=== PATIENT | female | born 1940 | race Caucasian/White ===

== ENCOUNTER → 2016-03-20 | Outpatient (CLI) | payer OTHER ==
[~2016-03-20] MED LIST: ASPI81TA28 PO; CHOL100010 PO; LATA0.009 OPB; LISI1TAB3 PO; PRLSR20 PO; ROSU10TA24 PO; TURM500T PO
--- NOTE | 2016-03-20 10:56 | DIAGNOSTIC IMAGING REPORT ---
LEFT HIP INJECTION UNDER FLUOROSCOPIC GUIDANCE CLINICAL HISTORY: Arthritis. Steroid injection. PROCEDURE: The risks, benefits, and alternatives to the procedure were discussed with the patient. Written informed consent was obtained. The patient was placed supine on the fluoroscopy table, and a left hip injection was performed under fluoroscopic guidance. The area was prepped and draped in the usual sterile fashion. The skin and soft tissues were anesthetized with local 1% lidocaine. The left hip joint was accessed utilizing a 22-gauge needle, and intra-articular positioning was confirmed by injecting a small volume of Optiray 300. The prescribed dosage of 2 cc of betamethasone and 8 cc of 0.5% bupivacaine was then injected into the joint space. The procedure was well tolerated and without immediate complication. The patient left the department in satisfactory condition. FLUOROSCOPY TIME: 11 seconds. IMPRESSION: Successful steroid injection of the left hip under fluoroscopic guidance. Electronically signed by: Dave Maradiaga M.D. 03/20/2016 10:54 AM Dictated Date/Time: 03/20/2016 10:52 AM
== END | disposition home or self-care (01) ==
LOC: C.RADBC 09:52
PROVIDERS: ATTEND Orthopaedic Surgery Sports Medicine
DX: M16.12 Unilateral primary osteoarthritis, left hip (principal)

== ENCOUNTER → 2016-09-21 | Outpatient (CLI) | payer OTHER ==
--- NOTE | 2016-09-21 14:39 | Discharge Instructions ---
Discharge Instructions Procedure Procedure Date: Sep 21, 2016. Reason for visit: Left Hip Pain/Djd. Discharge Discharge Date: Sep 21, 2016. Discharge Diagnosis: Left hip pain. Status post left hip steroid injection. Instructions Activity Recommendations: No limitations Return to School/Work: no limitations Recommended Home Diet: No Limitations Allergies Coded Allergies: Promethazine (Verified Adverse Reaction, Intermediate, GI SYMPTOMS, ) Restlessness,Agitation,Dyskinetic movements,confusion and Nausea [place] Recommendations: Call your doctor if: * Temperature above 101 degrees * Pain not relieved by pain medicine ordered * There is increased drainage or redness from any incision * You have any unanswered questions or concerns. Your Doctors Instructions noted above were prepared by provider Sloan Oswald. Patient Signature Section: Patient Instructions Signature Page Zo Elizabeth Patient (or Guardian) Signature/Date: I have read and understand the instructions given to me by my caregivers. Caregiver/RN/Doctor Signature/Date: The above-named patient and/or guardian has received patient instructions on this date. + Original Patient Signature Page (only) stays with chart. Please make copy for patient.
--- NOTE | 2016-09-21 14:53 | DIAGNOSTIC IMAGING REPORT ---
FLUOROSCOPIC GUIDED LEFT HIP STEROID INJECTION FLUOROSCOPY TIME: 16 seconds HISTORY: Left hip pain.. PROCEDURE: After obtaining written informed consent, the patient was placed supine on the fluoroscopy table. A suitable site for needle insertion was marked using fluoroscopic guidance. The left hip was prepped and draped in the usual sterile fashion. 1% lidocaine was used for skin, subcutaneous and deep soft tissue anesthesia. Under intermittent fluoroscopic guidance, a 22 gauge x 3.5 inch spinal needle was inserted into the left hip joint. 2 cc of Optiray 300 was injected to confirm the intra-articular location. This is followed by a mixture of 8cc of 0.5% bupivacaine and 2 cc of betamethasone at the request of the referring physician. The needle was then removed. There were no apparent complications. IMPRESSION: Fluoroscopic-guided left hip steroid injection without immediate complication. Electronically signed by: Cory Oswald 09/21/2016 2:52 PM Dictated Date/Time: 09/21/2016 2:51 PM
== END | disposition home or self-care (01) ==
LOC: C.RADBC 13:40
PROVIDERS: ATTEND Orthopaedic Surgery Sports Medicine
DX: M25.552 Pain in left hip (principal)

== ENCOUNTER 2017-03-23 21:41 | Inpatient (IN) | payer OTHER ==
[~2017-03-23] VITALS: Ht 154.9 cm; Wt 58.5 kg
[~2017-03-23 21:41] MED LIST changes: -ROSU10TA24 PO; +ROSU10TA35 PO
[2017-03-23] MEDS ORDERED: SODIUM CHLORIDE 0.9% 1000ML 1,000 ML IV STA (22:21)
[2017-03-23] MEDS ORDERED: SODIUM CHLORIDE 0.9% 1000ML 500 ML IV STA (22:21)
[2017-03-23] MEDS ORDERED: ONDANSETRON INJ 2 MG/ML 2 ML VIAL IV STA (22:21)
[2017-03-23] MEDS: FENTANYL CITRATE INJ 50 MCG/1 ML 2 ML VIAL IV PRN (22:43)
[2017-03-23 22:51] LABS: BASO % 0.1 %; BASO ABS # 0.01 K/uL (0-0.2); EOS % 0.1 %; EOS ABS # 0.02 K/uL (0-0.5); HEMATOCRIT 43.3 % (37-47); HEMOGLOBIN 14.8 g/dL (12.0-16.0); IG# 0.04 K/uL (0.00-0.02); LYMPH % 3.8 %; LYMPH ABS # 0.66 K/uL (1.2-3.4); MEAN CELL VOLUME 87.5 fL (80-100); MEAN CORPUSCULAR HEMOGLOBIN 29.9 pg (25-34); MEAN CORPUSCULAR HGB CONC 34.2 g/dl (32-36); MEAN PLATELET VOLUME 10.5 fL (7.4-10.4); MONO ABS # 0.53 K/uL (0.11-0.59); NEUT % 92.8 %; NEUT ABS # 16.26 K/uL (1.4-6.5); PLATELET COUNT 193 K/uL (130-400); RED CELL DISTRIBUTION WIDTH CV 13.9 % (11.5-14.5); RED CELL DISTRIBUTION WIDTH SD 43.7 fL (36.4-46.3); WHITE BLOOD COUNT 17.52 K/uL (4.8-10.8)
[2017-03-23 23:09] LABS: ALBUMIN 3.4 gm/dl (3.4-5.0); CALCIUM 9.9 mg/dl (8.5-10.1); CREATININE 0.89 mg/dl (0.60-1.20); POTASSIUM 3.6 mmol/L (3.5-5.1)
[2017-03-23 23:12] LABS: TOTAL PROTEIN 6.9 gm/dl (6.4-8.2)
[2017-03-24] VITALS (7 sets, daily range): BP systolic 127–171; BP diastolic 71–108; PULSE 76–78; TEMP 36.2–37.7; O2SAT 91–96; Ht 154.9 cm; Wt 58.5 kg
[2017-03-24] MEDS ORDERED: ONDANSETRON INJ 2 MG/ML 2 ML VIAL IV STA (00:14)
[2017-03-24] MEDS: FENTANYL CITRATE INJ 50 MCG/1 ML 2 ML VIAL IV PRN (00:20)
[2017-03-24] MEDS ORDERED: PIPERACILLIN/TAZOBACTAM 4.5 GM/100ML D5W IV STA (00:26)
[2017-03-24] MEDS ORDERED: XLTOPS OPB (00:53)
--- NOTE | 2017-03-24 01:02 | EMERGENCY ROOM VISIT NOTE ---
History Report prepared by Elaina: Moose Otoole Under the Supervision of: Dr. Ramiro Leung M.D. First contact with patient: 22:20 Chief Complaint: VOMITING Stated Complaint: COLITIS,PAIN IN INTESTINES,VOMITING,CANNOT GO History of Present Illness The patient is a 76 year old female who presents to the Emergency Room with complaints of constant severe abdominal pain starting 4 days ago. The patient's family states that the patient has a history of colitis, and she was given an enema two hours ago, and she has been having abdominal pain since then and vomiting. The patient notes that the pain is very similar to her last colitis flares. She has not had any appetite recently. The family states that the patient has been eating things that she is not supposed to. The patient additionally notes that she is having some shoulder pain. Pt denies LOC, headache, fevers, chills, diaphoresis, visual changes, neck pain, chest pain, breathing difficulties, back pain, melena, hematochezia, rectal bleeding, urinary symptoms, numbness, weakness, leg swelling, lymphadenopathy, rash, or other complaints. Source of History: patient, family Onset: 4 days ago Position: abdomen Symptom Intensity: severe Timing: constant Associated Symptoms: + vomiting Note: Associated symptoms: Shoulder pain. Review of Systems See HPI for pertinent positives and negatives. A total of ten systems were reviewed and were otherwise negative. Past Medical & Surgical Medical Problems: (1) Colitis (2) Diverticulosis (3) Hypertension Surgical Problems: (1) S/P hernia repair Family History Hypertension Social History Smoking Status: Never Smoker Alcohol Use: none Drug Use: none Marital Status: Housing Status: lives with significant other Occupation Status: retired Current/Historical Medications Scheduled Aspirin (Aspirin Ec), 81 MG PO DAILY Latanoprost (Latanoprost), 1 DROP OPB HS Lisinopril (Zestril), 30 MG PO DAILY Omeprazole (Prilosec), 20 MG PO DAILY Turmeric (Curcuma Longa) (Turmeric), 500 MG PO QAM Allergies Coded Allergies: Statins (Verified Adverse Reaction, Severe, joint pain, 03/24/17) Promethazine (Verified Adverse Reaction, Intermediate, GI SYMPTOMS, ) Restlessness,Agitation,Dyskinetic movements,confusion and Nausea Physical Exam Vital Signs Date Time Temp Pulse Resp B/P (MAP) Pulse Ox O2 Delivery O2 Flow Rate FiO2 03/24/17 00:20 93 20 172/112 97 Nasal Cannula 2.0 03/23/17 23:25 88 16 161/92 93 Room Air 03/23/17 22:49 79 03/23/17 22:05 36.8 88 20 169/90 93 Room Air Physical Exam GENERAL: Awake, alert, uncomfortable-appearing, in severe distress HENT: Normocephalic, atraumatic. Oropharynx unremarkable. EYES: Normal conjunctiva. Sclera non-icteric. NECK: Supple. No nuchal rigidity. FROM. No JVD. RESPIRATORY: Clear to auscultation. CARDIAC: Regular rate, normal rhythm. Extremities warm and well perfused. Pulses equal. ABDOMEN: Diffuse abdominal tenderness worse in the left lower quadrant. Soft, non-distended. No rebound or guarding. No masses. RECTAL: Deferred. MUSCULOSKELETAL: Chest examination reveals no tenderness. The back is symmetrical on inspection without obvious abnormality. There is no CVA tenderness to palpation. No joint edema. LOWER EXTREMITIES: Calves are equal size bilaterally and non-tender. No edema. No discoloration. NEURO: Normal sensorium. No sensory or motor deficits noted. SKIN: No rash or jaundice noted. Medical Decision & Procedures ER Provider Diagnostic Interpretation: CT scan of pelvis was concerning for colitis/diverticulitis per stat rad. Laboratory Results 03/23/17 22:40 Red Blood Count 4.95, Mean Corpuscular Volume 87.5, Mean Corpuscular Hemoglobin 29.9, Mean Corpuscular Hemoglobin Concent 34.2, Mean Platelet Volume 10.5, Neutrophils (%) (Auto) 92.8, Lymphocytes (%) (Auto) 3.8, Monocytes (%) (Auto) 3.0, Eosinophils (%) (Auto) 0.1, Basophils (%) (Auto) 0.1, Neutrophils # (Auto) 16.26, Lymphocytes # (Auto) 0.66, Monocytes # (Auto) 0.53, Eosinophils # (Auto) 0.02, Basophils # (Auto) 0.01 03/23/17 22:40 Test 03/23/17 22:40 03/23/17 22:45 03/23/17 23:05 White Blood Count 17.52 K/uL (4.8-10.8) Red Blood Count 4.95 M/uL (4.2-5.4) Hemoglobin 14.8 g/dL (12.0-16.0) Hematocrit 43.3 % (37-47) Mean Corpuscular Volume 87.5 fL (80-100) Mean Corpuscular Hemoglobin 29.9 pg (25-34) Mean Corpuscular Hemoglobin Concent 34.2 g/dl (32-36) Platelet Count 193 K/uL (130-400) Mean Platelet Volume 10.5 fL (7.4-10.4) Neutrophils (%) (Auto) 92.8 % Lymphocytes (%) (Auto) 3.8 % Monocytes (%) (Auto) 3.0 % Eosinophils (%) (Auto) 0.1 % Basophils (%) (Auto) 0.1 % Neutrophils # (Auto) 16.26 K/uL (1.4-6.5) Lymphocytes # (Auto) 0.66 K/uL (1.2-3.4) Monocytes # (Auto) 0.53 K/uL (0.11-0.59) Eosinophils # (Auto) 0.02 K/uL (0-0.5) Basophils # (Auto) 0.01 K/uL (0-0.2) RDW Standard Deviation 43.7 fL (36.4-46.3) RDW Coefficient of Variation 13.9 % (11.5-14.5) Immature Granulocyte % (Auto) 0.2 % Immature Granulocyte # (Auto) 0.04 K/uL (0.00-0.02) Anion Gap 10.0 mmol/L (3-11) Est Creatinine Clear Calc Drug Dose 40.5 ml/min Estimated GFR () 73.0 Estimated GFR (Non- 63.0 BUN/Creatinine Ratio 21.6 (10-20) Calcium Level 9.9 mg/dl (8.5-10.1) Total Bilirubin 0.9 mg/dl (0.2-1) Direct Bilirubin 0.2 mg/dl (0-0.2) Aspartate Amino Transf (AST/SGOT) 20 U/L (15-37) Alanine Aminotransferase (ALT/SGPT) 21 U/L (12-78) Alkaline Phosphatase 94 U/L (45-117) Total Protein 6.9 gm/dl (6.4-8.2) Albumin 3.4 gm/dl (3.4-5.0) Lipase 93 U/L (73-393) Bedside Lactic Acid Venous 2.12 mmol/L (0.90-1.70) Urine Color YELLOW Urine Appearance CLEAR (CLEAR) Urine pH 6.0 (4.5-7.5) Urine Specific [place] 1.025 (1.000-1.030) Urine Protein NEG (NEG) Urine Glucose (UA) NEG (NEG) Urine Ketones 3+ (NEG) Urine Occult Blood NEG (NEG) Urine Nitrite NEG (NEG) Urine Bilirubin NEG (NEG) Urine Urobilinogen NEG (NEG) Urine Leukocyte Esterase NEG (NEG) Laboratory results reviewed by me Medications Administered Medications (Trade) Dose Ordered Sig/See Route Start Time Stop Time Status Last Admin Dose Admin Sodium Chloride 1,000 ml @ 125 mls/hr Q8H STAT IV 03/23/17 22:21 03/24/17 06:20 03/23/17 22:21 125 MLS/HR Sodium Chloride 500 ml @ 999 mls/hr Q31M STAT IV 03/23/17 22:21 03/23/17 22:51 DC 03/23/17 22:41 999 MLS/HR Ondansetron HCl (Zofran Inj) 4 mg NOW STAT IV 03/23/17 22:21 03/23/17 22:24 DC 03/23/17 22:42 4 MG Fentanyl Citrate (Fentanyl Inj) 25 mcg Q15M PRN IV 03/23/17 22:30 04/06/17 22:29 03/24/17 00:20 25 MCG Ondansetron HCl (Zofran Inj) 4 mg NOW STAT IV 03/24/17 00:14 03/24/17 00:15 DC 03/24/17 00:18 4 MG Piperacillin Sod/ Tazobactam Sod (Zosyn Iv) 4.5 gm NOW STAT IV 03/24/17 00:26 03/24/17 00:27 DC 03/24/17 00:38 4.5 GM ECG Indication: abdominal pain, vomiting Rate (beats per minute): 80 Rhythm: normal sinus Findings: no acute ischemic change, no ectopy, other (poor R wave progression) ED Course 2221: The patient was evaluated in room B9. A complete history and physical exam was performed. I ordered Zofran 4mg IV, Sodium Chloride 500 ml @ 999 mls/ hr IV, and Sodium Chloride 1000 ml @ 125 mls/hr IV 2230: Fentanyl 25mcg IV 2354: I reevaluated the patient, and she was okay. Medical Decision Prior records/ancillary studies reviewed. Triage Nursing notes reviewed and agree them. Additional history obtained from family. The patient's history was concerning for abdominal pain. Differential diagnosis: Etiologies such as diverticulitis, mesenteric ischemia,appendicitis, PUD, biliary pathology, UTI, pancreatitis, obstruction, aortic pathology, infections , inflammatory bowel disease, renal colic, as well as others were entertained. Physical examination findings: As above. ER treatment provided: IV fentanyl 2 IV saline IV Zofran 2 On reassessment the patient felt better. IV Zosyn Diagnostics interpreted by me: ECG: Normal rhythm The labs revealed significant leukocytosis on CBC. Chemistry panel unremarkable. Elevation of serum lactate at 2.1. Urinalysis unremarkable. Imaging studies: CT scan as above The patient has diverticulitis/colitis. She will need admission to the hospital. Consultation: A consultation was placed with the nursing hospitalist. The case was discussed and diagnostics were reviewed. The patient was evaluated in the ER for further treatment. Medication Reconcilliation Current Medication List: was personally reviewed by me Blood Pressure Screening Patient's blood pressure: Elevated blood pressure Blood pressure disposition: Elevated BP felt to be situational Consults Time Called: 34 Consulting Physician: Dr. Rankin Returned Call: [phone] Discussed the case, history, and findings. Discussed treatment. He will evaluate the patient in the Emergency Room for further management in the hospital. Impression Primary Impression: Colitis Additional Impression: Diverticulitis Scribe Attestation The scribe's documentation has been prepared under my direction and personally reviewed by me in its entirety. I confirm that the note above accurately reflects all work, treatment, procedures, and medical decision making performed by me. Departure Information Dispostion Being Evaluated By Hospitalist Referrals Randolph Hahn M.D. (PCP) Patient Instructions My [facility] Problem Qualifiers
[2017-03-24] MEDS ORDERED: POTASSIUM CHLORIDE 20 MEQ TABCR PO STA (01:22)
[2017-03-24] MEDS ORDERED: ONDANSETRON INJ 2 MG/ML 2 ML VIAL IV PRN (01:30)
[2017-03-24] MEDS ORDERED: ACETAMINOPHEN 325 MG TAB PO PRN (01:30)
[2017-03-24] MEDS ORDERED: POTASSIUM CHLORIDE 10 MEQ TABCR ONE (01:39)
[2017-03-24] MEDS: SODIUM CHLORIDE 0.9% 1000ML 1,000 ML IV SCH ×2 (02:55→12:28)
[2017-03-24] MEDS ORDERED: NURSING VERBAL MED ORDER ONE (03:00)
[2017-03-24] MEDS ORDERED: KETOROLAC TROMETHAMINE 15 MG/ML VIAL IV. STA (03:02)
[2017-03-24] MEDS ORDERED: KETOROLAC TROMETHAMINE 15 MG/ML VIAL IV PRN (05:45)
--- NOTE | 2017-03-24 05:47 | History and Physical ---
History & Physical Date & Time of Service: Mar 24, 2017 at 05:42 Chief Complaint: Colitis Primary Care Physician: Randolph Hahn M.D. History of Present Illness Source: patient, family This is a 76 year old F on home medications of aspirin, lisinopril, prilosec, latanoprost only with abdominal pain primarily of the left side which have been going on for several days. Patient reports also constipation for weeks with poor oral intake as per patient and her family.Current symptoms also associated with nausea and vomiting. Patient has history of colitis in the past. Past Medical/Surgical History Medical Problems: (1) Hypertension Status: Chronic Surgical Problems: (1) S/P hernia repair Status: Resolved Family History Hypertension Social History Smoking Status: Never Smoker Drug Use: none Marital Status: Occupational Status: retired Immunizations History of Influenza Vaccine: No History of Tetanus Vaccine?: Unknown History of Pneumococcal: No History of Hepatitis B Vaccine: No Allergies Coded Allergies: Statins (Verified Adverse Reaction, Severe, joint pain, 03/24/17) Promethazine (Verified Adverse Reaction, Intermediate, GI SYMPTOMS, ) Restlessness,Agitation,Dyskinetic movements,confusion and Nausea Home Medications Scheduled Aspirin (Aspirin Ec), 81 MG PO DAILY Latanoprost (Latanoprost), 1 DROP OPB HS Lisinopril (Zestril), 30 MG PO DAILY Omeprazole (Prilosec), 20 MG PO DAILY Turmeric (Curcuma Longa) (Turmeric), 500 MG PO QAM Review of Systems Constitutional: No fever Eyes: No eye pain ENT: No nasal symptoms, No sore throat Respiratory: No cough, No sputum, No wheezing, No shortness of breath Cardiovascular: No chest pain, No edema, No palpitations Abdomen: + pain, + nausea, + vomiting, + constipation Genitourinary - Female: No dysuria Neurologic: No numbness/tingling Psychiatric: No substance abuse Endocrine: No excessive urination Hematologic / Lymphatic: No abnormal bleeding/bruising Integumentary: No rash Physical Exam Vital Signs Date Time Temp Pulse Resp B/P (MAP) Pulse Ox O2 Delivery O2 Flow Rate FiO2 03/24/17 02:40 37.7 78 18 163/98 96 Nasal Cannula 2.0 03/24/17 02:36 37.7 16 171/108 03/24/17 01:06 86 16 171/108 96 Nasal Cannula 2.0 03/24/17 00:20 93 20 172/112 97 Nasal Cannula 2.0 03/23/17 23:25 88 16 161/92 93 Room Air 03/23/17 22:49 79 03/23/17 22:05 36.8 88 20 169/90 93 Room Air General Appearance: + mild distress (from abdominal pain) Head: normocephalic, atraumatic Eyes: normal inspection, EOMI, sclerae normal ENT: normal ENT inspection, hearing grossly normal, pharynx normal Neck: supple, no JVD, trachea midline Respiratory/Chest: chest non-tender, lungs clear, normal breath sounds, no respiratory distress, no accessory muscle use Cardiovascular: regular rate, rhythm, no edema, no JVD Abdomen/GI: normal bowel sounds, soft, + pertinent finding (left sided abominal tenderness on palpation) Extremities/Musculoskelatal: no calf tenderness, no pedal edema, non-tender Neurologic/Psych: alert, oriented x 3 Diagnostics Laboratory Results Results Past 24 Hours Test 03/23/17 22:40 03/23/17 22:45 03/23/17 23:05 Range/Units White Blood Count 17.52 4.8-10.8 K/uL Red Blood Count 4.95 4.2-5.4 M/uL Hemoglobin 14.8 12.0-16.0 g/dL Hematocrit 43.3 37-47 % Mean Corpuscular Volume 87.5 80-100 fL Mean Corpuscular Hemoglobin 29.9 25-34 pg Mean Corpuscular Hemoglobin Concent 34.2 32-36 g/dl Platelet Count 193 130-400 K/uL Mean Platelet Volume 10.5 7.4-10.4 fL Neutrophils (%) (Auto) 92.8 % Lymphocytes (%) (Auto) 3.8 % Monocytes (%) (Auto) 3.0 % Eosinophils (%) (Auto) 0.1 % Basophils (%) (Auto) 0.1 % Neutrophils # (Auto) 16.26 1.4-6.5 K/uL Lymphocytes # (Auto) 0.66 1.2-3.4 K/uL Monocytes # (Auto) 0.53 0.11-0.59 K/uL Eosinophils # (Auto) 0.02 0-0.5 K/uL Basophils # (Auto) 0.01 0-0.2 K/uL RDW Standard Deviation 43.7 36.4-46.3 fL RDW Coefficient of Variation 13.9 11.5-14.5 % Immature Granulocyte % (Auto) 0.2 % Immature Granulocyte # (Auto) 0.04 0.00-0.02 K/uL Sodium Level 138 136-145 mmol/L Potassium Level 3.6 3.5-5.1 mmol/L Chloride Level 103 98-107 mmol/L Carbon Dioxide Level 25 21-32 mmol/L Anion Gap 10.0 3-11 mmol/L Blood Urea Nitrogen 19 7-18 mg/dl Creatinine 0.89 0.60-1.20 mg/dl Est Creatinine Clear Calc Drug Dose 40.5 ml/min Estimated GFR () 73.0 Estimated GFR (Non- 63.0 BUN/Creatinine Ratio 21.6 10-20 Random Glucose 145 70-99 mg/dl Calcium Level 9.9 8.5-10.1 mg/dl Total Bilirubin 0.9 0.2-1 mg/dl Direct Bilirubin 0.2 0-0.2 mg/dl Aspartate Amino Transf (AST/SGOT) 20 15-37 U/L Alanine Aminotransferase (ALT/SGPT) 21 12-78 U/L Alkaline Phosphatase 94 45-117 U/L Total Protein 6.9 6.4-8.2 gm/dl Albumin 3.4 3.4-5.0 gm/dl Lipase 93 73-393 U/L Bedside Lactic Acid Venous 2.12 0.90-1.70 mmol/L Urine Color YELLOW Urine Appearance CLEAR CLEAR Urine pH 6.0 4.5-7.5 Urine Specific [place] 1.025 1.000-1.030 Urine Protein NEG NEG Urine Glucose (UA) NEG NEG Urine Ketones 3+ NEG Urine Occult Blood NEG NEG Urine Nitrite NEG NEG Urine Bilirubin NEG NEG Urine Urobilinogen NEG NEG Urine Leukocyte Esterase NEG NEG Impression Assessment and Plan 76 year old Female with left side abdominal pain associated with nausea and vomiting. CT abdomen concerning for diverticulosis vs diverticulitis vs colitis. Patient also has dense material of gallbladder but pain is mostly left sided. diverticulosis vs diverticulitis vs colitis as seen on CT imaging given leukocytosis of 17,000 there is concern that patient may have inflammatory process rather than diverticulosis patient received Zosyn in the ED for possible Diverticulitis vs Colitis caused by infectious etiology, will switch to IV ciprofloxacin and IV Flagyl for more GI and anaerobic coverage Continue IV fluids, place on liquid diet for now as tolerated send stool culture, fecal occult blood stool patient having constipation and senna and colace ordered however patient has been making bowel movements acetaminophen and toradol prn for abdominal pain gastroenterology consult requested densities of gallbladder reported on CT abdomen ordered ultrasound to rule out gallstones HTN continue home dose lisinopril hydralazine prn Continue other home medications of PPI, aspirin and Latanoprost DVT ppx: SCDs Family: daughter [phone] Advanced Directives Existing Living Will: No Existing Power of Latex Caster: Yes VTE Prophylaxis VTE Risk Assessment Done? Y/N: Yes Risk Level: Moderate
[2017-03-24] MEDS: CIPROFLOXACIN / D5W 400 MG in PREMIXED IN D5W 200 ML IV SCH ×2 (05:52→17:51)
[2017-03-24] MEDS: METRONIDAZOLE / NSS 500 MG in PREMIXED NSS 100 ML IV SCH ×3 (05:52→21:24)
[2017-03-24] MEDS ORDERED: INFLUENZA VACCINE HIGH DOSE 65+ 0.5 ML SYR IM. ONE (06:00)
[2017-03-24] MEDS ORDERED: INFLUENZA ADMINISTRATION CHARGE ONE (06:00)
[2017-03-24] MEDS ORDERED: HydrALAZINE HCL 20 MG/ML VIAL IV. PRN (06:00)
[2017-03-24] MEDS ORDERED: PNEUMOCOCCAL ADMINISTRATION CHARGE ONE (06:00)
[2017-03-24] MEDS ORDERED: PNEUMOCOCCAL POLYSACCHARIDES 25 MCG/0.5 ML VIAL/SYR IM. ONE (06:00)
--- NOTE | 2017-03-24 07:54 | DIAGNOSTIC IMAGING REPORT ---
CT SCAN OF THE ABDOMEN AND PELVIS WITHOUT IV CONTRAST CLINICAL HISTORY: Generalized abdominal pain. COMPARISON STUDY: Abdominal CT dated 02/29/2016. TECHNIQUE: CT scan of the abdomen and pelvis is performed from the lung bases to the proximal femora. Images are reviewed in the axial, sagittal, and coronal planes. IV contrast was not administered for this examination as per the referring clinician. Note that the examination was performed in suboptimal fashion without oral and IV contrast. A dose lowering technique was utilized adhering to the principles of ALARA. CT DOSE: 257.91 mGy.cm FINDINGS: Lung bases: The heart is normal in size and without pericardial effusion. There is patchy airspace consolidation at the left lung base, similar in appearance to the 2016 examination. Atelectasis is seen at the right lung base. Emphysematous change is suspected. No pleural effusion is identified. There is a small hiatal hernia. Liver: The unenhanced liver is normal in size, contour, and attenuation. There is no intrahepatic biliary ductal dilatation. Gallbladder: Hyperdense material within the gallbladder likely represents stones/sludge. Spleen: Normal in size and attenuation. Pancreas: The unenhanced pancreas is moderately atrophic and grossly unremarkable. Adrenal glands: Unremarkable. Kidneys: The unenhanced kidneys demonstrate mild cortical atrophy and are without hydronephrosis. There are no renal calculi identified. There is no evidence of contour deforming renal mass lesion. Foci of cortical scarring are present in the left kidney. Abdominal vasculature: The abdominal aorta is normal in course and caliber noting moderate to advanced atherosclerotic calcification. Bowel: There is moderate to advanced diverticulosis of left colon without CT evidence of acute diverticulitis. Colonic fecal retention is observed. Mild pericolonic inflammatory stranding is identified involving the left colon, greatest involving the splenic flexure and the descending colon. The appearance suggests a nonspecific colitis. The appendix is well-visualized and normal. Peritoneum: There is no intraperitoneal free air or abdominal ascites. Lymphadenopathy: None. Pelvic viscera: The bladder is normal as visualized. There are calcified uterine fibroids. A 3.6 cm simple appearing cystic structure is present in the left adnexa on image #311. This is likely related to the left ovary. A right inguinal hernia is identified. Skeletal structures: The skeletal structures are osteopenic. There is moderate lumbar sacral spondylosis as well as scoliosis. Grade 1 anterolisthesis is seen at L4-L5. No lytic or blastic lesions are identified. Advanced arthritic change is seen in the left hip. IMPRESSION: 1. Suboptimal examination without oral and IV contrast. 2. Findings suggest a nonspecific colitis of the left colon, likely on an infectious or inflammatory basis. 3. Moderate to advanced diverticulosis of the left colon without convincing CT evidence of acute diverticulitis. 4. Airspace opacities are present at the left lung base. These have not significantly changed from 02/29/2016 and likely represent chronic change/fibrosis. Correlate clinically for evidence of superimposed pneumonia. 5. There is a 3.6 cm simple appearing cystic lesion in the left adnexa, likely related to the left ovary. This has modestly increased in size from 2016. Follow-up with a nonemergent pelvic ultrasound is recommended for further assessment. 6. Suspect cholelithiasis/biliary sludge. There is no CT evidence of acute cholecystitis. 7. Additional findings as above. Electronically signed by: Dave Maradiaga M.D. 03/24/2017 7:53 AM Dictated Date/Time: 03/24/2017 7:45 AM
--- NOTE | 2017-03-24 09:12 | DIAGNOSTIC IMAGING REPORT ---
ABDOMINAL ULTRASOUND, RIGHT UPPER QUADRANT HISTORY: Right upper quadrant abdominal pain. rule out gallstones. COMPARISON: Abdomen and pelvis CT 03/23/2017. FINDINGS: Pancreas: The pancreas demonstrates a normal echotexture. Liver: Mildly enlarged measuring 19 cm in length. A 1.4 cm hyperechoic focus within the liver adjacent to the anamaria hepatis. This favors focal fat. Gallbladder: No gallbladder wall thickening. No gallstones. No gallbladder sludge identified. CBD: 5 mm. Right kidney: No hydronephrosis. IMPRESSION: Normal gallbladder. No gallstones or sludge identified. Electronically signed by: Paxton Lynn M.D. 03/24/2017 9:11 AM Dictated Date/Time: 03/24/2017 9:09 AM
[2017-03-24] MEDS: LISINOPRIL 20 MG TAB PO SCH (09:24)
[2017-03-24] MEDS: SENNA 8.6 MG TAB PO SCH (09:24)
[2017-03-24] MEDS: PANTOprazole SOD 40 MG TAB PO SCH (09:25)
[2017-03-24] MEDS: DOCUSATE SODIUM 100 MG CAP PO SCH ×2 (09:26→20:00)
[2017-03-24] MEDS: ASPIRIN 81 MG ECTAB PO SCH (09:26)
--- NOTE | 2017-03-24 09:38 | Gastrointestinal Consultation ---
Gastrointestinal Consultation Date of Consultation: Mar 24, 2017 Attending Physician: Everette Rankin Consulting Physician: Mike Bocanegra Reason for Consultation: Colitis vs diverticulitis. History of Present Illness Patient is a 76 year old female w PMHx of HTN, GERD who presented to ED w c/o L sided abd pain since Wednesday. Was eating Spaghetti when pain happened. Had associated nausea, vomiting. Denies travels, sick contact, undercooked meats. Underlying constipation and can go several days w/o good BM. Last BM overnight. She denies any blood in stools. Labs obtained yesterday showed leukocytosis WBC 17K, H/H normal. UA w ketones, CMP relatively unremarkable. CT abd/pelvis w/o contrast showed L sided non specific colitis, diverticulosis w/o diverticulitis , and ? gallbladder stone/sludge. Though u/s this AM showed normal gallbladder w /o stones/sludge. LFTs, Lipase normal. Pt reports has an established GI provider in [place]. Last colonoscopy done Spring 2016 which showed diverticulosis but otherwise normal exam. Denies family hx of IBD, colorectal ca. Past Medical/Surgical History Medical Problems: (1) Abdominal pain Status: Acute (2) Abdominal pain Status: Acute (3) Constipation Status: Acute (4) Diarrhea Status: Acute (5) Diverticulitis Status: Acute (6) Diverticulitis Status: Acute (7) Diverticulitis Status: Acute (8) Proctocolitis Status: Acute Past Medical History: As above Past Surgical History: S/P hernia repair Family History Hypertension Social History Smoking Status: Never Smoker Alcohol Use: none Drug Use: none Marital Status: Housing Status: lives with significant other Occupation Status: retired Allergies Coded Allergies: Statins (Verified Adverse Reaction, Severe, joint pain, 03/24/17) Promethazine (Verified Adverse Reaction, Intermediate, GI SYMPTOMS, ) Restlessness,Agitation,Dyskinetic movements,confusion and Nausea Current Medications Home Meds and Scripts Medications Dose Route/Sig Max Daily Dose Days Date Category Latanoprost 37 Drops/2.5 Ml Soln 1 Drop OPB HS 03/24/17 Reported Turmeric (Turmeric (Curcuma Longa)) 500 Mg Tab 500 Mg PO QAM 02/29/16 Reported Aspirin Ec (Aspirin) 81 Mg Tab 81 Mg PO DAILY 02/29/16 Reported Zestril (Lisinopril) 30 Mg Tab 30 Mg PO DAILY 05/02/15 Reported Prilosec (Omeprazole) 20 Mg Capcr 20 Mg PO DAILY 05/02/15 Reported Review of Systems Constitutional: No fever, No chills Respiratory: No cough, No shortness of breath Abdomen: + pain, + nausea, + constipation, No vomiting, No diarrhea, No GI bleeding Skin: No rash, No itch Physical Exam Date Time Temp Pulse Resp B/P (MAP) Pulse Ox O2 Delivery O2 Flow Rate FiO2 03/24/17 06:59 36.2 76 17 135/82 (99) 92 Room Air 03/24/17 02:40 37.7 78 18 163/98 96 Nasal Cannula 2.0 03/24/17 02:36 37.7 16 171/108 03/24/17 01:06 86 16 171/108 96 Nasal Cannula 2.0 03/24/17 00:20 93 20 172/112 97 Nasal Cannula 2.0 03/23/17 23:25 88 16 161/92 93 Room Air 03/23/17 22:49 79 03/23/17 22:05 36.8 88 20 169/90 93 Room Air General Appearance: WD/WN, no apparent distress Eyes: normal inspection, PERRL, EOMI Neck: supple, no JVD, trachea midline Respiratory/Chest: normal breath sounds, no respiratory distress, no accessory muscle use Cardiovascular: regular rate, rhythm, no gallop, no murmur Abdomen: normal bowel sounds, soft, + tenderness (Along L side abd and mid periumbilical region ) Extremities: normal inspection, no pedal edema, no calf tenderness Neurologic/Psych: alert, normal mood/affect, oriented x 3 Skin: normal color, no jaundice, no rash Laboratory Results Last 24 Hours Test 03/23/17 22:40 03/23/17 22:45 03/23/17 23:05 White Blood Count 17.52 K/uL Red Blood Count 4.95 M/uL Hemoglobin 14.8 g/dL Hematocrit 43.3 % Mean Corpuscular Volume 87.5 fL Mean Corpuscular Hemoglobin 29.9 pg Mean Corpuscular Hemoglobin Concent 34.2 g/dl Platelet Count 193 K/uL Mean Platelet Volume 10.5 fL Neutrophils (%) (Auto) 92.8 % Lymphocytes (%) (Auto) 3.8 % Monocytes (%) (Auto) 3.0 % Eosinophils (%) (Auto) 0.1 % Basophils (%) (Auto) 0.1 % Neutrophils # (Auto) 16.26 K/uL Lymphocytes # (Auto) 0.66 K/uL Monocytes # (Auto) 0.53 K/uL Eosinophils # (Auto) 0.02 K/uL Basophils # (Auto) 0.01 K/uL RDW Standard Deviation 43.7 fL RDW Coefficient of Variation 13.9 % Immature Granulocyte % (Auto) 0.2 % Immature Granulocyte # (Auto) 0.04 K/uL Sodium Level 138 mmol/L Potassium Level 3.6 mmol/L Chloride Level 103 mmol/L Carbon Dioxide Level 25 mmol/L Anion Gap 10.0 mmol/L Blood Urea Nitrogen 19 mg/dl Creatinine 0.89 mg/dl Est Creatinine Clear Calc Drug Dose 40.5 ml/min Estimated GFR () 73.0 Estimated GFR (Non- 63.0 BUN/Creatinine Ratio 21.6 Random Glucose 145 mg/dl Calcium Level 9.9 mg/dl Total Bilirubin 0.9 mg/dl Direct Bilirubin 0.2 mg/dl Aspartate Amino Transf (AST/SGOT) 20 U/L Alanine Aminotransferase (ALT/SGPT) 21 U/L Alkaline Phosphatase 94 U/L Total Protein 6.9 gm/dl Albumin 3.4 gm/dl Lipase 93 U/L Bedside Lactic Acid Venous 2.12 mmol/L Urine Color YELLOW Urine Appearance CLEAR Urine pH 6.0 Urine Specific Williams 1.025 Urine Protein NEG Urine Glucose (UA) NEG Urine Ketones 3+ Urine Occult Blood NEG Urine Nitrite NEG Urine Bilirubin NEG Urine Urobilinogen NEG Urine Leukocyte Esterase NEG Impression Patient is a 76 year old female w L sided abd pain since last Wednesday associated w N/V. Baseline constipation, denies blood in stools. CT abd/pelvis w /o contrast showed L sided non specific colitis, diverticulosis w/o diverticulitis. Plan - Obtain stool cx, Cdiff - Repeat CBC to monitor WBC ct - Agree w Cipro/Flagyl at this time and to continue for 10 days total. - CL diet. - ? ischemic colitis given colitis pattern though no bloody stools. She was recommended to f/u w her primary GI provider at [place] upon DC to determine if repeat colonoscopy is necessary ATTESTATION: I have performed a history and physical examination of this patient and reviewed the electronic record. Specifically, on physical examination there is left sided direct abdominal tenderness. I have discussed the case with JUAN Rizo. The above note reflects my findings, conclusions, and recommendations. Mike Bocanegra MD
[2017-03-24 09:59] LABS: HEMATOCRIT 40.6 % (37-47); HEMOGLOBIN 13.7 g/dL (12.0-16.0); MEAN CELL VOLUME 86.9 fL (80-100); MEAN CORPUSCULAR HEMOGLOBIN 29.3 pg (25-34); MEAN CORPUSCULAR HGB CONC 33.7 g/dl (32-36); MEAN PLATELET VOLUME 10.5 fL (7.4-10.4); PLATELET COUNT 192 K/uL (130-400); RED CELL DISTRIBUTION WIDTH CV 13.9 % (11.5-14.5); WHITE BLOOD COUNT 10.08 K/uL (4.8-10.8)
--- NOTE | 2017-03-24 17:24 | Progress Note ---
Progress Note Date of Service Mar 24, 2017. Progress Note ATTENDING NOTE: pt admitted earlier , see H&P for detail 76 yo F admitted with left sided abdominal pain , diarrhea CT abdomen /pelvis -diverticulosis with evidence of diverticulitis on empiric Abx with Cipro /Flagyl clinically improved , white count normalized appreciate input form GI ordered for clear liquid diet , will be advanced as tolerated Stool sample positive for C diff ordered for PO Vancomycin contact precaution
[2017-03-24] MEDS: VANCOMYCIN HCL 125 MG/2.5ML SOLN PO SCH (17:51)
[2017-03-24] MEDS: RASPBERRY SYRUP 5 ML UDP PO SCH (17:51)
[2017-03-24] MEDS: LATANOPROST 0.005% OP SOLN 2.5 ML BTL OPB SCH (22:01)
--- NOTE | 2017-03-24 22:18 | Progress Note ---
Progress Note Date of Service Mar 24, 2017. Progress Note ATTENDING NOTE: CT ABDOMEN PELVIS SHOWS INCIDENTAL FINDING OF LEFT OVARIAN CYSTIC LESION : There is a 3.6 cm simple appearing cystic lesion in the left adnexa, likely related to the left ovary. This has modestly increased in size from 2016. Follow-up with a nonemergent pelvic ultrasound is recommended for further assessment. Ordered for Pelvic USG tomorrow CA 125 level to be drawn with AM lab
[2017-03-25] MEDS: RASPBERRY SYRUP 5 ML UDP PO SCH ×5 (00:10→23:39)
[2017-03-25] MEDS: VANCOMYCIN HCL 125 MG/2.5ML SOLN PO SCH ×5 (00:11→23:39)
[2017-03-25] MEDS: CIPROFLOXACIN / D5W 400 MG in PREMIXED IN D5W 200 ML IV SCH (05:07)
[2017-03-25] MEDS: METRONIDAZOLE / NSS 500 MG in PREMIXED NSS 100 ML IV SCH (05:09)
[2017-03-25 06:41] LABS: BASO % 0.5 %; BASO ABS # 0.03 K/uL (0-0.2); EOS % 1.5 %; HEMOGLOBIN 13.4 g/dL (12.0-16.0); IG# 0.02 K/uL (0.00-0.02); LYMPH % 20.9 %; LYMPH ABS # 1.39 K/uL (1.2-3.4); MEAN CELL VOLUME 87.5 fL (80-100); MEAN CORPUSCULAR HEMOGLOBIN 29.3 pg (25-34); MEAN CORPUSCULAR HGB CONC 33.5 g/dl (32-36); MEAN PLATELET VOLUME 10.4 fL (7.4-10.4); MONO % 10.8 %; MONO ABS # 0.72 K/uL (0.11-0.59); NEUT ABS # 4.38 K/uL (1.4-6.5); PLATELET COUNT 197 K/uL (130-400); RED CELL DISTRIBUTION WIDTH CV 14.1 % (11.5-14.5); RED CELL DISTRIBUTION WIDTH SD 45.3 fL (36.4-46.3); WHITE BLOOD COUNT 6.64 K/uL (4.8-10.8)
[2017-03-25 07:19] LABS: ALBUMIN 2.9 gm/dl (3.4-5.0); CALCIUM 9.2 mg/dl (8.5-10.1); CREATININE 0.75 mg/dl (0.60-1.20); POTASSIUM 3.4 mmol/L (3.5-5.1)
[2017-03-25 07:39] VITALS: BP 118/75; PULSE 61; TEMP 36.7; O2SAT 93
[2017-03-25 08:00] VITALS: O2SAT 93
[2017-03-25] MEDS: DOCUSATE SODIUM 100 MG CAP PO SCH (08:00)
[2017-03-25] MEDS: ASPIRIN 81 MG ECTAB PO SCH (08:00)
[2017-03-25] MEDS: SENNA 8.6 MG TAB PO SCH (08:00)
[2017-03-25] MEDS: PANTOprazole SOD 40 MG TAB PO SCH (08:02)
[2017-03-25] MEDS: LISINOPRIL 20 MG TAB PO SCH (08:03)
--- NOTE | 2017-03-25 11:03 | DIAGNOSTIC IMAGING REPORT ---
PELVIC ULTRASOUND, TRANSABDOMINAL HISTORY: left ovarian cystic lesion in post menopausal pt COMPARISON: Abdomen and pelvis CT 03/23/2017. FINDINGS: The patient deferred transvaginal scanning. Uterus: Partially obscured by overlying bowel gas. Only the lower uterine segment is visualized and appears to be within normal limits. The endometrial stripe is not well-visualized Right ovary: Obscured by overlying bowel gas. Left ovary: Obscured by overlying bowel gas. Miscellaneous:No pelvic free fluid. IMPRESSION: Transabdominal scanning of the pelvis which was significantly limited due to overlying bowel gas. The ovaries were obscured. The uterus is only partially visualized. Electronically signed by: Paxton Lynn M.D. 03/25/2017 11:02 AM Dictated Date/Time: 03/25/2017 10:36 AM
[2017-03-25] MEDS ORDERED: POTASSIUM CHLORIDE 10 MEQ TABCR PO ONE (11:30)
--- NOTE | 2017-03-25 11:30 | Gastroenterology Progress Note ---
Progress Note Date of Service: Mar 25, 2017 Subjective Pt evaluation today including: conversation w/ patient, physical exam, chart review, lab review, review of studies, review of inpatient medication list Ms. Elizabeth is a 76 yr old female admitted with diarrhea and abdominal pain. CT with left sided colitis. Thus far, stool studies are (-). No increased pain with after drinking a liquid diet. Review of Systems Constitutional: No fever ENT: No hearing loss Respiratory: No cough Cardiac: No chest pain Abdomen: + pain (improved; still with some left lower abdomen pain), No nausea Female : No dysuria Neuro: No memory loss Psych: No depression symptoms Heme: No abnormal bleeding/bruising Endo: No fatigue Skin: No rash Medications Current Inpatient Medications Medications (Trade) Dose Ordered Sig/See Route Start Time Stop Time Status Last Admin Dose Admin Aspirin (Ecotrin Tab) 81 mg DAILY PO 03/24/17 08:00 04/23/17 08:59 03/25/17 08:00 81 MG Latanoprost (Xalatan Oph Soln) 37 drops HS OPB 03/24/17 21:00 04/23/17 20:59 03/24/17 22:01 37 DROPS Lisinopril (Zestril Tab) 30 mg DAILY PO 03/24/17 08:00 04/23/17 08:59 03/25/17 08:03 30 MG Pantoprazole Sodium (Protonix Tab) 40 mg QAM PO 03/24/17 08:00 04/23/17 07:59 03/25/17 08:02 40 MG Senna (Senokot Tab) 8.6 mg QAM PO 03/24/17 08:00 04/23/17 08:59 03/24/17 09:24 8.6 MG Docusate Sodium (coLACE CAP) 100 mg BID PO 03/24/17 08:00 04/23/17 08:59 03/24/17 09:26 100 MG Acetaminophen (Tylenol Tab) 650 mg Q4H PRN PO 03/24/17 01:30 04/23/17 01:29 Ondansetron HCl (Zofran Inj) 4 mg Q6H PRN IV 03/24/17 01:30 04/23/17 01:29 Ketorolac Tromethamine (Toradol Inj) 15 mg Q6H PRN IV 03/24/17 05:45 03/29/17 05:44 03/24/17 11:36 15 MG Hydralazine HCl (HydrALAZINE INJ) 10 mg Q6H PRN IV. 03/24/17 06:00 04/23/17 05:59 Vancomycin HCl (Vancomycin Oral Soln) 125 mg Q6H PO 03/24/17 18:00 04/03/17 17:59 03/25/17 05:08 125 MG Raspberry (Raspberry Syrup 5ml Cup) 5 ml Q6H PO 03/24/17 18:00 04/07/17 17:59 03/25/17 05:07 5 ML Potassium Chloride (Klor-Con M10) 20 meq NOW ONCE PO 03/25/17 11:30 03/25/17 11:31 Objective Vital Signs Date Time Temp Pulse Resp B/P (MAP) Pulse Ox O2 Delivery O2 Flow Rate FiO2 03/25/17 07:39 36.7 61 16 118/75 (89) 93 Room Air 03/25/17 00:30 Room Air 03/24/17 23:29 36.7 78 18 135/75 (95) 91 Room Air 03/24/17 20:00 Room Air 03/24/17 16:00 92 Room Air 03/24/17 15:09 37.0 77 20 127/71 (89) 92 Room Air Physical Exam General Appearance: no apparent distress ENT: pharynx normal Neck: supple, thyroid normal, no JVD Respiratory/Chest: lungs clear Cardiovascular: regular rate, rhythm, no JVD, no murmur Abdomen: soft, + tenderness (moderate LLQ tenderness) Neurologic/Psych: alert, normal mood/affect, oriented x 3 Skin: no jaundice Laboratory Results Last 24 Hours Test 03/24/17 11:30 03/25/17 06:29 Stool Occult Blood POSITIVE White Blood Count 6.64 K/uL Red Blood Count 4.57 M/uL Hemoglobin 13.4 g/dL Hematocrit 40.0 % Mean Corpuscular Volume 87.5 fL Mean Corpuscular Hemoglobin 29.3 pg Mean Corpuscular Hemoglobin Concent 33.5 g/dl Platelet Count 197 K/uL Mean Platelet Volume 10.4 fL Neutrophils (%) (Auto) 66.0 % Lymphocytes (%) (Auto) 20.9 % Monocytes (%) (Auto) 10.8 % Eosinophils (%) (Auto) 1.5 % Basophils (%) (Auto) 0.5 % Neutrophils # (Auto) 4.38 K/uL Lymphocytes # (Auto) 1.39 K/uL Monocytes # (Auto) 0.72 K/uL Eosinophils # (Auto) 0.10 K/uL Basophils # (Auto) 0.03 K/uL RDW Standard Deviation 45.3 fL RDW Coefficient of Variation 14.1 % Immature Granulocyte % (Auto) 0.3 % Immature Granulocyte # (Auto) 0.02 K/uL Sodium Level 140 mmol/L Potassium Level 3.4 mmol/L Chloride Level 109 mmol/L Carbon Dioxide Level 25 mmol/L Anion Gap 6.0 mmol/L Blood Urea Nitrogen 13 mg/dl Creatinine 0.75 mg/dl Est Creatinine Clear Calc Drug Dose 52.4 ml/min Estimated GFR () 89.7 Estimated GFR (Non- 77.4 BUN/Creatinine Ratio 17.2 Random Glucose 88 mg/dl Lactic Acid Level 0.9 mmol/L Calcium Level 9.2 mg/dl Magnesium Level 1.9 mg/dl Total Bilirubin 0.7 mg/dl Aspartate Amino Transf (AST/SGOT) 18 U/L Alanine Aminotransferase (ALT/SGPT) 21 U/L Alkaline Phosphatase 70 U/L Total Protein 6.0 gm/dl Albumin 2.9 gm/dl Globulin 3.1 gm/dl Albumin/Globulin Ratio 0.9 Thyroid Stimulating Hormone (TSH) 1.640 uIu/ml Assessment and Plan Ms. Elizabeth is a 76 yr old female with abdominal pain, CT with left sided colitis. She likely has ischemic vs. infectious colitis. Plan: 1. Antibiotics (Cipro/Flagyl) x 10 days total. 2. Increase fluid intake po. 3. Pt to f/u with gastro in [place]. 4. Diet has been increased to soft texture, low fiber. 5. GI will sign off. ATTESTATION: I have performed a history and physical examination of this patient and reviewed the electronic record. Specifically, on history she is feeling much better, and on physical examination she has mild left sided abdominal tenderness. I have discussed the case with JUAN Garrett. The above note reflects my findings, conclusions, and recommendations. Mike Bocanegra MD
--- NOTE | 2017-03-25 11:57 | Medical Consult ---
Consultation Date of Consultation: Mar 25, 2017. Attending Physician: Charity Duran M.D. Reason for Consultation: ovarian cyst History of Present Illness 76 [id number] [id number] post menopausal since age 50 or so with no history of gynecological problems. No abnormal Pap 's in the past. No family history of endometrial or ovarian cancer. She did have prior CT scan which showed left ovarian cyst in 2016. She presents with colitis and GI complaints with constipation and possible alternating diarrhea after taking laxatives. She is feeling better now and will start on a diet for lunch.. Recent CT scan done yesterday shows simple cyst of left ovary which was present in a prior study. Pelvic ultrasound in-cnclusive due to overlying bowel. Ca-125 is pending. Past Medical/Surgical History Medical Problems: (1) Abdominal pain Status: Acute (2) Abdominal pain Status: Acute (3) Constipation Status: Acute (4) Diarrhea Status: Acute (5) Diverticulitis Status: Acute (6) Diverticulitis Status: Acute (7) Diverticulitis Status: Acute (8) Proctocolitis Status: Acute Family History Hypertension Social History Smoking Status: Never Smoker Drug Use: none Marital Status: Housing Status: lives with significant other Occupation Status: retired Allergies Coded Allergies: Statins (Verified Adverse Reaction, Severe, joint pain, 03/24/17) Promethazine (Verified Adverse Reaction, Intermediate, GI SYMPTOMS, ) Restlessness,Agitation,Dyskinetic movements,confusion and Nausea Current Inpatient Medications Current Inpatient Medications Medications (Trade) Dose Ordered Sig/See Route Start Time Stop Time Status Last Admin Dose Admin Aspirin (Ecotrin Tab) 81 mg DAILY PO 03/24/17 08:00 04/23/17 08:59 03/25/17 08:00 81 MG Latanoprost (Xalatan Oph Soln) 37 drops HS OPB 03/24/17 21:00 04/23/17 20:59 03/24/17 22:01 37 DROPS Lisinopril (Zestril Tab) 30 mg DAILY PO 03/24/17 08:00 04/23/17 08:59 03/25/17 08:03 30 MG Pantoprazole Sodium (Protonix Tab) 40 mg QAM PO 03/24/17 08:00 04/23/17 07:59 03/25/17 08:02 40 MG Acetaminophen (Tylenol Tab) 650 mg Q4H PRN PO 03/24/17 01:30 04/23/17 01:29 Ondansetron HCl (Zofran Inj) 4 mg Q6H PRN IV 03/24/17 01:30 04/23/17 01:29 Ketorolac Tromethamine (Toradol Inj) 15 mg Q6H PRN IV 03/24/17 05:45 03/29/17 05:44 03/24/17 11:36 15 MG Hydralazine HCl (HydrALAZINE INJ) 10 mg Q6H PRN IV. 03/24/17 06:00 04/23/17 05:59 Vancomycin HCl (Vancomycin Oral Soln) 125 mg Q6H PO 03/24/17 18:00 04/03/17 17:59 03/25/17 05:08 125 MG Raspberry (Raspberry Syrup 5ml Cup) 5 ml Q6H PO 03/24/17 18:00 04/07/17 17:59 03/25/17 05:07 5 ML Review of Systems Abdomen: + constipation Physical Exam Date Time Temp Pulse Resp B/P (MAP) Pulse Ox O2 Delivery O2 Flow Rate FiO2 03/25/17 07:39 36.7 61 16 118/75 (89) 93 Room Air 03/25/17 00:30 Room Air 03/24/17 23:29 36.7 78 18 135/75 (95) 91 Room Air 03/24/17 20:00 Room Air 03/24/17 16:00 92 Room Air 03/24/17 15:09 37.0 77 20 127/71 (89) 92 Room Air General Appearance: no apparent distress, + thin Abdomen/GI: non tender, soft, no organomegaly Neurologic/Psych: alert, normal mood/affect, oriented x 3 Skin: normal color, warm/dry, no rash Laboratory Results Last 24 Hours Test 03/25/17 06:29 White Blood Count 6.64 K/uL Red Blood Count 4.57 M/uL Hemoglobin 13.4 g/dL Hematocrit 40.0 % Mean Corpuscular Volume 87.5 fL Mean Corpuscular Hemoglobin 29.3 pg Mean Corpuscular Hemoglobin Concent 33.5 g/dl Platelet Count 197 K/uL Mean Platelet Volume 10.4 fL Neutrophils (%) (Auto) 66.0 % Lymphocytes (%) (Auto) 20.9 % Monocytes (%) (Auto) 10.8 % Eosinophils (%) (Auto) 1.5 % Basophils (%) (Auto) 0.5 % Neutrophils # (Auto) 4.38 K/uL Lymphocytes # (Auto) 1.39 K/uL Monocytes # (Auto) 0.72 K/uL Eosinophils # (Auto) 0.10 K/uL Basophils # (Auto) 0.03 K/uL RDW Standard Deviation 45.3 fL RDW Coefficient of Variation 14.1 % Immature Granulocyte % (Auto) 0.3 % Immature Granulocyte # (Auto) 0.02 K/uL Sodium Level 140 mmol/L Potassium Level 3.4 mmol/L Chloride Level 109 mmol/L Carbon Dioxide Level 25 mmol/L Anion Gap 6.0 mmol/L Blood Urea Nitrogen 13 mg/dl Creatinine 0.75 mg/dl Est Creatinine Clear Calc Drug Dose 52.4 ml/min Estimated GFR () 89.7 Estimated GFR (Non- 77.4 BUN/Creatinine Ratio 17.2 Random Glucose 88 mg/dl Lactic Acid Level 0.9 mmol/L Calcium Level 9.2 mg/dl Magnesium Level 1.9 mg/dl Total Bilirubin 0.7 mg/dl Aspartate Amino Transf (AST/SGOT) 18 U/L Alanine Aminotransferase (ALT/SGPT) 21 U/L Alkaline Phosphatase 70 U/L Total Protein 6.0 gm/dl Albumin 2.9 gm/dl Globulin 3.1 gm/dl Albumin/Globulin Ratio 0.9 Thyroid Stimulating Hormone (TSH) 1.640 uIu/ml Assessment & Plan benign exam simple ovarian cyst pending CA-125 no intervention at this time will follow as needed
[2017-03-25 15:09] VITALS: BP 112/70; PULSE 63; TEMP 36.8; O2SAT 94
[2017-03-25 16:00] VITALS: O2SAT 94
--- NOTE | 2017-03-25 17:21 | Progress Note ---
Internal Med Progress Note Date of Service: Mar 25, 2017. Provider Documentation: SUBJECTIVE: no complain of abdominal pain or discomfort had small amount of loose bowel movement earlier today no nausea /vomiting no complain of abdominal pain no fever or chills OBJECTIVE: Vital Signs-as noted below Exam: General-elderly female ,no sign of distress Eyes-sclera non icteric, PERRLA/EOMI ENT-moist oral mucosa Neck-no thyromegaly , trachea midline Lungs-clear to auscultate, no wheeze or rales Heart-regular S1/S2 , no JVD , no lower ext edema Abdomen-soft, non tender, no organomegaly , bowel sound active Extremities-no rash or deformity Neuro-AAO x3, no focal neurological deficit Lab data as noted below. ASSESSMENT & PLAN: C diff colitis : presented with abdominal pain , nausea , vomiting , diarrhea CT abdomen /pelvis -non specific colitis appreciate input form GI team Stool C diff + ve toxin assay no recent antibiotic tx , denies of sick contact pt started on PO Vancomycin clinically improved normal white count , vital will need 10 days of tx left side ovarian Cyst : incidental finding in CT abdomen /pelvis pelvic USG -unable to visualize ovaries due to overlying gas on abdomen scan pt refused transvaginal USG sheriff sergeant consulted -appreciate input benign finding , no further testing indicated pt can follow up with [facility] as out pt as needed FULL CODE DVT PROPHYLAXIS sub q heparin DISPOSITION expected to be discharged home in tomorrow Vital Signs: Date Time Temp Pulse Resp B/P (MAP) Pulse Ox O2 Delivery O2 Flow Rate FiO2 03/26/17 08:29 36.8 62 16 93 Room Air 03/26/17 07:47 36.8 62 16 129/81 (97) 93 Room Air 03/25/17 23:40 36.4 69 18 146/86 (106) 95 Room Air Lab Results: Results Past 24 Hours Test 03/26/17 06:40 Range/Units Sodium Level 140 136-145 mmol/L Potassium Level 3.5 3.5-5.1 mmol/L Chloride Level 109 98-107 mmol/L Carbon Dioxide Level 27 21-32 mmol/L Anion Gap 4.0 3-11 mmol/L Blood Urea Nitrogen 10 7-18 mg/dl Creatinine 0.76 0.60-1.20 mg/dl Est Creatinine Clear Calc Drug Dose 51.8 ml/min Estimated GFR () 88.3 Estimated GFR (Non- 76.2 BUN/Creatinine Ratio 13.5 10-20 Random Glucose 106 70-99 mg/dl Calcium Level 9.6 8.5-10.1 mg/dl
[2017-03-25] MEDS ORDERED: ALUM HYDROX/MAG TRISILICATE CHEW PO PRN (18:45)
[2017-03-25] MEDS ORDERED: LORAZEPAM 0.5 MG TAB PO PRN (18:45)
[2017-03-25] MEDS: LATANOPROST 0.005% OP SOLN 2.5 ML BTL OPB SCH (20:21)
[2017-03-25 23:40] VITALS: BP 146/86; PULSE 69; TEMP 36.4; O2SAT 95
[2017-03-26] MEDS: VANCOMYCIN HCL 125 MG/2.5ML SOLN PO SCH (05:57)
[2017-03-26] MEDS: RASPBERRY SYRUP 5 ML UDP PO SCH (05:57)
[2017-03-26 07:32] LABS: CALCIUM 9.6 mg/dl (8.5-10.1); CREATININE 0.76 mg/dl (0.60-1.20); POTASSIUM 3.5 mmol/L (3.5-5.1)
[2017-03-26 07:47] VITALS: BP 129/81; PULSE 62; TEMP 36.8; O2SAT 93
[2017-03-26] MEDS: PANTOprazole SOD 40 MG TAB PO SCH (08:14)
[2017-03-26] MEDS: LISINOPRIL 20 MG TAB PO SCH (08:14)
[2017-03-26] MEDS: ASPIRIN 81 MG ECTAB PO SCH (08:14)
[2017-03-26 08:29] VITALS: BP 129/81; PULSE 62; TEMP 36.8; O2SAT 93
[2017-03-26] MEDS ORDERED: VANC1SUS PO (08:41)
--- NOTE | 2017-03-26 08:50 | Discharge Instructions ---
Discharge Instructions Date of Service Mar 26, 2017. Admission Reason for Admission: Colitis Discharge Discharge Diagnosis / Problem: C DIFF COLITIS Discharge Goals Goal(s): Increase independence, Improve disease control, Diagnostic testing, Therapeutic intervention Activity Recommendations Activity Limitations: resume your previous activity . Instructions / Follow-Up Instructions / Follow-Up FOLLOW UP WITH FAMILY PHYSICIAN IN A WEEK , PLEASE CALL OFFICE FOR APPOINTMENT you have infection /gastroenteritis with C Difficile-this is a very contagious bacterial illness that can be spread through direct contact and eating while not washing hands causing swallowing of the bacterial cyst PLEASE WASH HANDS THOROUGHLY WITH SOAP AND WATER EVERY TIME YOU USE THE REST ROOM AND PRIOR TO EATING NEED TO USE SOAP AND WATER ONLY -ALCOHOL HAND PRIMER INSERTING MACHINE ADJUSTER ARE NOT EFFECTIVE CAN CLEAN SURFACES /COUNTER TOP /SINKS WITH CLORAX WIPE YOU CAN BE CONTAGIOUS UP TO 4-5 DAYS AFTER FINISHING THE ANTIBIOTIC CONTINUE HAND WASHING /CONTACT ISOLATION TILL THEN PLEASE HAVE PERSONAL ITEMS -DRINKING GLASS ,PLATES , TOWELS SEPARATE ALL HOUSE HOLD MEMBERS SHOULD FOLLOW SAME HAND WASH WITH SOAPS AND WATER SPECIALLY PRIOR TO MEALS PLEASE NOTIFY YOUR FAMILY PHYSICIAN IF YOU START TO HAVE DIARRHEA /FEVER / CHILLS /ABDOMINAL PAIN -SIGN OF RECURRENT INFECTION PLEASE TAKE OVER THE COUNTER PROBIOTICS /LACTOBACILLUS SUPPLEMENT ALMOST FOR 2 WEEKS Current Hospital Diet Patient's current hospital diet: Regular Diet Discharge Diet Recommended Diet: Low Fiber Diet (FOR 5-7 DAYS ) Pending Studies Studies pending at discharge: no Medical Emergencies . Who to Call and When: Medical Emergencies: If at any time you feel your situation is an emergency, please call 911 immediately. . Non-Emergent Contact Non-Emergency issues call your: Primary Care Provider . . "Provider Documentation" section prepared by Charity Duran. . VTE Core Measure Inpt VTE Proph given/why not?: Brendan De La Cruz, SCD's
[2017-03-26] MEDS ORDERED: LCTX PO (08:51)
[2017-03-26] MEDS ORDERED: METR-163 PO (09:39)
--- NOTE | 2017-03-26 10:11 | Discharge Summary ---
Discharge Summary Date of Service Mar 26, 2017. Discharge Summary Admission Date: Mar 24, 2017 at 01:18 Discharge Date: Mar 26, 2017 Discharge Disposition: Home Principal Diagnosis: C DIFF COLITIS Procedures: CT ABDOMEN /PELVIS PELVIS USG Consultations: [facility]CHNICIAN Medication Reconciliation New Medications: Lactobacillus Acidophilus (Lactinex) Tab 1 TAB PO TID for 14 Days, TAB OVER THE COUNTER Metronidazole (Flagyl) 500 Mg Tab 500 MG PO TID for 10 Days, #30 TAB Continued Medications: Aspirin (Aspirin Ec) 81 Mg Tab 81 MG PO DAILY Latanoprost (Latanoprost) 37 Drops/2.5 Ml Soln 1 DROP OPB HS Lisinopril (Zestril) 30 Mg Tab 30 MG PO DAILY, TAB Omeprazole (Prilosec) 20 Mg Capcr 20 MG PO DAILY, CAP Turmeric (Curcuma Longa) (Turmeric) 500 Mg Tab 500 MG PO QAM Admission Information HPI (per Admitting provider): This is a 76 year old F on home medications of aspirin, lisinopril, prilosec, latanoprost only with abdominal pain primarily of the left side which have been going on for several days. Patient reports also constipation for weeks with poor oral intake as per patient and her family.Current symptoms also associated with nausea and vomiting. Patient has history of colitis in the past. Physical Exam (per Admitting): General Appearance: + mild distress (from abdominal pain) Head: normocephalic, atraumatic Eyes: normal inspection, EOMI, sclerae normal ENT: normal ENT inspection, hearing grossly normal, pharynx normal Neck: supple, no JVD, trachea midline Respiratory/Chest: chest non-tender, lungs clear, normal breath sounds, no respiratory distress, no accessory muscle use Cardiovascular: regular rate, rhythm, no edema, no JVD Abdomen/GI: normal bowel sounds, soft, + pertinent finding (left sided abominal tenderness on palpation) Extremities/Musculoskelatal: no calf tenderness, no pedal edema, non-tender Neurologic/Psych: alert, oriented x 3 Hospital Course Exam: General-elderly female ,no sign of distress Eyes-sclera non icteric, PERRLA/EOMI ENT-moist oral mucosa Neck-no thyromegaly , trachea midline Lungs-clear to auscultate, no wheeze or rales Heart-regular S1/S2 , no JVD , no lower ext edema Abdomen-soft, non tender, no organomegaly , bowel sound active Extremities-no rash or deformity Neuro-AAO x3, no focal neurological deficit Lab data as noted below. Date Time Temp Pulse Resp B/P (MAP) Pulse Ox O2 Delivery O2 Flow Rate FiO2 03/26/17 08:29 36.8 62 16 93 Room Air 03/26/17 07:47 36.8 62 16 129/81 (97) 93 Room Air 03/25/17 23:40 36.4 69 18 146/86 (106) 95 Room Air ASSESSMENT & PLAN: C diff colitis : presented with abdominal pain , nausea , vomiting , diarrhea CT abdomen /pelvis -non specific colitis appreciate input form GI team Stool C diff + ve toxin assay no recent antibiotic tx , denies of sick contact pt started on PO Vancomycin clinically improved normal white count , vital will need 10 days of tx left side ovarian Cyst : incidental finding in CT abdomen /pelvis pelvic USG -unable to visualize ovaries due to overlying gas on abdomen scan pt refused transvaginal USG surveillance systems engineer consulted -appreciate input benign finding , no further testing indicated pt can follow up with Transportation Operations Manager as out pt as needed FULL CODE DVT PROPHYLAXIS sub q heparin DISPOSITION stable to be discharged home in today Total time spent on discharge = 40 mins This includes examination of the patient, discharge planning, medication reconciliation, and communication with other providers. Discharge Instructions Discharge Instructions Date of Service Mar 26, 2017. Admission Reason for Admission: Colitis Discharge Discharge Diagnosis / Problem: C DIFF COLITIS Discharge Goals Goal(s): Increase independence, Improve disease control, Diagnostic testing, Therapeutic intervention Activity Recommendations Activity Limitations: resume your previous activity . Instructions / Follow-Up Instructions / Follow-Up FOLLOW UP WITH FAMILY PHYSICIAN IN A WEEK , PLEASE CALL OFFICE FOR APPOINTMENT you have infection /gastroenteritis with C Difficile-this is a very contagious bacterial illness that can be spread through direct contact and eating while not washing hands causing swallowing of the bacterial cyst PLEASE WASH HANDS THOROUGHLY WITH SOAP AND WATER EVERY TIME YOU USE THE REST ROOM AND PRIOR TO EATING NEED TO USE SOAP AND WATER ONLY -ALCOHOL HAND CORPORATE SALES MANAGER ARE NOT EFFECTIVE CAN CLEAN SURFACES /COUNTER TOP /SINKS WITH CLORAX WIPE YOU CAN BE CONTAGIOUS UP TO 4-5 DAYS AFTER FINISHING THE ANTIBIOTIC CONTINUE HAND WASHING /CONTACT ISOLATION TILL THEN PLEASE HAVE PERSONAL ITEMS -DRINKING GLASS ,PLATES , TOWELS SEPARATE ALL HOUSE HOLD MEMBERS SHOULD FOLLOW SAME HAND WASH WITH SOAPS AND WATER SPECIALLY PRIOR TO MEALS PLEASE NOTIFY YOUR FAMILY PHYSICIAN IF YOU START TO HAVE DIARRHEA /FEVER / CHILLS /ABDOMINAL PAIN -SIGN OF RECURRENT INFECTION PLEASE TAKE OVER THE COUNTER PROBIOTICS /LACTOBACILLUS SUPPLEMENT ALMOST FOR 2 WEEKS Current Hospital Diet Patient's current hospital diet: Regular Diet Discharge Diet Recommended Diet: Low Fiber Diet (FOR 5-7 DAYS ) Pending Studies Studies pending at discharge: no Medical Emergencies . Who to Call and When: Medical Emergencies: If at any time you feel your situation is an emergency, please call 911 immediately. . Non-Emergent Contact Non-Emergency issues call your: Primary Care Provider . . "Provider Documentation" section prepared by Charity Duran. . VTE Core Measure Inpt VTE Proph given/why not?: Brendan De La Cruz, SCD's
== END 2017-03-26 10:11 | disposition home or self-care (01) | DRG 373 ==
LOC: C.EDB 21:43 → C.4E 03-24 01:18 → ENRESERV 03-24 01:30
PROVIDERS: ADMIT Hospitalist; ATTEND Hospitalist
DX: A04.72 Enterocolitis due to Clostridium difficile, not specified as recurrent (principal); I10 Essential (primary) hypertension; N83.202 Unspecified ovarian cyst, left side; K57.90 Diverticulosis of intestine, part unspecified, without perforation or abscess without bleeding; Z79.82 Long term (current) use of aspirin

== ENCOUNTER → 2017-04-14 | Outpatient (CLI) | payer OTHER ==
[~2017-04-14] MED LIST changes: -CHOL100010 PO; -LATA0.009 OPB; -ROSU10TA35 PO; +XLTOPS OPB
--- NOTE | 2017-04-14 10:23 | DIAGNOSTIC IMAGING REPORT ---
FLUOROSCOPICALLY GUIDED LEFT HIP STEROID AND ANESTHETIC INJECTION CLINICAL HISTORY: Left hip pain. Degenerative arthritis. COMPARISON STUDY: 09/21/2016 FLUOROSCOPY TIME: 21 seconds. NUMBER OF FLUOROSCOPIC IMAGES: 1 FINDINGS: A timeout was performed. The risks the procedure were explained the patient informed consent was obtained. The patient was prepped and draped in sterile fashion. The skin was anesthetized 1% lidocaine. 21 seconds of fluoroscopic time was utilized. Under fluoroscopic guidance, a spinal needle was introduced into the joint space. Intra-articular location was documented via the injection of Optiray 300. 2 cc of betamethasone and 8 cc of 0.5% Bupivacaine were then injected intra-articularly. There were no immediate complications. IMPRESSION: Successful left hip steroid and anesthetic injection. Electronically signed by: Alec Obregon M.D. 04/14/2017 10:22 AM Dictated Date/Time: 04/14/2017 10:20 AM
== END | disposition home or self-care (01) ==
LOC: C.RADBC 09:30
PROVIDERS: ATTEND Orthopaedic Surgery Sports Medicine
DX: M16.12 Unilateral primary osteoarthritis, left hip (principal)

== ENCOUNTER → 2017-07-16 | Outpatient (CLI) | payer OTHER ==
--- NOTE | 2017-07-16 12:04 | DIAGNOSTIC IMAGING REPORT ---
FLUOROSCOPICALLY GUIDED INTRA-ARTICULAR LEFT HIP STEROID INJECTION CLINICAL HISTORY: L HIP ARTHRITIS FLUOROSCOPY TIME: 10 seconds. PROCEDURE: The procedure, risks and benefits were discussed with the patient and informed written consent was obtained. The procedure was performed by Dr. Garcia following a timeout. Fluoroscopy demonstrated severe osteoarthritis of the left hip. Skin overlying the left hip was prepped and draped in sterile fashion and local anesthesia was achieved with 1% lidocaine. Under intermittent fluoroscopic guidance, a 3 1/2 inch 22-gauge needle was directed into left hip joint. Positioning within the joint space was confirmed with injection of 1 cc of Optiray 300. At this time, a mixture of 2 cc of Celestone and 8 cc of 0.5% Marcaine was injected into the left hip joint space. No immediate complications were evident. IMPRESSION: Fluoroscopically guided left hip intra-articular injection of 2 cc of Celestone and 8 cc of 0.5% Marcaine. Electronically signed by: Enrique Garcia M.D. 07/16/2017 12:03 PM Dictated Date/Time: 07/16/2017 12:01 PM
== END | disposition home or self-care (01) ==
LOC: C.RADBC 10:41
PROVIDERS: ATTEND Orthopaedic Surgery Sports Medicine
DX: M16.12 Unilateral primary osteoarthritis, left hip (principal)

== ENCOUNTER 2017-10-18 13:22 | Emergency (ER) | payer OTHER ==
[~2017-10-18] VITALS: Ht 157.5 cm; Wt 60.0 kg
[~2017-10-18 13:22] MED LIST changes: +LISI-863 PO; -LISI1TAB3 PO
[2017-10-18 13:27] VITALS: TEMP 36.4; Ht 157.5 cm; Wt 60.0 kg
[2017-10-18] MEDS ORDERED: SODIUM CHLORIDE 0.9% 500ML 500 ML IV STA (13:43)
--- NOTE | 2017-10-18 14:05 | EMERGENCY ROOM VISIT NOTE ---
History Report prepared by Elaina: Gallo Caldera Under the Supervision of: Dr. Franck Mortensen M.D. First contact with patient: 13:33 Chief Complaint: CONSTIPATION Stated Complaint: PAIN, CANT GO TO BATHROOM History of Present Illness The patient is a 76 year old female who presents to the Emergency Room with complaints of abdominal pain and constipation that began yesterday. She states that her last bowel movement was yesterday, but states that it did not help to alleviate any of her pain. The patient also reports that she feels nauseous and did vomit today while trying to have a bowel movement. The daughter also stated that they changed her diet with her PCP. The patient also notes that she has a history of an small bowel obstruction and colitis, with the last small bowel obstruction occurring about 6 months ago. The patient denies burning with urination, fevers, chills, congestion, and diarrhea. The patient also denies taking any pain killers regularly. Source of History: patient, family Onset: yesterday Position: abdomen Quality: other (pain, constipation ) Associated Symptoms: + nausea, + vomiting, No fevers, No chills, No diarrhea , No urinary symptoms Review of Systems See HPI for pertinent positives and negatives. A total of ten systems were reviewed and were otherwise negative. Past Medical & Surgical Medical Problems: (1) Colitis (2) Diverticulosis (3) Hypertension Surgical Problems: (1) S/P hernia repair Family History Hypertension Social History Smoking Status: Never Smoker Alcohol Use: none Drug Use: none Marital Status: Housing Status: lives with significant other Occupation Status: retired Current/Historical Medications Scheduled Aspirin (Aspirin Ec), 81 MG PO QAM Docusate Sodium (Colace), 1 CAP PO BID Ibuprofen (Advil), 200 MG PO UD Latanoprost (Latanoprost), 1 DROP OPB HS Lisinopril (Zestril), 30 MG PO QAM Omeprazole (Prilosec), 20 MG PO QAM Turmeric (Curcuma Longa) (Turmeric), 500 MG PO QAM Scheduled PRN Alprazolam (Alprazolam), 0.25 MG PO DAILY PRN for Pain Allergies Coded Allergies: Statins (Verified Adverse Reaction, Severe, joint pain, 10/18/17) Promethazine (Verified Adverse Reaction, Intermediate, GI SYMPTOMS, 10/18/17 ) Restlessness,Agitation,Dyskinetic movements,confusion and Nausea Physical Exam Vital Signs Date Time Temp Pulse Resp B/P (MAP) Pulse Ox O2 Delivery O2 Flow Rate FiO2 10/18/17 18:04 79 20 152/68 94 10/18/17 15:08 81 20 149/100 93 Room Air 10/18/17 13:57 89 10/18/17 13:27 36.4 87 18 142/94 96 Room Air Physical Exam GENERAL: Awake, alert, uncomfortable-appearing, in no distress HENT: Normocephalic, atraumatic. Oropharynx unremarkable. Mucous membranes are dry. EYES: Normal conjunctiva. Sclera non-icteric. NECK: Supple. No nuchal rigidity. FROM. No JVD. RESPIRATORY: Clear to auscultation. CARDIAC: Regular rate, normal rhythm. Extremities warm and well perfused. Pulses equal. ABDOMEN: Soft, non-distended. Mild left lower quadrant tenderness to palpation. No rebound or guarding. No masses. RECTAL: Deferred. MUSCULOSKELETAL: Chest examination reveals no tenderness. The back is symmetrical on inspection without obvious abnormality. There is no CVA tenderness to palpation. No joint edema. LOWER EXTREMITIES: Calves are equal size bilaterally and non-tender. No edema. No discoloration. NEURO: Normal sensorium. No sensory or motor deficits noted. SKIN: No rash or jaundice noted. Medical Decision & Procedures ER Provider Diagnostic Interpretation: Radiology results as stated below per my review and radiologist interpretation: ABD/PELVIS IV CONTRAST ONLY CLINICAL HISTORY: 76 years-old Female presenting with abd pain, constipation, h/o obstruction. TECHNIQUE: Multidetector CT of the abdomen and pelvis was performed after the administration of intravenous contrast. IV contrast: 93 mL of Optiray 320. A dose lowering technique was used consistent with the principles of ALARA (as low as reasonably achievable). COMPARISON: 03/23/2017. CT DOSE (mGy.cm): The estimated cumulative dose is 382.74 mGycm. FINDINGS: Curtain Inspector topogram: Severe degenerative changes of the spine and left hip. Lung bases: Chronic volume and loss consolidation with bronchiectasis in the posterior basal left lower lobe. Additional less extensive chronic changes noted in the right lower lobe. No superimposed infiltrate. Normal heart size. Coronary artery calcification. No pericardial or pleural effusion. Liver: Normal morphology. No liver lesion. Patent hepatic vasculature. Biliary: No intrahepatic or extrahepatic biliary ductal dilatation. Subcentimeter polyp may be present at the gallbladder fundus (series 3 image 128). Pancreas: Normal. Mild prominence of the pancreatic duct grossly unchanged. Spleen: Normal. Adrenal glands: Normal. Kidneys and ureters: Cortical thinning along the anterior aspect of the lower pole of the left kidney may indicate reflux nephropathy or prior infarct, infection, or trauma. Right kidney normal. No hydronephrosis. No nephrolithiasis. Normal ureters. Bladder: The configuration of the bladder suggests ligamentous laxity. Bladder otherwise normal. Pelvic organs: Apparent thickening of the endometrium (series 3 image 302). Few calcified foci in the uterus may represent underlying degenerated fibroids. Stable simple 3 cm left adnexal cyst. Right ovary not clearly visualized. Bowel: Diverticulosis of the sigmoid colon with a moderate stool burden in the sigmoid colon and rectum. Mild wall thickening diffusely in the sigmoid colon and rectum with more focal pronounced wall thickening in the mid to distal portion of the sigmoid colon (series 3 image 251). In the short segment measuring approximately 3-5 cm wall thickening measures up to 11 mm. This is an area affected by diverticulosis. No significant pericolonic fat stranding is apparent. The more proximal colon contains fluid without evidence of wall thickening or surrounding inflammatory change. The appendix is normal. No bowel obstruction. Small hiatal hernia. Peritoneal cavity: Trace free fluid in the pelvis. No intraperitoneal gas. Lymph nodes: No enlarged lymph nodes in the abdomen or pelvis. Vasculature: Atherosclerosis of the normal caliber abdominal aorta. IVC patent. Abdominal wall: Fat-containing right inguinal hernia. Musculoskeletal: Advanced degenerative changes of the spine and left hip. IMPRESSION: 1. Focal significant wall thickening in the mid to distal sigmoid colon. Even the presence of associated diverticulosis, this may represent circular muscle hyperplasia/chronic diverticular disease. No convincing evidence of acute diverticulitis. However, underlying neoplasm cannot be excluded. Correlate with most recent sigmoidoscopy/colonoscopy results and consider gastroenterology consultation. 2. Possible thickening of the endometrium, which would be unexpected for a patient of this age. Consider gynecologic consultation on a nonurgent basis. 3. Stable simple appearing left ovarian cyst. This can be followed on subsequent examinations. 4. Possible subcentimeter gallbladder polyp. 5. Chronic bibasilar changes in the lungs could suggest chronic aspiration or other chronic and/or fibrotic lung disease. No superimposed infiltrate to suggest aspiration pneumonia. Electronically signed by: Luciano Lee M.D. 10/18/2017 4:09 PM Dictated Date/Time: 10/18/2017 3:56 PM Laboratory Results 10/18/17 14:10 Red Blood Count 5.19, Mean Corpuscular Volume 87.1, Mean Corpuscular Hemoglobin 29.5, Mean Corpuscular Hemoglobin Concent 33.8, Mean Platelet Volume 10.7, Neutrophils (%) (Auto) 81.3, Lymphocytes (%) (Auto) 10.3, Monocytes (%) (Auto) 7.7, Eosinophils (%) (Auto) 0.3, Basophils (%) (Auto) 0.1, Neutrophils # (Auto) 12.13, Lymphocytes # (Auto) 1.53, Monocytes # (Auto) 1.15, Eosinophils # (Auto) 0.05, Basophils # (Auto) 0.02 10/18/17 14:10 Test 10/18/17 14:05 10/18/17 14:10 10/18/17 15:08 Lactic Acid Level 1.1 mmol/L (0.4-2.0) White Blood Count 14.92 K/uL (4.8-10.8) Red Blood Count 5.19 M/uL (4.2-5.4) Hemoglobin 15.3 g/dL (12.0-16.0) Hematocrit 45.2 % (37-47) Mean Corpuscular Volume 87.1 fL (80-100) Mean Corpuscular Hemoglobin 29.5 pg (25-34) Mean Corpuscular Hemoglobin Concent 33.8 g/dl (32-36) Platelet Count 245 K/uL (130-400) Mean Platelet Volume 10.7 fL (7.4-10.4) Neutrophils (%) (Auto) 81.3 % Lymphocytes (%) (Auto) 10.3 % Monocytes (%) (Auto) 7.7 % Eosinophils (%) (Auto) 0.3 % Basophils (%) (Auto) 0.1 % Neutrophils # (Auto) 12.13 K/uL (1.4-6.5) Lymphocytes # (Auto) 1.53 K/uL (1.2-3.4) Monocytes # (Auto) 1.15 K/uL (0.11-0.59) Eosinophils # (Auto) 0.05 K/uL (0-0.5) Basophils # (Auto) 0.02 K/uL (0-0.2) RDW Standard Deviation 44.8 fL (36.4-46.3) RDW Coefficient of Variation 14.2 % (11.5-14.5) Immature Granulocyte % (Auto) 0.3 % Immature Granulocyte # (Auto) 0.04 K/uL (0.00-0.02) Anion Gap 9.0 mmol/L (3-11) Est Creatinine Clear Calc Drug Dose 53.3 ml/min Estimated GFR () 95.9 Estimated GFR (Non- 82.7 BUN/Creatinine Ratio 31.3 (10-20) Calcium Level 10.1 mg/dl (8.5-10.1) Phosphorus Level 3.1 mg/dl (2.5-4.9) Magnesium Level mg/dl (1.8-2.4) Total Bilirubin 0.6 mg/dl (0.2-1) Direct Bilirubin mg/dl (0-0.2) Aspartate Amino Transf (AST/SGOT) U/L (15-37) Alanine Aminotransferase (ALT/SGPT) 26 U/L (12-78) Alkaline Phosphatase 73 U/L (45-117) Total Protein 7.0 gm/dl (6.4-8.2) Albumin 3.8 gm/dl (3.4-5.0) Lipase 96 U/L (73-393) Urine Color YELLOW Urine Appearance CLOUDY (CLEAR) Urine pH 7.5 (4.5-7.5) Urine Specific [place] 1.010 (1.000-1.030) Urine Protein NEG (NEG) Urine Glucose (UA) NEG (NEG) Urine Ketones NEG (NEG) Urine Occult Blood NEG (NEG) Urine Nitrite NEG (NEG) Urine Bilirubin NEG (NEG) Urine Urobilinogen NEG (NEG) Urine Leukocyte Esterase NEG (NEG) Urine WBC (Auto) 1-5 /hpf (0-5) Urine RBC (Auto) 0-4 /hpf (0-4) Urine Hyaline Casts (Auto) 0 /lpf (0-5) Urine Epithelial Cells (Auto) 10-20 /lpf (0-5) Urine Bacteria (Auto) NEG (NEG) Laboratory results reviewed by me Medications Administered Medications (Trade) Dose Ordered Sig/See Route Start Time Stop Time Status Last Admin Dose Admin Sodium Chloride 500 ml @ 999 mls/hr Q31M STAT IV 10/18/17 13:43 10/18/17 14:13 DC 10/18/17 14:24 999 MLS/HR Ondansetron HCl (Zofran Inj) 4 mg NOW STAT IV 10/18/17 14:19 10/18/17 14:20 DC 10/18/17 14:23 4 MG Acetaminophen 100 ml @ 400 mls/hr NOW STAT IV 10/18/17 14:19 10/18/17 14:33 DC 10/18/17 14:24 400 MLS/HR Magnesium Citrate (Citrate Of Magnesia Soln) 296 ml NOW STAT PO 10/18/17 17:03 10/18/17 17:04 DC 10/18/17 17:48 296 ML ED Course 1353: The patient was evaluated in room C1B. A complete history and physical exam was performed. 1700: I reevaluated the patient and she is feeling better. Medical Decision I reviewed the patient's past medical history, medications, and the nursing notes as described above. Differential diagnosis: Etiologies such as appendicitis, diverticulitis, PUD, biliary pathology, UTI, pancreatitis, obstruction, mesenteric ischemia, aortic pathology, infections, inflammatory bowel disease, renal colic, as well as others were entertained. The patient is a 76-year-old woman who presents emergency department with dominant pain and constipation per hpi. On arrival the patient is fatigued and uncomfortable but no acute distress, afebrile stable vital signs. On exam the patient has mild left lower quadrant tenderness without peritoneal signs. WBC 14, nonspecific. Lactate within normal limits. Chemistry otherwise distant with mild dehydration with BUN/creatinine> 20. CT demonstrates moderate stool burden throughout the sigmoid and rectum. Otherwise incidental findings, which given the patient's unremarkable colonoscopy per the patient, less likely to be rectal mass. Patient was ordered for enema however prior to administration she had a large bowel movement which gave her significant relief. Thus, we will give the patient magnesium citrate and Fleet enema to take home should she require any additional assistance with her constipation. Plan for PCP follow- up. Findings and plan for follow-up reviewed with patient. Patient agreeable and d/c'd per discharge instructions. Impression Primary Impression: Constipation Scribe Attestation The scribe's documentation has been prepared under my direction and personally reviewed by me in its entirety. I confirm that the note above accurately reflects all work, treatment, procedures, and medical decision making performed by me. Departure Information Dispostion Home / Self-Care Prescriptions Docusate Sodium (COLACE) 100 Mg Cap 1 CAP PO BID for Constipation for 15 Days, #30 CAP Prov: Franck Mortensen M.D. 10/18/17 Referrals Sully Geiger (PCP) Patient Instructions ED Constipation, My [facility] Additional Instructions Please follow up with your primary care physician in the next 1-3 days for re- evaluation and to review the incidental findings on your CT scan. You were found to have constipation. Otherwise, your exam, lab results, and CT scan did not show signs of an emergent condition at this time. Colace as needed for constipation. Magnesium citrate and Fleet enema for additional constipation relief. Drink plenty of fluids to ensure hydration. Return to the emergency department for worsening symptoms as described in the accompanying instructions. CT abdomen/pelvis
[2017-10-18] MEDS ORDERED: ACETAMINOPHEN IV 100 ML IV STA (14:19)
[2017-10-18] MEDS ORDERED: ONDANSETRON INJ 2 MG/ML 2 ML VIAL IV STA (14:19)
[2017-10-18 14:24] LABS: BASO % 0.1 %; BASO ABS # 0.02 K/uL (0-0.2); EOS % 0.3 %; EOS ABS # 0.05 K/uL (0-0.5); HEMATOCRIT 45.2 % (37-47); HEMOGLOBIN 15.3 g/dL (12.0-16.0); IG# 0.04 K/uL (0.00-0.02); LYMPH % 10.3 %; LYMPH ABS # 1.53 K/uL (1.2-3.4); MEAN CELL VOLUME 87.1 fL (80-100); MEAN CORPUSCULAR HEMOGLOBIN 29.5 pg (25-34); MEAN CORPUSCULAR HGB CONC 33.8 g/dl (32-36); MEAN PLATELET VOLUME 10.7 fL (7.4-10.4); MONO % 7.7 %; MONO ABS # 1.15 K/uL (0.11-0.59); NEUT % 81.3 %; NEUT ABS # 12.13 K/uL (1.4-6.5); PLATELET COUNT 245 K/uL (130-400); RED CELL DISTRIBUTION WIDTH CV 14.2 % (11.5-14.5); RED CELL DISTRIBUTION WIDTH SD 44.8 fL (36.4-46.3); WHITE BLOOD COUNT 14.92 K/uL (4.8-10.8)
[2017-10-18 14:52] LABS: ALBUMIN 3.8 gm/dl (3.4-5.0); ALKALINE PHOSPHATASE 73 U/L (45-117); ALT/SGPT 26 U/L (12-78); BLOOD UREA NITROGEN 22 mg/dl (7-18); CALCIUM 10.1 mg/dl (8.5-10.1); CARBON DIOXIDE 26 mmol/L (21-32); CREATININE 0.71 mg/dl (0.60-1.20); GLUCOSE 89 mg/dl (70-99); LIPASE 96 U/L (73-393); PHOSPHORUS 3.1 mg/dl (2.5-4.9); SODIUM 139 mmol/L (136-145)
[2017-10-18] MEDS ORDERED: OPTIRAY 320 IV PRN (15:30)
--- NOTE | 2017-10-18 16:10 | DIAGNOSTIC IMAGING REPORT ---
ABD/PELVIS IV CONTRAST ONLY CLINICAL HISTORY: 76 years-old Female presenting with abd pain, constipation, h/o obstruction. TECHNIQUE: Multidetector CT of the abdomen and pelvis was performed after the administration of intravenous contrast. IV contrast: 93 mL of Optiray 320. A dose lowering technique was used consistent with the principles of ALARA (as low as reasonably achievable). COMPARISON: 03/23/2017. CT DOSE (mGy.cm): The estimated cumulative dose is 382.74 mGycm. FINDINGS: Weblogic Administrator topogram: Severe degenerative changes of the spine and left hip. Lung bases: Chronic volume and loss consolidation with bronchiectasis in the posterior basal left lower lobe. Additional less extensive chronic changes noted in the right lower lobe. No superimposed infiltrate. Normal heart size. Coronary artery calcification. No pericardial or pleural effusion. Liver: Normal morphology. No liver lesion. Patent hepatic vasculature. Biliary: No intrahepatic or extrahepatic biliary ductal dilatation. Subcentimeter polyp may be present at the gallbladder fundus (series 3 image 128). Pancreas: Normal. Mild prominence of the pancreatic duct grossly unchanged. Spleen: Normal. Adrenal glands: Normal. Kidneys and ureters: Cortical thinning along the anterior aspect of the lower pole of the left kidney may indicate reflux nephropathy or prior infarct, infection, or trauma. Right kidney normal. No hydronephrosis. No nephrolithiasis. Normal ureters. Bladder: The configuration of the bladder suggests ligamentous laxity. Bladder otherwise normal. Pelvic organs: Apparent thickening of the endometrium (series 3 image 302). Few calcified foci in the uterus may represent underlying degenerated fibroids. Stable simple 3 cm left adnexal cyst. Right ovary not clearly visualized. Bowel: Diverticulosis of the sigmoid colon with a moderate stool burden in the sigmoid colon and rectum. Mild wall thickening diffusely in the sigmoid colon and rectum with more focal pronounced wall thickening in the mid to distal portion of the sigmoid colon (series 3 image 251). In the short segment measuring approximately 3-5 cm wall thickening measures up to 11 mm. This is an area affected by diverticulosis. No significant pericolonic fat stranding is apparent. The more proximal colon contains fluid without evidence of wall thickening or surrounding inflammatory change. The appendix is normal. No bowel obstruction. Small hiatal hernia. Peritoneal cavity: Trace free fluid in the pelvis. No intraperitoneal gas. Lymph nodes: No enlarged lymph nodes in the abdomen or pelvis. Vasculature: Atherosclerosis of the normal caliber abdominal aorta. IVC patent. Abdominal wall: Fat-containing right inguinal hernia. Musculoskeletal: Advanced degenerative changes of the spine and left hip. IMPRESSION: 1. Focal significant wall thickening in the mid to distal sigmoid colon. Even the presence of associated diverticulosis, this may represent circular muscle hyperplasia/chronic diverticular disease. No convincing evidence of acute diverticulitis. However, underlying neoplasm cannot be excluded. Correlate with most recent sigmoidoscopy/colonoscopy results and consider gastroenterology consultation. 2. Possible thickening of the endometrium, which would be unexpected for a patient of this age. Consider gynecologic consultation on a nonurgent basis. 3. Stable simple appearing left ovarian cyst. This can be followed on subsequent examinations. 4. Possible subcentimeter gallbladder polyp. 5. Chronic bibasilar changes in the lungs could suggest chronic aspiration or other chronic and/or fibrotic lung disease. No superimposed infiltrate to suggest aspiration pneumonia. Electronically signed by: Luciano Lee M.D. 10/18/2017 4:09 PM Dictated Date/Time: 10/18/2017 3:56 PM
[2017-10-18] MEDS ORDERED: METOCLOPRAMIDE HCL INJ 5 MG/ML 2 ML VIAL IV STA (16:43)
[2017-10-18] MEDS ORDERED: SOD PHOSPHATE/SOD BIPHOSPHATE ENEMA 132 ML BTL PR STA (16:43)
[2017-10-18] MEDS ORDERED: ALPR0.254 PO (16:46)
[2017-10-18] MEDS ORDERED: IBUP-1050 PO (16:48)
[2017-10-18] MEDS ORDERED: MAGNESIUM CITRATE 296 ML/BTL PO STA (17:03)
[2017-10-18] MEDS ORDERED: DOCU-94 PO (17:13)
[2017-10-18 18:04] VITALS: BP 152/68; PULSE 79; O2SAT 94
== END 2017-10-18 18:05 | disposition home or self-care (01) ==
LOC: C.EDB 13:23 → C.EDC 18:05
DX: K59.00 Constipation, unspecified (principal); E86.0 Dehydration; R78.89 Finding of other specified substances, not normally found in blood; R11.2 Nausea with vomiting, unspecified; I10 Essential (primary) hypertension; Z87.19 Personal history of other diseases of the digestive system; Z79.82 Long term (current) use of aspirin; Z79.899 Other long term (current) drug therapy; Z88.8 Allergy status to other drugs, medicaments and biological substances

== ENCOUNTER 2018-05-27 04:52 | Inpatient (IN) ==
--- NOTE | 2018-04-27 09:09 | PAT Medication Instructions ---
Medication Instructions Date of Service April 27, 2018 Home Medications latanoprost 1 drp OPB HS omeprazole 20 mg PO QAM amlodipine 2.5 mg PO QAM aspirin [Aspir-81] 81 mg PO QAM lisinopril 30 mg PO HS Take morning of surgery With a small sip of water, OTHERWISE NOTHING TO EAT OR DRINK AFTER MIDNIGHT: omeprazole 20 mg PO QAM amlodipine 2.5 mg PO QAM aspirin [Aspir-81] 81 mg PO QAM Take evening before surgery latanoprost 1 drp OPB HS lisinopril 30 mg PO HS Other Notes If you have any questions please call us at [phone] or [phone] or [phone] or [phone]
--- NOTE | 2018-04-27 11:38 | Anesthesiology Consultation ---
Date of Service April 27, 2018 Assessment & Plan (1) Encounter for pre-operative examination: Chart Review Chart Review: Acceptable Risk for Surgery and Patient seen in Pre Admission Testing Teaching & Discussion Pre-Anesthesia Teaching/Discussion Notes: Instructed NPO after midnight before surgery,except medications with 15 cc of water. Medication instructions provided according to the PAT guidelines. History Surgery Operation Date: 05/27/18 07:00 Proposed Procedures p Left Anterior Total Hip Arthroplasty - Bassem Joyner, Height/Weight Height: 5 ft 2 in Weight: 62.3 kg Allergies Allergy/AdvReac Type Severity Reaction Status Date / Time Uwbmibt-Ubn-Ssz Reductase AdvReac Severe joint pain Verified 04/20/18 08:35 Inhibitor promethazine AdvReac Intermediate GI SYMPTOMS Verified 04/20/18 08:35 Medications Home Medications Medication Instructions Recorded Confirmed Last Taken latanoprost 1 drp OPB 12/09/17 04/20/18 Unknown omeprazole 20 mg PO QA 12/09/17 04/20/18 Unknown amlodipine 2.5 mg PO QA 04/20/18 04/20/18 Unknown aspirin [Aspir-81] 81 mg PO QA 04/20/18 04/20/18 Unknown lisinopril 30 mg PO 04/20/18 04/20/18 Unknown Past Medical History Medical History Stroke 5+ YEARS AGO= NO RESIDUAL EFFECTS Hypertension Colitis Diverticulosis GERD (gastroesophageal reflux disease) Urinary incontinence NIGHTTIME ISSUE Past Family History Family History Mother , Mother age 44 of liver cancer. Liver cancer Father , Father age 66 of respiratory failure/COPD COPD (chronic obstructive pulmonary disease) Other No pertinent family history Past Surgical History Surgical History S/P hernia repair History of bilateral cataract extraction History of colonoscopy History of total left knee replacement Past Anesthesia History No Family Hx of Anesthesia Complications and Other With prior knee surgery, patient had PONV, diarrhea (x few days) and "acted crazy" after surgery- no issues with other surgeries. History of PONV Yes Motion Sickness Screening History of Motion Sickness: Yes (OCCASIONAL) Social History Smoking Status: Never smoker Do You Dip or Chew Tobacco: No Hx Alcohol Use: No Hx Substance Use: No substance use type: does not use Exercise / Class Metabolic Activity II 4-5 Yardwork/Stairs/Walk up hill Review of Systems Patient denies chest pain, shortness of breath, dyspnea on exertion, cough, wheezing, palpitations. Physical Exam Vital Signs VITALS BP 121/80 P 76 TEMP 97.5 SP02 94%RA RESP 18 PHYSICAL Full neck and c-spine range of motion. Full TMJ range of motion. TMD 2.5 finger breaths Mallampati Score 3 Dentition: intact Lungs: clear throughout to auscultation Cardiac: regular rate and rhythm, no murmurs noted Spine: normal Carotid arteries: negative bruit Extremities: no edema Testing Electrocardiogram Date: 04/27/18 Findings: + NSR @ (72) NS TWA. Chest X-Ray Date: 04/27/18 Findings: + NAD Echocardiogram Date: 03/28/13 EF 60-65%. No RWMA. Mild MR. Moderate TR. Moderate cLVH. Laboratory Results 04/27/18 12:13 04/27/18 12:13 Blood Type O Positive 04/27/18 12:13 Antibody Screen NEGATIVE 04/27/18 12:13 PT 10.0 Seconds (9.0-12.0) 04/27/18 12:13 INR 1.0 (0.9-1.1) 04/27/18 12:13 APTT 24.5 Seconds (21.0-31.0) 04/27/18 12:13
--- NOTE | 2018-04-27 12:59 | XRay Report ---
XR chest Pre-admission PA/Lat CLINICAL HISTORY: pat preoperative COMPARISON STUDY: 01/08/2018 FINDINGS: The bones soft tissues and hemidiaphragms are normal. The cardiomediastinal silhouette is n ormal. The lungs are clear. The pulmonary vasculature is normal. IMPRESSION: Negative chest. The above report was generated using voice recognition software. It may contain grammatical, syntax or spelling errors. Electronically signed by: Eric Tarango M.D. 04/27/2018 12:58 PM
[2018-04-27 13:17] LABS: Basophils # (auto) 0.03 K/uL (0-0.2); Basophils % (auto) 0.3 %; Eosinophils # (auto) 0.05 K/uL (0-0.5); Eosinophils % (auto) 0.6 %; Hematocrit (blood only) 42.7 % (37-47); Hemoglobin 14.4 g/dL (12.0-16.0); Immature Granulocytes # (auto) 0.02 K/uL (0.00-0.02); Immature Granulocytes % (auto) 0.2 %; Lymphocytes # (auto) 1.29 K/uL (1.2-3.4); Lymphocytes % (auto) 14.5 %; Mean Corpuscular Hgb Conc 33.7 g/dL (32-36); Mean Corpuscular Volume 87.7 fL (80-100); Mean Platelet Volume 10.8 fL (7.4-10.4); Monocytes # (auto) 0.22 K/uL (0.11-0.59); Monocytes % (auto) 2.5 %; Neutrophils # (auto) 7.28 K/uL (1.4-6.5); Neutrophils % (auto) 81.9 %; Platelet Count 245 K/uL (130-400); RDW Coefficient of Variation 14.2 % (11.5-14.5); RDW Standard Deviation 45.4 fL (36.4-46.3); Red Blood Count 4.87 M/uL (4.2-5.4); White Blood Count 8.89 K/uL (4.8-10.8)
[2018-04-27 13:37] LABS: Partial Thromboplastin Ratio 0.9; Partial Thromboplastin Time 24.5 Seconds (21.0-31.0)
[2018-04-27 13:38] LABS: BUN Creatinine Ratio 19.4 (10-20); Calcium 9.6 mg/dl (8.5-10.1); Creatinine Clr Calc Pharmacy 43.5 ml/min; Est GFR (African American) 67.8; Est GFR (Non-African American) 58.5; Potassium 3.9 mmol/L (3.5-5.1)
--- NOTE | 2018-05-26 20:18 | History & Physical Report ---
Date of Service May 26, 2018 Assessment & Plan (1) Osteoarthritis of left hip: We will proceed with a left anterior total hip arthroplasty. Postoperatively she will be started on aspirin for DVT prophylaxis and kept overnight in the hospital for postop medical management. She plans to use energy physical therapy upon discharge. Present on Admission?: Yes History of Present Illness Chief Complaint: Primary osteoarthritis of the left hip Zo is a pleasant 77-year-old female who is been dealing with chronic increasing left hip and groin pain. She has been treated conservatively for a while. She has had 5 intra-articular hip injections. Unfortunately the injections are no longer helping. Her hip pain is getting worse. X-rays and clinical examination have been diagnostic for primary osteoarthritis of the left hip. After failing extensive conservative treatment, she has elected proceed with a left total hip arthroplasty. Allergies Allergy/AdvReac Type Severity Reaction Status Date / Time promethazine AdvReac Intermediate GI SYMPTOMS Verified 04/20/18 08:35 Cmhtoes-Uvy-Lmk Reductase AdvReac Mild joint pain Verified 05/23/18 10:43 Inhibitor Home Medications Home Medications Medication Instructions Recorded Confirmed Type latanoprost 1 drp OPB HS 12/09/17 04/20/18 History omeprazole 20 mg PO QAM 12/09/17 04/20/18 History amlodipine 2.5 mg PO QAM 04/20/18 04/20/18 History aspirin [Aspir-81] 81 mg PO QAM 04/20/18 04/20/18 History lisinopril 30 mg PO HS 04/20/18 04/20/18 History Past Med/Surg History Medical History Stroke 5+ YEARS AGO= NO RESIDUAL EFFECTS Hypertension Colitis Diverticulosis GERD (gastroesophageal reflux disease) Urinary incontinence NIGHTTIME ISSUE Surgical History S/P hernia repair History of bilateral cataract extraction History of colonoscopy History of total left knee replacement Family History Mother , Mother age 44 of liver cancer. Liver cancer Father , Father age 66 of respiratory failure/COPD COPD (chronic obstructive pulmonary disease) Other No pertinent family history Social History Preferred Language: Kiswahili Communication Ability: Effective Community Development Manager Required: No Beliefs That Will Affect Care: None Current Living Situation: Spouse current occupational status: unemployed Other Information That Helps Us Care for You: Yes (WORRIED ABOUT INCONTINECE ISSUES AT HS) Feels Safe at Home: Yes Smoking Status: Never smoker Hx Alcohol Use: No Hx Substance Use: No Review of Systems All systems reviewed & are unremarkable except as noted in HPI & below Physical Exam Constitutional: WD/WN, vitals as above Eyes: PERRL, conjunctivae normal, anicteric sclerae ENMT: external ear and nose normal, oropharynx normal Neck: trachea midline, no thyromegaly Respiratory: normal respiratory effort Cardiovascular: RRR, no murmur, no edema Gastrointestinal (Abdomen): normal bowel sounds, soft, nontender, no hepatosplenomegaly Musculoskeletal: Physical examination of the left hip reveals decreased range of motion with flexion, internal and external rotation. There is significant groin pain with forced internal rotation of the hip his leg lengths are essentially equal. Psychiatric: A+Ox3, euthymic affect Results & Data Diagnostic Findings Radiographs of the left hip and pelvis demonstrate advanced osteoarthritis with joint space narrowing osteophyte formation and hsgh-hp-vhrd articulation.
[2018-05-27] MEDS ORDERED: TRANEXAMIC ACID 1,000 MG **IV Pre-op IV SCH (06:00)
[2018-05-27] MEDS ORDERED: LR 60ML/HR IV SCH (06:00)
[2018-05-27] MEDS ORDERED: LR 500ML BOLUS, THEN 15ML/HR IV SCH (06:00)
[2018-05-27] MEDS ORDERED: ROPIVACAINE 0.5% HCL/PF 150 MG, BUPIVACAINE 0.5% MPF 30 ML, EPINEPHrine 30MG/30ML (OR U... INFIL SCH (06:00)
[2018-05-27] MEDS ORDERED: CEFAZOLIN 2000MG 2,000 MG/15 ML SYR IV SCH (06:00)
[2018-05-27] MEDS ORDERED: ACETAMINOPHEN 500 MG TAB PO SCH (06:00)
[2018-05-27] MEDS ORDERED: FAMOTIDINE 20 MG TAB PO SCH (06:00)
[2018-05-27] MEDS ORDERED: GABAPENTIN 300 MG PO SCH (06:00)
[2018-05-27] MEDS ORDERED: MIDAZOLAM HCL 1 MG/ML 2ML VIAL ONE (06:19)
[2018-05-27] MEDS ORDERED: BUPIVACAINE 0.5 % 5 MG/1 ML PF 10ML VIAL ONE (06:20)
[2018-05-27] MEDS ORDERED: KETAMINE HCL INJ 50 MG/ML 10 ML VIAL ONE (06:20)
[2018-05-27] MEDS ORDERED: DEXAMETHASONE SOD INJ 4 MG/ML VIAL ONE (06:27)
[2018-05-27] MEDS ORDERED: LIDOCAINE HCL 2% 2 ML VIAL/AMP(20MG/ML) INFIL ONE (06:27)
[2018-05-27] MEDS ORDERED: ONDANSETRON INJ 2 MG/ML 2 ML VIAL ONE (06:27)
[2018-05-27] MEDS ORDERED: PROPOFOL IV EMULSION 10 MG/ML 20 ML VIAL IV ONE (06:27)
[2018-05-27] MEDS ORDERED: GLYCOPYRROLATE 0.2 MG/ML VIAL ONE (06:27)
[2018-05-27] MEDS ORDERED: TRANEXAMIC ACID 1,000 MG **IV Intra-op IV SCH (06:30)
--- NOTE | 2018-05-27 06:50 | History & Physical Bridge Note ---
Date of Service May 27, 2018 History & Physical Bridge Note I have examined the patient, reviewed the History & Physical and in the interval since the performance of the History & Physical I have noted the following changes of clinical significance: no changes noted
[2018-05-27] MEDS ORDERED: fentaNYL citrate 100 MCG/2 ML VIAL IV PRN (06:51)
[2018-05-27] MEDS ORDERED: ONDANSETRON INJ 2 MG/ML 2 ML VIAL IV PRN ×2 (06:51→10:11)
[2018-05-27] MEDS ORDERED: PHENYLEPHRINE 100MCG/ML 5ML SYR IV PRN (06:51)
[2018-05-27] MEDS ORDERED: ePHEDrine sulfate 50 MG/ML AMP IV PRN (06:51)
[2018-05-27] MEDS ORDERED: ATROPINE SULFATE 0.1 MG/ML 10ML SYR IV PRN (06:51)
[2018-05-27] MEDS ORDERED: POVIDONE-IODINE OP SOLN 30 ML BTL ONE (06:58)
[2018-05-27] MEDS ORDERED: ORTHO JOINT ANESTHETIC ONE (06:58)
--- NOTE | 2018-05-27 08:33 | Operative Report ---
Post Operative Report Pre & Post Diagnosis Operation Date: 05/27/18 07:00 Pre-Op Diagnosis: Left Hip Degenerative Joint Disease Post-Op Diagnosis: Left Hip Degenerative Joint Disease Procedure Operation Date: 05/27/18 07:00 Actual Procedures p Left Anterior Total Hip Arthroplasty(Left) - Bassem Joyner DO Surgeon Bassem Joyner DO Manager Psychology Bassem Sanchez PAC Estimated Blood Loss 100 Findings Consistent with Post-Op Diagnosis Specimens Left femoral head Complications none Disposition Disposition: Recovery Room Indications Zo is a pleasant 77-year-old female who presented my office with chronic increasing left hip and groin pain. X-rays and clinical examination were d iagnostic for primary osteoarthritis of the left hip. After failing conservative treatment, she elected to proceed with a left total hip arthroplasty. Description of Procedure Implants used Biomet Taperloc total hip arthroplasty system with a size 5 high offset Taperloc stem, a 48 mm G7 cup with a 25mm screw, an E1 polyethylene liner, a 32 mm cera elliot head with a -6 neck. Patient arrived at the hospital for the above procedure. They were seen in the preoperative holding area and the operative extremity was identified and signed. They were given a spinal anesthetic. They were given a preoperative antibiotic and TXA. They were taken back To the operating room and laid on the table in the supine position. The leg was brought out through a Puristst leg positioner. The hip was then prepped and draped in sterile fashion. A timeout was done and the patient in upper extremities properly identified. An anterior approach was used. Dissection was taken down through the fascia and the tensor muscle belly was retracted laterally and the rectus was retracted medially. The circumflex vessels were identified and ligated. The capsule was then incised and tagged for later repair. The femoral neck was then cut and the femoral head was removed. The acetabulum was exposed. Time was spent doing a complete circumferential labral release. Sequential reaming of the acetabulum up to a size 47 reamer was done. Final reamings were done under fluoroscopy to ensure appropriate version. A Biomet 48 mm G7 cup was then impacted into place. A single 25 mm screw was placed. The E1 polyethylene liner was then snapped into place. Surrounding soft tissues were then injected with 100 cc of an orthopedic pain control cocktail. The proximal femur was then exposed. Sequential broaching up to a size 5 broach was done. Off that broach a size 32 head with a -6 neck was trialed. The hip was reduced and fluoroscopic images showed anatomic alignment of the implants in acceptable length. The broach was removed. The final size 5 high offset Taperloc stem was then impacted into place. A ceramic 32 mm head with a -6 neck was then impacted into place in the hip was reduced. Final fluoroscopic images showed anatomic reduction of the hip. The capsule was then closed with #1 Vicryl suture. A dilute betadyne lavage was then done for 3 minutes. The joint was then irrigated with normal saline solution. The fascia was closed with #1 PDS suture. Skin was closed with 2-0 Vicryl, jimena, and a Eliz VAC dressing. The patient was then transferred to a hospital bed and taken to the post anesthesia care unit in stable condition. They tolerated the procedure well. I attest to the content of the Intraoperative Record and any orders documented therein. Any exceptions are noted below.
--- NOTE | 2018-05-27 09:14 | XRay Report ---
XR hip 1V LT w pelvis CLINICAL HISTORY: Postoperative evaluation. COMPARISON: Left hip radiographs March 28, 2018. FINDINGS: Alignment of the total left hip arthroplasty is anatomic. There is no fracture or unexpect ed radiopaque foreign body. There are drains and skin jimena. IMPRESSION: Expected findings following total left hip arthroplasty. Electronically signed by: Enrique Garcia M.D. 05/27/2018 9:13 AM
--- NOTE | 2018-05-27 09:46 | Anesthesiology Progress Note ---
Date of Service May 27, 2018 Anesthesia Post Procedure Vital Signs Vital Signs: Temp Pulse Pulse Resp BP Pulse Ox 05/27/18 09:35 36.8 C 61 18 109/73 93 05/27/18 09:25 61 19 107/72 93 05/27/18 09:15 65 17 103/74 95 05/27/18 09:05 65 19 117/75 99 05/27/18 08:55 71 10 L 94/68 L 98 05/27/18 08:49 36.3 C L 75 18 92/63 L 97 05/27/18 05:40 36.6 C 75 18 154/100 H 94 Pain Intensity Left Hip: Pain Intensity: 0 Notes Mental Status: alert / awake / arousable Patient Amnestic to Procedure: Yes Nausea / Vomiting: adequately controlled Pain: adequately controlled Airway Patency, RR, SpO2: stable & adequate BP & HR: stable & adequate Neuraxial Anesthesia: was administered and sensory block is resolving Anesthetic Complications: no major complications apparent
[2018-05-27] MEDS ORDERED: HYDROmorphone INJ 0.5 MG/0.5 ML SYR IV PRN (10:11)
[2018-05-27] MEDS ORDERED: NALOXONE HCL 0.4 MG/1 ML VIAL/CARP IV PRN (10:11)
[2018-05-27] MEDS ORDERED: MAGNESIUM HYDROXIDE SUSP 30 ML UDC PO PRN (10:11)
[2018-05-27] MEDS ORDERED: METOCLOPRAMIDE HCL INJ 5 MG/ML 2 ML VIAL IV PRN (10:11)
[2018-05-27] MEDS ORDERED: BISACODYL 10 MG SUPP PR PRN (10:11)
--- NOTE | 2018-05-27 12:36 | Fluoroscopy Report ---
FL hip LT 1V CLINICAL HISTORY: LEFT ANTERIOR HIP COMPARISON STUDY: None. FLUOROSCOPY TIME: 37 seconds. FINDINGS: 2 fluoroscopic spot images of the left hip demonstrate a left total hip arthroplasty. The h ardware appears intact. No fracture or dislocation. IMPRESSION: Fluoroscopy provided for left total hip arthroplasty. Electronically signed by: Paxton Lynn M.D. 05/27/2018 12:35 PM
[2018-05-27] MEDS: AMLODIPINE BESYLATE 5 MG TAB PO SCH (12:51)
[2018-05-27] MEDS: PANTOprazole 40 MG TAB PO SCH (12:52)
[2018-05-27] MEDS: DOCUSATE SODIUM 100 MG CAP PO SCH ×2 (13:19→20:36)
[2018-05-27] MEDS: KETOROLAC TROMETHAMINE 15 MG/ML VIAL IV SCH ×3 (13:20→23:29)
[2018-05-27] MEDS: MULTIVITAMIN TAB PO SCH (13:20)
[2018-05-27] MEDS: ACETAMINOPHEN 500 MG TAB PO SCH ×2 (13:21→22:12)
[2018-05-27] MEDS: CEFAZOLIN 1000MG 1,000 MG/7.5 ML SYR IV SCH ×2 (13:21→22:17)
[2018-05-27] MEDS: SODIUM CHLORIDE 0.9% 1000ML 1,000 ML IV SCH ×2 (13:27→22:17)
[2018-05-27] MEDS: LISINOPRIL 10 MG TAB PO SCH (20:36)
[2018-05-27] MEDS: LATANOPROST 0.005% OP SOLN 2.5 ML BTL OPB SCH (20:36)
[2018-05-27] MEDS: SENNA 8.6 MG TAB PO SCH (20:36)
[2018-05-27] MEDS: ASPIRIN 81 MG ECTAB PO SCH (20:36)
[2018-05-28] MEDS: KETOROLAC TROMETHAMINE 15 MG/ML VIAL IV SCH ×4 (06:03→23:30)
[2018-05-28] MEDS: ACETAMINOPHEN 500 MG TAB PO SCH ×3 (06:03→22:47)
--- NOTE | 2018-05-28 06:23 | Orthopedic Progress Note ---
Date of Service May 28, 2018 Assessment & Plan (1) Osteoarthritis of left hip: Overall she is doing fairly well. She will be seen by physical therapy today to do more ambulation. She is on aspirin for DVT prophylaxis. Her pain is controlled on oxycodone. We plan to discharge her to home tomorrow. Present on Admission?: Yes Subjective Zo was seen and examined at bedside this morning. Overall she is doing fairly well. She is not having much pain in the hip. She is been up and ambulating to the bathroom. She has no complaints. Physical Exam Vital Signs (Past 24 Hours): Last Vital Signs Temp 36.6 C 05/28/18 04:10 Pulse 84 05/28/18 04:10 Resp 16 05/28/18 04:10 BP 117/71 05/28/18 04:10 Pulse Ox 92 05/28/18 04:10 Musculoskeletal: On physical examination of the left hip, the Eliz VAC dressing is to suction. Her leg lengths are equal. She is active dorsiflexion and plantarflexion of the left ankle. Sensation is intact throughout. Results & Data Diagnostic Findings Postoperative x-rays of the left hip show the prosthesis to be in anatomic alignment without any evidence of fracture, dislocation, or loosening.
[2018-05-28 06:30] LABS: Hematocrit (blood only) 34.2 % (37-47); Hemoglobin 11.1 g/dL (12.0-16.0); Immature Granulocytes # (auto) 0.02 K/uL (0.00-0.02); Immature Granulocytes % (auto) 0.2 %; Lymphocytes # (auto) 1.25 K/uL (1.2-3.4); Lymphocytes % (auto) 9.9 %; Mean Corpuscular Hgb Conc 32.5 g/dL (32-36); Mean Corpuscular Volume 87.5 fL (80-100); Mean Platelet Volume 10.6 fL (7.4-10.4); Monocytes # (auto) 1.21 K/uL (0.11-0.59); Monocytes % (auto) 9.6 %; Neutrophils # (auto) 10.13 K/uL (1.4-6.5); Neutrophils % (auto) 80.3 %; Platelet Count 228 K/uL (130-400); RDW Coefficient of Variation 14.3 % (11.5-14.5); RDW Standard Deviation 45.8 fL (36.4-46.3); Red Blood Count 3.91 M/uL (4.2-5.4); White Blood Count 12.61 K/uL (4.8-10.8)
[2018-05-28 07:05] LABS: BUN Creatinine Ratio 21.4 (10-20); Calcium 8.9 mg/dl (8.5-10.1); Creatinine Clr Calc Pharmacy 63.2 ml/min; Est GFR (African American) 100.3; Est GFR (Non-African American) 86.5; Potassium 3.8 mmol/L (3.5-5.1)
--- NOTE | 2018-05-28 08:26 | Anesthesiology Progress Note ---
Date of Service May 28, 2018 Anesthesia Post Procedure Vital Signs Vital Signs: Temp Pulse Pulse Resp BP BP Pulse Ox 05/28/18 07:00 36.6 C 66 16 116/76 96 05/28/18 04:10 36.6 C 84 16 117/71 92 05/27/18 23:10 36.5 C 64 16 120/67 91 05/27/18 19:33 36.4 C L 60 17 126/77 95 05/27/18 15:14 36.5 C 66 17 111/69 95 05/27/18 13:10 37.0 C 75 14 109/70 97 05/27/18 12:07 36.3 C L 60 16 101/64 96 05/27/18 11:10 36.2 C L 62 18 106/70 98 05/27/18 10:37 57 L 14 124/79 94 05/27/18 10:12 54 L 18 114/73 96 05/27/18 09:45 36.1 C L 63 17 116/76 94 05/27/18 09:35 36.8 C 61 18 109/73 93 05/27/18 09:25 61 19 107/72 93 05/27/18 09:15 65 17 103/74 95 05/27/18 09:05 65 19 117/75 99 05/27/18 08:55 71 10 L 94/68 L 98 05/27/18 08:49 36.3 C L 75 18 92/63 L 97 Pain Intensity Left Hip: Pain Intensity: 0 Notes Mental Status: alert / awake / arousable Patient Amnestic to Procedure: Yes Nausea / Vomiting: adequately controlled Pain: adequately controlled Airway Patency, RR, SpO2: stable & adequate BP & HR: stable & adequate Neuraxial Anesthesia: was administered and sensory block is resolving Anesthetic Complications: no major complications apparent Notes: POD #1 s/p Left LIAT. Doing well without complaints.
[2018-05-28] MEDS: ASPIRIN 81 MG ECTAB PO SCH ×2 (08:48→20:39)
[2018-05-28] MEDS: PANTOprazole 40 MG TAB PO SCH (08:48)
[2018-05-28] MEDS: AMLODIPINE BESYLATE 5 MG TAB PO SCH (08:48)
[2018-05-28] MEDS: DOCUSATE SODIUM 100 MG CAP PO SCH ×2 (08:48→20:39)
[2018-05-28] MEDS: MULTIVITAMIN TAB PO SCH (08:51)
[2018-05-28] MEDS: OXYCODONE HCL IR 5 MG TAB (IMMEDIATE RELEASE) PO PRN (15:52)
[2018-05-28] MEDS: SENNA 8.6 MG TAB PO SCH (20:39)
[2018-05-28] MEDS: LISINOPRIL 10 MG TAB PO SCH (20:40)
[2018-05-28] MEDS: LATANOPROST 0.005% OP SOLN 2.5 ML BTL OPB SCH (20:40)
[2018-05-29] MEDS: KETOROLAC TROMETHAMINE 15 MG/ML VIAL IV SCH (06:11)
[2018-05-29] MEDS: ACETAMINOPHEN 500 MG TAB PO SCH (06:12)
[2018-05-29] MEDS: PANTOprazole 40 MG TAB PO SCH (08:46)
[2018-05-29] MEDS: MULTIVITAMIN TAB PO SCH (08:46)
[2018-05-29] MEDS: AMLODIPINE BESYLATE 5 MG TAB PO SCH (08:47)
[2018-05-29] MEDS: DOCUSATE SODIUM 100 MG CAP PO SCH (08:47)
[2018-05-29] MEDS: ASPIRIN 81 MG ECTAB PO SCH (08:47)
[2018-05-29] MEDS: OXYCODONE HCL IR 5 MG TAB (IMMEDIATE RELEASE) PO PRN (08:49)
--- NOTE | 2018-05-29 08:55 | Orthopedic Progress Note ---
Date of Service May 29, 2018 Assessment & Plan (1) Osteoarthritis of left hip: Overall she is doing fairly well. She is not having much pain in the hip at this point. She participated well yesterday with physical therapy. We plan to discharge her to home later this morning. She is on aspirin for DVT prophylaxis. She will follow-up with orthopedics in 2 weeks. Present on Admission?: Yes Subjective Zo was seen and examined at bedside this morning. Overall she is doing fairly well. She is has some soreness in the hip which is to be expected but she participated well with physical therapy. She has no complaints. She is looking forward to going home. Physical Exam Vital Signs (Past 24 Hours): Last Vital Signs Temp 36.6 C 05/29/18 07:54 Pulse 65 05/29/18 07:54 Resp 16 05/29/18 07:54 BP 113/71 05/29/18 07:54 Pulse Ox 94 05/29/18 07:54 Musculoskeletal: Physical examination of the left hip, the Eliz VAC dressing is to suction. Her leg lengths are equal. She is active dorsiflexion and plantarflexion of her left ankle.
--- NOTE | 2018-05-30 12:24 | Discharge Summary ---
Date of Service June 01, 2018 Admission HPI Per Admitting Provider Zo is a pleasant 77-year-old female who is been dealing with chronic increasing left hip and groin pain. She has been treated conservatively for a while. She has had 5 intra-articular hip injections. Unfortunately the injections are no longer helping. Her hip pain is getting worse. X-rays and clinical examination have been diagnostic for primary osteoarthritis of the left hip. After failing extensive conservative treatment, she has elected proceed with a left total hip arthroplasty. Discharge Data Consultations 05/28/18 08:00 Consult Case Management - Discharge Planning Routine Procedures Performed Operation Date: 05/27/18 07:00 Actual Procedures p Left Anterior Total Hip Arthroplasty(Left) - Bassem Joyner, DO
--- NOTE | 2018-05-31 07:24 | Discharge Summary ---
Date of Service May 31, 2018 Admission HPI Per Admitting Provider Zo is a pleasant 77-year-old female who is been dealing with chronic increasing left hip and groin pain. She has been treated conservatively for a while. She has had 5 intra-articular hip injections. Unfortunately the injections are no longer helping. Her hip pain is getting worse. X-rays and clinical examination have been diagnostic for primary osteoarthritis of the left hip. After failing extensive conservative treatment, she has elected proceed with a left total hip arthroplasty. Specialty Data Orthopedic H & H 04/27/18 05/28/18 Range/Units 12:13 05:06 Hgb 14.4 11.1 L (12.0-16.0) g/dL Hct 42.7 34.2 L (37-47) % Coagulation 04/27/18 Range/Units 12:13 INR 1.0 (0.9-1.1) Discharge Data Consultations 05/28/18 08:00 Consult Case Management - Discharge Planning Routine Procedures Performed Operation Date: 05/27/18 07:00 Actual Procedures p Left Anterior Total Hip Arthroplasty(Left) - Bassem Joyner DO Hospital Course (1) Osteoarthritis of left hip: On May 27, 2018 Zo arrived at [facility] and underwent a left anterior total hip arthroplasty without complication. She had a spinal anesthetic. Postoperatively she was started on aspirin for DVT prophylaxis and discharged to general orthopedic floors. Her hospital course was uneventful. On postop day #1 her H&H was stable and her pain was well controlled. She was able to ambulate well with physical therapy. She was having a little more soreness in her hip by the afternoon. She was eating well. On postop day #2 she was continued to do fairly well. She was excited about going home. She was seen once again by physical therapy. She was then discharged home. She will get home physical therapy. She will follow-up with orthopedics in 2 weeks. Discharge Instructions Home Medications Medication Instructions Recorded Confirmed latanoprost 1 drp OPB HS 12/09/17 05/29/18 omeprazole 20 mg PO QAM 12/09/17 05/29/18 amlodipine 2.5 mg PO QAM 04/20/18 05/29/18 lisinopril 30 mg PO HS 04/20/18 05/29/18 Previous Rx's Medication Instructions Recorded aspirin [Aspir-81] 81 mg PO BID #84 tab 05/28/18 oxycodone 5 - 10 mg PO Q4H PRN #40 tab 05/28/18
== END 2018-05-29 10:45 | disposition home health service (06) | DRG 470 ==
LOC: ASU 04:52 → 3E 08:36

== ENCOUNTER 2018-05-29 19:40 | Inpatient (IN) ==
[2018-05-29] MEDS ORDERED: ONDANSETRON INJ 2 MG/ML 2 ML VIAL IV STA (19:49)
[2018-05-29] MEDS ORDERED: MoRPHine SULFATE 4 MG/ML 1 ML CARP\\VIAL IV STA (19:49)
[2018-05-29] MEDS ORDERED: ACETAMINOPHEN 1,000 MG/100 ML VIAL IV STA (19:53)
[2018-05-29] MEDS ORDERED: SODIUM CHLORIDE 0.9% 500 ML IV SCH (20:00)
[2018-05-29] MEDS ORDERED: MoRPHine SULFATE 2 MG/ML CARP ONE (20:06)
--- NOTE | 2018-05-29 20:18 | Emergency Department Note ---
Entered by Gallo Caldera acting as a scribe for Dave Echavarria MD History of Present Illness General Chief complaint: Abdominal Pain Stated complaint: ILLNESS Time Seen by Provider: 05/29/18 19:44 Source: patient and RN notes reviewed History of Present Illness Provider complaint: Abdominal pain Onset (ago): hour(s) 7 Location: abdomen Radiation: non-radiation Pain Consistency: + constant Relieved By: + none Exacerbated By: + none Associated symptoms: + loss of appetite and + nausea/vomiting; no fever/chills The patient is a 77 year old female who presents to the Emergency Room with complaints of constant abdominal pain that started this afternoon around 1200. She was just discharged this morning after having her left hip replaced and the pain started about an hour after. She has no fever, diarrhea, or problems with moving her bowels. She moved her bowels twice already today and both were normal. However, she has been abnormally gassy and has vomited once. She also has a history of ulcerative colitis. No fever noted. Home Medications Home Medications Medication Instructions Recorded Confirmed Type latanoprost 1 drp OPB HS 12/09/17 05/29/18 History omeprazole 20 mg PO QAM 12/09/17 05/29/18 History amlodipine 2.5 mg PO QAM 04/20/18 05/29/18 History lisinopril 30 mg PO HS 04/20/18 05/29/18 History aspirin [Aspir-81] 81 mg PO BID #84 tab 05/28/18 05/29/18 Rx oxycodone 5 - 10 mg PO Q4H PRN #40 tab 05/28/18 05/29/18 Rx Allergies Allergy/AdvReac Type Severity Reaction Status Date / Time promethazine AdvReac Intermediate GI SYMPTOMS Verified 05/29/18 20:20 Qkzigol-Qad-Ytm Reductase AdvReac Mild joint pain Verified 05/29/18 20:20 Inhibitor Past Med/Surg History Medical History Stroke 5+ YEARS AGO= NO RESIDUAL EFFECTS Hypertension Colitis Diverticulosis GERD (gastroesophageal reflux disease) Urinary incontinence NIGHTTIME ISSUE Surgical History S/P hernia repair History of bilateral cataract extraction History of colonoscopy History of total left knee replacement Family History Mother , Mother age 44 of liver cancer. Liver cancer Father , Father age 66 of respiratory failure/COPD COPD (chronic obstructive pulmonary disease) Other No pertinent family history Social History Preferred Language: Romanian Beliefs That Will Affect Care: None Current Living Situation: Spouse current occupational status: unemployed Feels Safe at Home: Yes Smoking Status: Never smoker Hx Alcohol Use: No Hx Substance Use: No Review of Systems See HPI for pertinent positives & negatives. and A total of 10 systems reviewed and were otherwise negative Physical Exam Vital Signs Vital Signs - 24 hr 05/29/18 19:43 05/29/18 21:22 Temperature 37.0 C Temperature Source Oral Sepsis Recent Fever Within 48 Hours No Sepsis Action Taken by Nursing No Action Required Pulse Rate 80 Pulse Rate [Right Finger] 88 Pulse Rhythm [Right Finger] Regular Pulse Strength [Right Finger] Normal Respiratory Rate 32 H 18 Respiratory Effort / Characteristics Non-Labored Respiratory Depth Shallow Normal Respiratory Pattern Tachypnea Regular Blood Pressure 146/90 H Blood Pressure [Right Arm] 120/70 Blood Pressure Mean 108 Blood Pressure Mean [Right Arm] 86 Blood Pressure Position [Right Arm] Lying Pulse Oximetry 97 95 Oxygen Delivery Method Room Air Nasal Cannula Oxygen Flow Rate 3 GENERAL: Patient is in moderate distress distress secondary to nausea and pain. HEENT: No acute trauma, normocephalic atraumatic, mucous membranes moist, no nasal congestion, no scleral icterus. NECK: No stridor, no adenopathy, no meningismus, trachea is midline. LUNGS: Clear to auscultation bilaterally, no wheeze, no rhonchi, breath sounds equal. HEART: Without murmurs gallops or rubs, regular rate and rhythm. ABDOMEN: Soft, diffuse mild tenderness, bowel sounds positive, no hernias, no peritonitis. EXTREMITIES: No cyanosis, full range of motion of all the joints without pain or difficulty, no signs for acute trauma. Mild bilateral pedal edema to lower e xtremities. Vacuum type drain over the left hip surgical site. NEUROLOGIC: Oriented x 3, no acute motor or sensory deficits, no focal weakness. SKIN: No rash, no jaundice, no diaphoresis. Course 1945: Past medical records reviewed. The patient was evaluated in room C03, and a complete history and physical examination were performed. 2130: I reevaluated the patient and update her on results and plan of treatment. They all agreed. 2139: I spoke to Dr. Eulogio Marmolejo [facility] Hospitalist about the patient's case and she is going to accept her for further evaluation. Consultations Consultation #1: I spoke to Dr. Eulogio Marmolejo [facility] Hospitalist about the patient's case and she is going to accept her for further evaluation. Time: 21:40 Administered Medications Discontinued Medications Acetaminophen (Ofirmev) 1,000 mg in 100 mls @ 400 mls/hr IV NOW STA Stop: 05/29/18 20:07 Last Infusion: 05/29/18 20:31 Dose: 0 mls/hr Documented by: [id number] Admin: 05/29/18 20:00 Dose: 400 mls/hr Documented by: [id number] Sodium Chloride (Nss) 500 mls @ 999 mls/hr IV .Q31M ISABEL Stop: 05/29/18 20:30 Last Infusion: 05/29/18 21:11 Dose: 0 mls/hr Documented by: [id number] Admin: 05/29/18 20:00 Dose: 999 mls/hr Documented by: [id number] Morphine Sulfate (Morphine Sulfate) 2 mg IV NOW STA Stop: 05/29/18 19:50 Last Admin: 05/29/18 20:00 Dose: 2 mg Documented by: [id number] Morphine Sulfate (Morphine Sulfate) Confirm Administered Dose 2 mg .ROUTE .STK- MED ONE Stop: 05/29/18 20:07 Last Admin: 05/29/18 20:29 Dose: Not Given Documented by: [id number] Ondansetron HCl (Zofran) 4 mg IV NOW STA Stop: 05/29/18 19:50 Last Admin: 05/29/18 20:00 Dose: 4 mg Documented by: [id number] Medical Decision Making Differential Diagnosis Differential Diagnoses: Bowel obstruction, bowel perforation, diverticulitis, colitis, pancreatitis, appendicitis, ileus, pneumonia, RI, UTI, and urinary retention, amongst others. Medical Records Attestation: I reviewed the patient's medical records. Home Medications Current Medication List: was personally reviewed by me Laboratory Data Attestation: I reviewed the patient's lab results. Result diagrams: 05/29/18 20:14 05/29/18 20:52 Lab Results 05/29/18 05/29/1819 Range/Units 20:14 20:14 20:20 WBC 9.20 (4.8-10.8) K/uL RBC 3.99 L (4.2-5.4) M/uL Hgb 11.6 L (12.0-16.0) g/dL Hct 34.2 L (37-47) % MCV 85.7 (80-100) fL MCH 29.1 (25-34) pg MCHC 33.9 (32-36) g/dL RDW Std Deviation 44.8 (36.4-46.3) fL RDW Coeff of Marion 14.4 (11.5-14.5) % Plt Count 229 (130-400) K/uL MPV 10.8 H (7.4-10.4) fL Immature Gran % (Auto) 0.3 % Neut % (Auto) 78.6 % Lymph % (Auto) 10.7 % Desha % (Auto) 9.9 % Eos % (Auto) 0.4 % Baso % (Auto) 0.1 % Immature Gran # (Auto) 0.03 H (0.00-0.02) K/uL Neut # (Auto) 7.23 H (1.4-6.5) K/uL Lymph # (Auto) 0.98 L (1.2-3.4) K/uL Desha # (Auto) 0.91 H (0.11-0.59) K/uL Eos # (Auto) 0.04 (0-0.5) K/uL Baso # (Auto) 0.01 (0-0.2) K/uL Sodium 138 (136-145) mmol/L Potassium (3.5-5.1) mmol/L Chloride 105 (98-107) mmol/L Carbon Dioxide 24 (21-32) mmol/L Anion Gap 9.0 (3-11) BUN 14 (7-18) mg/dl Creatinine 0.71 (0.6-1.2) mg/dl Est Cr Clr Drug Dosing 62.3 ml/min Est GFR ( Amer) 95.2 Est GFR (Non-Af Amer) 82.2 BUN/Creatinine Ratio 20.4 H (10-20) Glucose 100 H (70-99) mg/dl Calcium 9.3 (8.5-10.1) mg/dl Total Bilirubin 0.7 (0.2-1) mg/dl AST (15-37) U/L ALT 30 (12-78) U/L Alkaline Phosphatase 81 (45-117) U/L Total Protein 6.5 (6.4-8.2) gm/dl Albumin 2.7 L (3.4-5.0) gm/dl Globulin 3.8 (2.5-4.0) gm/dl Albumin/Globulin Ratio 0.7 L (0.9-2) Lipase 69 L (73-393) U/L Urine Color Yellow Urine Appearance Clear (Clear) Urine pH 8.0 H (4.5-7.5) Ur Specific Brohman 1.009 (1.000-1.030) Urine Protein Negative (Negative) Urine Glucose (UA) Negative (Negative) Urine Ketones 1+ H (Negative) Urine Blood Negative (Negative) Urine Nitrite Negative (Negative) Urine Bilirubin Negative (Negative) Urine Urobilinogen Negative (Negative) Ur Leukocyte Esterase Negative (Negative) 05/29/18 Range/Units 20:52 WBC (4.8-10.8) K/uL RBC (4.2-5.4) M/uL Hgb (12.0-16.0) g/dL Hct (37-47) % MCV (80-100) fL MCH (25-34) pg MCHC (32-36) g/dL RDW Std Deviation (36.4-46.3) fL RDW Coeff of Marion (11.5-14.5) % Plt Count (130-400) K/uL MPV (7.4-10.4) fL Immature Gran % (Auto) % Neut % (Auto) % Lymph % (Auto) % Desha % (Auto) % Eos % (Auto) % Baso % (Auto) % Immature Gran # (Auto) (0.00-0.02) K/uL Neut # (Auto) (1.4-6.5) K/uL Lymph # (Auto) (1.2-3.4) K/uL Desha # (Auto) (0.11-0.59) K/uL Eos # (Auto) (0-0.5) K/uL Baso # (Auto) (0-0.2) K/uL Sodium (136-145) mmol/L Potassium 3.7 (3.5-5.1) mmol/L Chloride (98-107) mmol/L Carbon Dioxide (21-32) mmol/L Anion Gap (3-11) BUN (7-18) mg/dl Creatinine (0.6-1.2) mg/dl Est Cr Clr Drug Dosing ml/min Est GFR ( Amer) Est GFR (Non-Af Amer) BUN/Creatinine Ratio (10-20) Glucose (70-99) mg/dl Calcium (8.5-10.1) mg/dl Total Bilirubin (0.2-1) mg/dl AST 35 (15-37) U/L ALT (12-78) U/L Alkaline Phosphatase (45-117) U/L Total Protein (6.4-8.2) gm/dl Albumin (3.4-5.0) gm/dl Globulin (2.5-4.0) gm/dl Albumin/Globulin Ratio (0.9-2) Lipase (73-393) U/L Urine Color Urine Appearance (Clear) Urine pH (4.5-7.5) Ur Specific Brohman (1.000-1.030) Urine Protein (Negative) Urine Glucose (UA) (Negative) Urine Ketones (Negative) Urine Blood (Negative) Urine Nitrite (Negative) Urine Bilirubin (Negative) Urine Urobilinogen (Negative) Ur Leukocyte Esterase (Negative) Imaging Data Radiologist's Impression: Radiology results as stated below per my review and the radiologist's interpretation: XR chest 1V portable CLINICAL HISTORY: Epigastric pain COMPARISON STUDY: 04/27/2018 FINDINGS: The cardiac and mediastinal contours remain stable. There is aortic tortuosity. There is no focal pulmonary consolidation. There is mild basilar atelectasis/fibrosis. There is minor interstitial thickening. There are no significant pleural effusions. There is no free intraperitoneal air.[ IMPRESSION: 1. No acute findings 2. Mild basilar atelectasis/fibrosis. Electronically signed by: Alec Obregon M.D. 05/29/2018 9:[address] SCAN OF THE ABDOMEN AND PELVIS WITHOUT CONTRAST CLINICAL HISTORY: Abdominal pain and vomiting COMPARISON STUDY: 10/18/2017 TECHNIQUE: CT scan of the abdomen and pelvis was performed from the lung bases to the proximal femurs. Images are reviewed in the axial, sagittal, and coronal planes. IV contrast was not administered for this examination. A dose lowering technique was utilized adhering to the principles of ALARA. CT DOSE: 306.47 mGy.cm FINDINGS: Lower chest: There is mild basilar atelectatic change/fibrosis. Liver: The unenhanced liver is normal in size, contour, and attenuation. There is no intrahepatic biliary ductal dilatation. Gallbladder: Unremarkable. Spleen: Normal in size and attenuation. Pancreas: Unremarkable. Adrenal glands: Unremarkable. Kidneys: No renal, ureteral, or bladder calculi are visualized. Bowel: There is colonic diverticulosis. There is no acute diverticulitis. There are no findings to indicate acute appendicitis. There are no transition zones indicate bowel obstruction. There is a suspected diverticulum arising from the transverse duodenum. Peritoneum: There is no intraperitoneal free air or abdominal ascites. Vasculature: The abdominal aorta is normal in course and caliber. Adenopathy: None. Pelvic viscera: There is a 28 mm left ovarian cyst, similar to the preceding study. Skeletal structures: There is soft tissue gas adjacent to the left hip, consistent with recent surgery. There are postsurgical changes of a total left hip arthroplasty. There is a thoracolumbar spine scoliosis. There is a grade 1 spondylolisthesis of L4 on L5 and L5 on S1. IMPRESSION: 1. Dependent basilar opacities, likely representing atelectatic change/fibrosis 2. No evidence of bowel obstruction. No evidence of free air 3. Normal appendix. 4. Diverticulosis. No evidence of acute diverticulitis 5. Stable left ovarian cyst. 6. Postsurgical changes of a total left hip arthroplasty with postsurgical soft tissue gas Electronically signed by: Alec Obregon M.D. 05/29/2018 9:06 PM ECG Data Attestation: I personally reviewed and interpreted this ECG as follows: Indication: abdominal pain Rate (beats per minute): 81 Rhythm: normal sinus Findings: no PVC and no ST elevation Blood Pressure Blood Pressure Findings: Normal blood pressure MDM Narrative There is no leukocytosis or worrisome anemia. No significant electrolyte abnormality or kidney failure. There is no hepatitis or pancreatitis. EKG shows a sinus rhythm, no acute ischemia. Urinalysis does not show evidence for infection or for hematuria. Chest film does not show pneumonia or free air. Abdominal and pelvis CT does not show bowel obstruction, free air, no signs of any acute surgical process by CT. The patient presents in some distress. She has diffuse abdominal pain and nausea. She just left the hospital several hours ago after having left hip surgery. The patient was given IV Tylenol, IV morphine, IV Zofran and IV saline. She feels improved. Her O2 saturation did drop though after the morphine, she did well with some supplemental O2. The patient needs hospitalization for her symptoms. She is in no condition to go home especially with the recent hip surgery. This illness may be viral or possibly she has an ileus from the surgery itself. She is more comfortable since being treated here in the ED. I did speak to the patient and her family. I spoke to case management. The on-call hospitalist was consulted. Impression & Plan Diffuse abdominal pain, Vomiting, Status post hip surgery Discharge Plan Visit Data Chief Complaint: Abdominal Pain Stated Complaint: ILLNESS ED Provider: Dave Echavarria Discharge Problem: Diffuse abdominal pain, Vomiting, Status post hip surgery Patient Disposition: Being Evaluated by Hospitalist Forms Stand Alone Forms: Call Back Authorization, [facility] Prescriptions Prescriptions: No Action latanoprost 0.005 % drops 1 drp OPB HS RF: 0 omeprazole 20 mg Tablet,Delayed Release (Dr/Ec) 20 mg PO QAM RF: 0 amlodipine 2.5 mg Tablet 2.5 mg PO QAM RF: 0 lisinopril 30 mg Tablet 30 mg PO HS RF: 0 oxycodone 5 mg Tablet 5 - 10 mg PO Q4H PRN (Reason: pain) Qty: 40 RF: 0 aspirin [Aspir-81] 81 mg Tablet,Delayed Release (Dr/Ec) 81 mg PO BID Qty: 84 RF: 0 Referrals Referrals: Sully Geiger CRNP [Primary Care Provider] - Discharge Problem: Vomiting Qualifiers: Vomiting type: unspecified Vomiting Intractability: non-intractable Nausea presence: with nausea Qualified Code(s): R11.2 - Nausea with vomiting, unspecified The nickieibe's documentation has been prepared under my direction and personally reviewed by me in its entirety. I confirm that the note above accurately reflects all work, treatment, procedures, and medical decision making performed by me.
[2018-05-29 20:21] LABS: Basophils # (auto) 0.01 K/uL (0-0.2); Basophils % (auto) 0.1 %; Eosinophils # (auto) 0.04 K/uL (0-0.5); Eosinophils % (auto) 0.4 %; Hematocrit (blood only) 34.2 % (37-47); Hemoglobin 11.6 g/dL (12.0-16.0); Immature Granulocytes # (auto) 0.03 K/uL (0.00-0.02); Immature Granulocytes % (auto) 0.3 %; Lymphocytes # (auto) 0.98 K/uL (1.2-3.4); Lymphocytes % (auto) 10.7 %; Mean Corpuscular Hgb Conc 33.9 g/dL (32-36); Mean Corpuscular Volume 85.7 fL (80-100); Mean Platelet Volume 10.8 fL (7.4-10.4); Monocytes # (auto) 0.91 K/uL (0.11-0.59); Monocytes % (auto) 9.9 %; Neutrophils # (auto) 7.23 K/uL (1.4-6.5); Neutrophils % (auto) 78.6 %; Platelet Count 229 K/uL (130-400); RDW Coefficient of Variation 14.4 % (11.5-14.5); RDW Standard Deviation 44.8 fL (36.4-46.3); Red Blood Count 3.99 M/uL (4.2-5.4)
[2018-05-29 20:46] LABS: Appearance Urine Clear (Clear); Bilirubin Urine Negative (Negative); Blood Urine Negative (Negative); Color Urine Yellow; Glucose Urine UA Negative (Negative); Ketones Urine 1+ (Negative); Leukocyte Esterase Urine Negative (Negative); Nitrite Urine Negative (Negative); Protein Urine Negative (Negative); Specific Gravity Urine 1.009 (1.000-1.030); Urobilinogen Urine Negative (Negative)
[2018-05-29 20:48] LABS: Albumin Globulin Ratio 0.7 (0.9-2); Albumin Level 2.7 gm/dl (3.4-5.0); BUN Creatinine Ratio 20.4 (10-20); Bilirubin,Total 0.7 mg/dl (0.2-1); Calcium 9.3 mg/dl (8.5-10.1); Creatinine Clr Calc Pharmacy 62.3 ml/min; Est GFR (African American) 95.2; Est GFR (Non-African American) 82.2; Globulin 3.8 gm/dl (2.5-4.0); Total Protein 6.5 gm/dl (6.4-8.2)
--- NOTE | 2018-05-29 21:07 | CT Scan Report ---
CT SCAN OF THE ABDOMEN AND PELVIS WITHOUT CONTRAST CLINICAL HISTORY: Abdominal pain and vomiting COMPARISON STUDY: 10/18/2017 TECHNIQUE: CT scan of the abdomen and pelvis was performed from the lung bases to the proximal femurs . Images are reviewed in the axial, sagittal, and coronal planes. IV contrast was not administered fo r this examination. A dose lowering technique was utilized adhering to the principles of ALARA. CT DOSE: 306.47 mGy.cm FINDINGS: Lower chest: There is mild basilar atelectatic change/fibrosis. Liver: The unenhanced liver is normal in size, contour, and attenuation. There is no intrahepatic elina iary ductal dilatation. Gallbladder: Unremarkable. Spleen: Normal in size and attenuation. Pancreas: Unremarkable. Adrenal glands: Unremarkable. Kidneys: No renal, ureteral, or bladder calculi are visualized. Bowel: There is colonic diverticulosis. There is no acute diverticulitis. There are no findings to in dicate acute appendicitis. There are no transition zones indicate bowel obstruction. There is a suspe cted diverticulum arising from the transverse duodenum. Peritoneum: There is no intraperitoneal free air or abdominal ascites. Vasculature: The abdominal aorta is normal in course and caliber. Adenopathy: None. Pelvic viscera: There is a 28 mm left ovarian cyst, similar to the preceding study. Skeletal structures: There is soft tissue gas adjacent to the left hip, consistent with recent surger y. There are postsurgical changes of a total left hip arthroplasty. There is a thoracolumbar spine sc oliosis. There is a grade 1 spondylolisthesis of L4 on L5 and L5 on S1. IMPRESSION: 1. Dependent basilar opacities, likely representing atelectatic change/fibrosis 2. No evidence of bowel obstruction. No evidence of free air 3. Normal appendix. 4. Diverticulosis. No evidence of acute diverticulitis 5. Stable left ovarian cyst. 6. Postsurgical changes of a total left hip arthroplasty with postsurgical soft tissue gas Electronically signed by: Alec Obregon M.D. 05/29/2018 9:06 PM
[2018-05-29 21:16] LABS: Potassium 3.7 mmol/L (3.5-5.1)
--- NOTE | 2018-05-29 21:18 | XRay Report ---
XR chest 1V portable CLINICAL HISTORY: Epigastric pain COMPARISON STUDY: 04/27/2018 FINDINGS: The cardiac and mediastinal contours remain stable. There is aortic tortuosity. There is no focal pulmonary consolidation. There is mild basilar atelectasis/fibrosis. There is minor interstiti al thickening. There are no significant pleural effusions. There is no free intraperitoneal air.[ IMPRESSION: 1. No acute findings 2. Mild basilar atelectasis/fibrosis. Electronically signed by: Alec Obregon M.D. 05/29/2018 9:16 PM
--- NOTE | 2018-05-30 00:14 | History & Physical Report ---
Date of Service May 29, 2018 Assessment & Plan (1) Diffuse abdominal pain: s/p left LIAT POD #2 presenting with diffuse abdominal pain, nausea and vomiting. Suspect mild post-operative ileus. Patient with history of the same after she had knee replacement. Presently she is passing flatus, no pain, no nausea * Observation to medical floor * NPO, advance diet as tolerated * IVF - LR at 100mL/hr * Zofran and Morphine PRN * Optimize electrolytes * Surgical consult if condition progresses Present on Admission?: Yes (2) Vomiting: Most liekly secondary to above * Zofran PRN Present on Admission?: Yes (3) Status post hip surgery: POD #2 from left LIAT. Overall doing well. No evidence of infections. H/H stable from discharge. * Continue ASA 81mg po BID * Pain control with Morphine PRN * Zofran PRN (4) Hypertension: Blood pressure well controlled at present. 117/76 * Continue Lisinopril 30mg po qHS * Continue Norvasc * Continue to monitor (5) GERD (gastroesophageal reflux disease): Chronic. Stable * Continue Omeprazole F/E/N- LR at 100mL/hr, monitor electrolytes and replete as needed, NPO for now, advance as tolerated Ppx - ASA BID, SCDs and TASHI stockings Code -Full per discussion with patient History of Present Illness Chief Complaint: abdominal pain Primary Care Provider: JUAN Keen Zo Elizabeth is a 77yo female with history of prior CVA, HTN, GERD. She had an anterior total hip arthroplasty performed on the left hip by Dr. Joyner on 05/27/18. Surgery was well tolerated. No complications identified. She was dishcharged home in stable condition today. Upon arrival home patient began to feel ill. She had poor appetite as well as severe nausea with two episodes of non-bloody/non-bilious vomiting. Also with cramping/sharp diffuse abdominal pain. Patient tolerated breakfast this AM but has not eaten since the morning. She is passing gas and had two normal bowel movements. She took Zofran with no relief. ER Course: Tylenol. Morphine 2gm x 2, Zofran 4mg Allergies Allergy/AdvReac Type Severity Reaction Status Date / Time promethazine AdvReac Intermediate GI SYMPTOMS Verified 05/29/18 20:20 Dcenbkp-Nyk-Nwz Reductase AdvReac Mild joint pain Verified 05/29/18 20:20 Inhibitor Home Medications Home Medications Medication Instructions Recorded Confirmed Type latanoprost 1 drp OPB HS 12/09/17 05/29/18 History omeprazole 20 mg PO QAM 12/09/17 05/29/18 History amlodipine 2.5 mg PO QAM 04/20/18 05/29/18 History lisinopril 30 mg PO HS 04/20/18 05/29/18 History aspirin [Aspir-81] 81 mg PO BID #84 tab 05/28/18 05/29/18 Rx oxycodone 5 - 10 mg PO Q4H PRN #40 tab 05/28/18 05/29/18 Rx Past Med/Surg History Medical History Stroke 5+ YEARS AGO= NO RESIDUAL EFFECTS Hypertension Colitis Diverticulosis GERD (gastroesophageal reflux disease) Urinary incontinence NIGHTTIME ISSUE Surgical History S/P hernia repair History of bilateral cataract extraction History of colonoscopy History of total left knee replacement Family History Mother , Mother age 44 of liver cancer. Liver cancer Father , Father age 66 of respiratory failure/COPD COPD (chronic obstructive pulmonary disease) Other No pertinent family history Social History Preferred Language: Bulgarian Beliefs That Will Affect Care: None Current Living Situation: Spouse current occupational status: unemployed Feels Safe at Home: Yes Smoking Status: Never smoker Hx Alcohol Use: No Hx Substance Use: No Review of Systems All systems reviewed & are unremarkable except as noted in HPI & below Physical Exam Vital Signs (Past 24 Hours): Last Vital Signs Temp 37.0 C 05/29/18 19:43 Pulse 76 05/29/18 23:59 Resp 20 05/29/18 23:59 BP 117/76 05/29/18 23:59 Pulse Ox 97 05/29/18 23:59 Physical Exam: General: patient resting comfortably, NAD, non-toxic in appearance, AA&O x 4, just given Morphine and was euphoric Skin: warm, dry, no rashes or lesions HEENT: NC/AT, PERRL, EOMI, anicteric sclera, conjunctiva without injection, external ear normal to inspection and nontender, nares patent, moist mucus membranes, dentition intact, no oropharyngeal lesions, neck supple, trachea midline, no LAD, no thyromegaly, no JVD Heart: +S1/S2, regular, no m/r/g Lungs: equal air entry bilaterally, no rales/rhonchi/wheezes Abd: +BS, diminished, soft, NT, mildly distended and tympanic to percussion, no masses/organomegaly/ascites Ext: warm, 2+ pulses in UE/LE bilaterally, no clubbing/cyanosis or edema, Wound vac in place on left hip, no bleeding/drainage or erythema. No hematoma. Neuro: nonfocal, patient AA&O x 4, speech intact, no facial droop, moving all extremities on command with equal strength 5/5 Results & Data Laboratory Results Lab Results 05/29/18 05/29/18 05/29/18 Range/Units 20:14 20:14 20:20 WBC 9.20 (4.8-10.8) K/uL RBC 3.99 L (4.2-5.4) M/uL Hgb 11.6 L (12.0-16.0) g/dL Hct 34.2 L (37-47) % MCV 85.7 (80-100) fL MCH 29.1 (25-34) pg MCHC 33.9 (32-36) g/dL RDW Std Deviation 44.8 (36.4-46.3) fL RDW Coeff of [place] 14.4 (11.5-14.5) % Plt Count 229 (130-400) K/uL MPV 10.8 H (7.4-10.4) fL Immature Gran % (Auto) 0.3 % Neut % (Auto) 78.6 % Lymph % (Auto) 10.7 % Walton % (Auto) 9.9 % Eos % (Auto) 0.4 % Baso % (Auto) 0.1 % Immature Gran # (Auto) 0.03 H (0.00-0.02) K/uL Neut # (Auto) 7.23 H (1.4-6.5) K/uL Lymph # (Auto) 0.98 L (1.2-3.4) K/uL Walton # (Auto) 0.91 H (0.11-0.59) K/uL Eos # (Auto) 0.04 (0-0.5) K/uL Baso # (Auto) 0.01 (0-0.2) K/uL Sodium 138 (136-145) mmol/L Potassium (3.5-5.1) mmol/L Chloride 105 (98-107) mmol/L Carbon Dioxide 24 (21-32) mmol/L Anion Gap 9.0 (3-11) BUN 14 (7-18) mg/dl Creatinine 0.71 (0.6-1.2) mg/dl Est Cr Clr Drug Dosing 62.3 ml/min Est GFR ( Amer) 95.2 Est GFR (Non-Af Amer) 82.2 BUN/Creatinine Ratio 20.4 H (10-20) Glucose 100 H (70-99) mg/dl Calcium 9.3 (8.5-10.1) mg/dl Total Bilirubin 0.7 (0.2-1) mg/dl AST (15-37) U/L ALT 30 (12-78) U/L Alkaline Phosphatase 81 (45-117) U/L Total Protein 6.5 (6.4-8.2) gm/dl Albumin 2.7 L (3.4-5.0) gm/dl Globulin 3.8 (2.5-4.0) gm/dl Albumin/Globulin Ratio 0.7 L (0.9-2) Lipase 69 L (73-393) U/L Urine Color Yellow Urine Appearance Clear (Clear) Urine pH 8.0 H (4.5-7.5) Ur Specific [place] 1.009 (1.000-1.030) Urine Protein Negative (Negative) Urine Glucose (UA) Negative (Negative) Urine Ketones 1+ H (Negative) Urine Blood Negative (Negative) Urine Nitrite Negative (Negative) Urine Bilirubin Negative (Negative) Urine Urobilinogen Negative (Negative) Ur Leukocyte Esterase Negative (Negative) 05/29/18 Range/Units 20:52 WBC (4.8-10.8) K/uL RBC (4.2-5.4) M/uL Hgb (12.0-16.0) g/dL Hct (37-47) % MCV (80-100) fL MCH (25-34) pg MCHC (32-36) g/dL RDW Std Deviation (36.4-46.3) fL RDW Coeff of Marion (11.5-14.5) % Plt Count (130-400) K/uL MPV (7.4-10.4) fL Immature Gran % (Auto) % Neut % (Auto) % Lymph % (Auto) % Walton % (Auto) % Eos % (Auto) % Baso % (Auto) % Immature Gran # (Auto) (0.00-0.02) K/uL Neut # (Auto) (1.4-6.5) K/uL Lymph # (Auto) (1.2-3.4) K/uL Walton # (Auto) (0.11-0.59) K/uL Eos # (Auto) (0-0.5) K/uL Baso # (Auto) (0-0.2) K/uL Sodium (136-145) mmol/L Potassium 3.7 (3.5-5.1) mmol/L Chloride (98-107) mmol/L Carbon Dioxide (21-32) mmol/L Anion Gap (3-11) BUN (7-18) mg/dl Creatinine (0.6-1.2) mg/dl Est Cr Clr Drug Dosing ml/min Est GFR ( Amer) Est GFR (Non-Af Amer) BUN/Creatinine Ratio (10-20) Glucose (70-99) mg/dl Calcium (8.5-10.1) mg/dl Total Bilirubin (0.2-1) mg/dl AST 35 (15-37) U/L ALT (12-78) U/L Alkaline Phosphatase (45-117) U/L Total Protein (6.4-8.2) gm/dl Albumin (3.4-5.0) gm/dl Globulin (2.5-4.0) gm/dl Albumin/Globulin Ratio (0.9-2) Lipase (73-393) U/L Urine Color Urine Appearance (Clear) Urine pH (4.5-7.5) Ur Specific [place] (1.000-1.030) Urine Protein (Negative) Urine Glucose (UA) (Negative) Urine Ketones (Negative) Urine Blood (Negative) Urine Nitrite (Negative) Urine Bilirubin (Negative) Urine Urobilinogen (Negative) Ur Leukocyte Esterase (Negative) Diagnostic Findings CT SCAN OF THE ABDOMEN AND PELVIS WITHOUT CONTRAST CLINICAL HISTORY: Abdominal pain and vomiting COMPARISON STUDY: 10/18/2017 TECHNIQUE: CT scan of the abdomen and pelvis was performed from the lung bases to the proximal femurs. Images are reviewed in the axial, sagittal, and coronal planes. IV contrast was not administered for this examination. A dose lowering technique was utilized adhering to the principles of ALARA. CT DOSE: 306.47 mGy.cm FINDINGS: Lower chest: There is mild basilar atelectatic change/fibrosis. Liver: The unenhanced liver is normal in size, contour, and attenuation. There is no intrahepatic biliary ductal dilatation. Gallbladder: Unremarkable. Spleen: Normal in size and attenuation. Pancreas: Unremarkable. Adrenal glands: Unremarkable. Kidneys: No renal, ureteral, or bladder calculi are visualized. Bowel: There is colonic diverticulosis. There is no acute diverticulitis. There are no findings to indicate acute appendicitis. There are no transition zones indicate bowel obstruction. There is a suspected diverticulum arising from the transverse duodenum. Peritoneum: There is no intraperitoneal free air or abdominal ascites. Vasculature: The abdominal aorta is normal in course and caliber. Adenopathy: None. Pelvic viscera: There is a 28 mm left ovarian cyst, similar to the preceding study. Skeletal structures: There is soft tissue gas adjacent to the left hip, consistent with recent surgery. There are postsurgical changes of a total left hip arthroplasty. There is a thoracolumbar spine scoliosis. There is a grade 1 spondylolisthesis of L4 on L5 and L5 on S1. IMPRESSION: 1. Dependent basilar opacities, likely representing atelectatic change/fibrosis 2. No evidence of bowel obstruction. No evidence of free air 3. Normal appendix. 4. Diverticulosis. No evidence of acute diverticulitis 5. Stable left ovarian cyst. 6. Postsurgical changes of a total left hip arthroplasty with postsurgical soft tissue gas Electronically signed by: Alec Obregon M.D. 05/29/2018 9:06 PM Dictated: 05/29/[id number] Transcribed: 05/29/182057 XR chest 1V portable CLINICAL HISTORY: Epigastric pain COMPARISON STUDY: 04/27/2018 FINDINGS: The cardiac and mediastinal contours remain stable. There is aortic tortuosity. There is no focal pulmonary consolidation. There is mild basilar atelectasis/fibrosis. There is minor interstitial thickening. There are no significant pleural effusions. There is no free intraperitoneal air.[ IMPRESSION: 1. No acute findings 2. Mild basilar atelectasis/fibrosis. Electronically signed by: Alec Obregon M.D. 05/29/2018 9:16 PM Dictated: 05/29/[id number] Transcribed: 05/29/182114 ECG Additional Comments: NSR at 81bpm, normal axis, BY=210, QRS=84, HIv=939, no acute ischemic changes Code Status & VTE Plan Code Status FULL VTE Prophylaxis Plan VTE Prophylaxis will be ordered: Yes Critical Care Time Critical Care Time: No (1) GERD (gastroesophageal reflux disease) Esophagitis presence: esophagitis presence not specified Qualified Code(s): K21.9 - Gastro-esophageal reflux disease without esophagitis (2) Hypertension Hypertension type: essential hypertension Qualified Code(s): I10 - Essential (primary) hypertension (3) Vomiting Nausea presence: with nausea Vomiting Intractability: non-intractable Vomiting type: unspecified Qualified Code(s): R11.2 - Nausea with vomiting, unspecified
[2018-05-30] MEDS ORDERED: ONDANSETRON INJ 2 MG/ML 2 ML VIAL IV PRN (00:26)
[2018-05-30 00:47] LABS: Magnesium 1.8 mg/dl (1.8-2.4); Phosphorus 1.8 mg/dl (2.5-4.9)
[2018-05-30] MEDS ORDERED: POTASSIUM PHOS 3 MMOL/1 ML INFUSION IV STA (00:49)
[2018-05-30] MEDS ORDERED: MoRPHine SULFATE 2 MG/ML CARP IV PRN (00:49)
[2018-05-30] MEDS ORDERED: LACTATED RINGER'S 1,000 ML IV SCH (01:00)
[2018-05-30] MEDS ORDERED: POTASSIUM PHOSPHATE 15 MMOL in SODIUM CHLORIDE 0.9% 250 ML IV ONE (01:15)
[2018-05-30 07:05] LABS: Basophils # (auto) 0.01 K/uL (0-0.2); Basophils % (auto) 0.1 %; Eosinophils # (auto) 0.12 K/uL (0-0.5); Eosinophils % (auto) 1.8 %; Hemoglobin 10.3 g/dL (12.0-16.0); Immature Granulocytes # (auto) 0.02 K/uL (0.00-0.02); Immature Granulocytes % (auto) 0.3 %; Lymphocytes # (auto) 1.51 K/uL (1.2-3.4); Lymphocytes % (auto) 22.3 %; Mean Corpuscular Hgb Conc 33.2 g/dL (32-36); Mean Corpuscular Volume 88.1 fL (80-100); Mean Platelet Volume 10.3 fL (7.4-10.4); Monocytes # (auto) 0.86 K/uL (0.11-0.59); Monocytes % (auto) 12.7 %; Neutrophils # (auto) 4.24 K/uL (1.4-6.5); Neutrophils % (auto) 62.8 %; Platelet Count 203 K/uL (130-400); RDW Coefficient of Variation 14.9 % (11.5-14.5); RDW Standard Deviation 47.8 fL (36.4-46.3); Red Blood Count 3.52 M/uL (4.2-5.4); White Blood Count 6.76 K/uL (4.8-10.8)
[2018-05-30 07:35] LABS: BUN Creatinine Ratio 15.7 (10-20); Calcium 8.5 mg/dl (8.5-10.1); Creatinine Clr Calc Pharmacy 72.4 ml/min; Est GFR (African American) 103.6; Est GFR (Non-African American) 89.4; Potassium 3.8 mmol/L (3.5-5.1)
[2018-05-30] MEDS: PANTOprazole 40 MG TAB PO SCH (08:32)
[2018-05-30] MEDS: AMLODIPINE BESYLATE 5 MG TAB PO SCH (08:32)
[2018-05-30] MEDS: ASPIRIN 81 MG ECTAB PO SCH ×2 (08:32→21:25)
[2018-05-30] MEDS ORDERED: ACETAMINOPHEN SOLN 500 MG/15.62 ML UDP PO SCH (12:15)
[2018-05-30] MEDS ORDERED: ACETAMINOPHEN 500 MG TAB ONE (12:22)
--- NOTE | 2018-05-30 15:29 | Hospitalist Progress Note ---
Date of Service May 30, 2018 Assessment & Plan (1) Diffuse abdominal pain: s/p left LIAT 07/27 with suspected mild post-operative ileus. Patient with history of the same after she had knee replacement. * advance diet as tolerated * IVF - LR at 100mL/hr * Zofran and Morphine PRN - avoid narcotics as much as possible to encourage normal bowl function, patient also doesn't like the way narcotics make her feel. * Surgical consult if condition progresses - currently patient feeling better (2) Vomiting: Most liekly secondary to above * Zofran PRN (3) Status post hip surgery: POD #2 from left LIAT. Overall doing well. No evidence of infections. H/H stable from discharge. * Continue ASA 81mg po BID * Pain control with scheduled acetaminophen, prn morphine, * Zofran PRN (4) Hypertension: Stable * Continue Lisinopril 30mg po qHS * Continue Norvasc * Continue to monitor (5) GERD (gastroesophageal reflux disease): Chronic. Stable * Continue Omeprazole (6) DVT prophylaxis: F/E/N- LR at 100mL/hr, monitor electrolytes and replete as needed, advance as tolerated Ppx - ASA BID, SCDs and TASHI stockings Code -Full per discussion with patient Subjective Ms. Elizabeth is accompanied by her . She is no longer feeling as nauseas but does continue to have hip pain. Review of Systems All systems reviewed & are unremarkable except as noted in HPI & below Physical Exam Vital Signs (Past 24 Hours): Last Vital Signs Temp 36.7 C 05/30/18 08:18 Pulse 80 05/30/18 08:18 Resp 18 05/30/18 08:18 BP 132/78 05/30/18 08:18 Pulse Ox 94 05/30/18 08:18 Physical Exam: General: no distress Eyes: normal inspection, PERLL Respiratory: chest non tender, clear to auscultation, normal breath sounds, no respiratory distress, no accessory muscle use Cardiac: regular rate and rhythm, no rub or gallop, no murmur, no edema, no jvd GI/: active bowel sounds, no abd pain or tenderness, soft, non distended Extremities: normal range of motion, normal strength, non tender Neuro/Psych: alert and oriented x 3, normal mood and affect Skin: normal color, dry, wound vac in place Results & Data Laboratory Results Abnormal lab results 05/29/18 05/29/18 05/29/18 Range/Units 20:14 20:14 20:20 RBC 3.99 L (4.2-5.4) M/uL Hgb 11.6 L (12.0-16.0) g/dL Hct 34.2 L (37-47) % RDW Std Deviation (36.4-46.3) fL RDW Coeff of [place] (11.5-14.5) % MPV 10.8 H (7.4-10.4) fL Immature Gran # (Auto) 0.03 H (0.00-0.02) K/uL Neut # (Auto) 7.23 H (1.4-6.5) K/uL Lymph # (Auto) 0.98 L (1.2-3.4) K/uL [place] # (Auto) 0.91 H (0.11-0.59) K/uL Chloride (98-107) mmol/L Creatinine (0.6-1.2) mg/dl BUN/Creatinine Ratio 20.4 H (10-20) Glucose 100 H (70-99) mg/dl Phosphorus (2.5-4.9) mg/dl Albumin 2.7 L (3.4-5.0) gm/dl Albumin/Globulin Ratio 0.7 L (0.9-2) Lipase 69 L (73-393) U/L Urine pH 8.0 H (4.5-7.5) Urine Ketones 1+ H (Negative) 05/29/18 05/30/18 05/30/18 Range/Units 20:52 06:40 06:40 RBC 3.52 L (4.2-5.4) M/uL Hgb 10.3 L (12.0-16.0) g/dL Hct 31.0 L (37-47) % RDW Std Deviation 47.8 H (36.4-46.3) fL RDW Coeff of [place] 14.9 H (11.5-14.5) % MPV (7.4-10.4) fL Immature Gran # (Auto) (0.00-0.02) K/uL Neut # (Auto) (1.4-6.5) K/uL Lymph # (Auto) (1.2-3.4) K/uL [place] # (Auto) 0.86 H (0.11-0.59) K/uL Chloride 109 H (98-107) mmol/L Creatinine 0.57 L (0.6-1.2) mg/dl BUN/Creatinine Ratio (10-20) Glucose (70-99) mg/dl Phosphorus 1.8 L (2.5-4.9) mg/dl Albumin (3.4-5.0) gm/dl Albumin/Globulin Ratio (0.9-2) Lipase (73-393) U/L Urine pH (4.5-7.5) Urine Ketones (Negative) (1) GERD (gastroesophageal reflux disease) Esophagitis presence: esophagitis presence not specified Qualified Code(s): K21.9 - Gastro-esophageal reflux disease without esophagitis (2) Hypertension Hypertension type: essential hypertension Qualified Code(s): I10 - Essential (primary) hypertension (3) Vomiting Nausea presence: with nausea Vomiting Intractability: non-intractable Vomiting type: unspecified Qualified Code(s): R11.2 - Nausea with vomiting, unspecified
[2018-05-30] MEDS ORDERED: LATANOPROST 0.005% OP SOLN 2.5 ML BTL OPB SCH (21:00)
[2018-05-30] MEDS ORDERED: LISINOPRIL 10 MG TAB PO SCH (21:00)
[2018-05-30] MEDS: ACETAMINOPHEN 500 MG TAB PO SCH (21:27)
[2018-05-31] MEDS: ACETAMINOPHEN 500 MG TAB PO SCH ×3 (05:38→15:34)
[2018-05-31] MEDS: ASPIRIN 81 MG ECTAB PO SCH (10:38)
[2018-05-31] MEDS: PANTOprazole 40 MG TAB PO SCH (10:38)
[2018-05-31] MEDS: AMLODIPINE BESYLATE 5 MG TAB PO SCH (10:38)
[2018-05-31 12:52] LABS: Albumin Level 2.6 gm/dl (3.4-5.0); BUN Creatinine Ratio 16.6 (10-20); Calcium 9.2 mg/dl (8.5-10.1); Creatinine Clr Calc Pharmacy 65.5 ml/min; Est GFR (African American) 100.3; Est GFR (Non-African American) 86.5; Potassium 3.6 mmol/L (3.5-5.1)
[2018-05-31 12:55] LABS: Albumin Globulin Ratio 0.7 (0.9-2); Bilirubin,Total 0.6 mg/dl (0.2-1); Globulin 3.5 gm/dl (2.5-4.0); Total Protein 6.1 gm/dl (6.4-8.2)
--- NOTE | 2018-05-31 15:32 | Ultrasound Report ---
US gallbladder CLINICAL HISTORY: right upper quadrant tenderness, nausea COMPARISON STUDY: Abdominal ultrasound March 24, 2017. CT of the abdomen and pelvis May 29, 2018 . FINDINGS: Liver morphology is normal. Note is made of a 1.8 cm echogenic left hepatic lobe focus whic h is similar to ultrasound of March 24, 2017. This favors focal fat or a hemangioma. A probable 5 m m gallbladder polyp is noted. There is no gallbladder wall thickening. No shadowing gallstones are id entified. There is no sonographic Alvarado sign. Pancreas is within normal limits by sonography. The ta il is slightly obscured. There is no right hydronephrosis. There is no biliary ductal dilatation. The common bile duct measures 5 mm in caliber. IMPRESSION: No gallstones or biliary ductal dilatation. Suspected 5 mm gallbladder polyp. Electronically signed by: Enrique Garcia M.D. 05/31/2018 3:31 PM
[2018-05-31 15:53] VITALS: PULSE 76; TEMP 97.7; O2SAT 93
--- NOTE | 2018-05-31 17:53 | Discharge Summary ---
Date of Service May 31, 2018 Admission HPI Per Admitting Provider Zo Elizabeth is a 77yo female with history of prior CVA, HTN, GERD. She had an anterior total hip arthroplasty performed on the left hip by Dr. Joyner on 05/27/18. Surgery was well tolerated. No complications identified. She was dishcharged home in stable condition today. Upon arrival home patient began to feel ill. She had poor appetite as well as severe nausea with two episodes of non-bloody/non-bilious vomiting. Also with cramping/sharp diffuse abdominal pain. Patient tolerated breakfast this AM but has not eaten since the morning. She is passing gas and had two normal bowel movements. She took Zofran with no relief. ER Course: Tylenol. Morphine 2gm x 2, Zofran 4mg Principal Diagnosis Post operative ileus Discharge Exam Constitutional WD/WN, vitals as above Respiratory normal respiratory effort, lungs clear to auscultation Cardiovascular RRR, no murmur, no edema Gastrointestinal (Abdomen) normal bowel sounds, soft, nontender, no hepatosplenomegaly Musculoskeletal no cyanosis or clubbing, extremities motor strength 5/5 Skin no rashes, warm and dry Neurologic moves all extremities and awake Psychiatric A+Ox3, euthymic affect Discharge Data Allergies Allergy/AdvReac Type Severity Reaction Status Date / Time promethazine AdvReac Intermediate GI SYMPTOMS Verified 05/29/18 20:20 Aaxkcqz-Moz-Pji Reductase AdvReac Mild joint pain Verified 05/29/18 20:20 Inhibitor gluten AdvReac Verified 05/30/18 11:04 lactose AdvReac Verified 05/30/18 11:05 Consultations 05/29/18 21:35 ED Decision to Admit Stat Ordered Studies 05/29/18 19:49 CT abd pelvis wo con Stat 05/31/18 12:12 US gallbladder Routine Hospital Course (1) Diffuse abdominal pain: s/p left LIAT 05/27 with suspected mild post-operative ileus. Patient with history of the same after she had knee replacement. * advance diet as tolerated - patient eating bland diet today and tolerating well, had bowel movement * IVF - LR at 100mL/hr while inpatient * Zofran and Morphine PRN - avoided narcotics as much as possible to encourage normal bowl function, patient also doesn't like the way narcotics make her feel. (2) Vomiting: Most likely secondary to above * Zofran PRN * resolved (3) Status post hip surgery: Overall doing well. No evidence of infections. H/H stable from discharge. * Continue ASA 81mg po BID * Pain control with scheduled acetaminophen, prn morphine * Zofran PRN while inpatient (4) Hypertension: Stable * Continue Lisinopril 30mg po qHS * Continue Norvasc (5) GERD (gastroesophageal reflux disease): Chronic. Stable * Continue Omeprazole (6) DVT prophylaxis: Ppx - ASA BID, SCDs and TASHI stockings Code -Full per discussion with patient Total Time Total Time Spent Total Time Spent (In Minutes): greater than 30 minutes Discharge Plan Discharge Items Patient Disposition: Home - Self-Care Reason For Visit: ABDOMINAL PAIN Discharge Diagnosis: Post operative ileus Discharge Goals: Decrease discomfort Activity: Resume your previous activity Activity Comment: as instructed by orthopedics Non-emergency contact: Primary Care Provider Call non-emergency contact if: you have any medication questions and your symptoms worsen Follow-up/Referrals: Sully Geiger CRNP [Primary Care Provider] - Diet: Low Fiber and Low Fat Diet Comment: Advance your diet as tolerated Addtl Provider Instructions: Please follow up with your primary care provider in about a week and with surgery per their earlier discharge instructions Prescriptions: Continued latanoprost 0.005 % drops 1 drp OPB HS RF: 0 omeprazole 20 mg Tablet,Delayed Release (Dr/Ec) 20 mg PO QAM RF: 0 amlodipine 2.5 mg Tablet 2.5 mg PO QAM RF: 0 lisinopril 30 mg Tablet 30 mg PO HS RF: 0 oxycodone 5 mg Tablet 5 - 10 mg PO Q4H PRN (Reason: pain) Qty: 40 RF: 0 aspirin [Aspir-81] 81 mg Tablet,Delayed Release (Dr/Ec) 81 mg PO BID Qty: 84 RF: 0 Stand-Alone Forms: Call Back Authorization, [facility] Discharge Orders: Discharge Order (Routine); Ordered 05/31/18 Ordered By: Esther Lopes Admission Data Admit Date/Time: 05/31/18 13:48 Attending Provider: Leonidas Jin Admit Provider: Sangita Krishnan Primary Care Provider: Sully Geiger Other Providers: Sangita Krishnan Service: Surgical Services
[2018-05-31 18:51] VITALS: BP 142/86
== END 2018-05-31 19:09 | disposition home or self-care (01) | DRG 394 ==
LOC: 3N 19:40 → ED 19:40 → SUATTDRO 23:04 → 3N 23:59

== ENCOUNTER 2020-06-18 09:44 | Inpatient (IN) ==
[2020-06-18] MEDS ORDERED: ONDANSETRON INJ 2 MG/ML 2 ML VIAL IV STA (10:31)
[2020-06-18] MEDS ORDERED: ACETAMINOPHEN 1,000 MG/100 ML VIAL IV STA (10:31)
[2020-06-18] MEDS ORDERED: ONDANSETRON INJ 2 MG/ML 2 ML VIAL ONE (10:32)
[2020-06-18] MEDS ORDERED: ACETAMINOPHEN 1000 MG/100 ML IV IV ONE (10:32)
--- NOTE | 2020-06-18 10:42 | XRay Report ---
SINGLE VIEW CHEST CLINICAL HISTORY: Sepsis. FINDINGS: An AP, portable, upright chest radiograph is compared to study dated 05/03/2020. The heart i s top normal for projection noting atherosclerotic calcification of the thoracic aorta. Chronic inter stitial thickening is similar to previous. There are low lung volumes with bibasilar scarring/atelect asis. No airspace consolidation or large pleural effusion is identified. No pneumothorax is seen. The skeletal structures are osteopenic. The bony thorax is grossly intact. Degenerative change is seen t hroughout the thoracic spine. IMPRESSION: No active disease in the chest. ACT 112: Negative or not required by law. Electronically signed by: Dave Maradiaga M.D. 06/18/2020 10:41 AM
[2020-06-18 11:01] LABS: Basophils # (auto) 0.01 K/uL (0-0.2); Basophils % (auto) 0.2 %; Eosinophils # (auto) 0.15 K/uL (0-0.5); Hematocrit (blood only) 44.2 % (37-47); Hemoglobin 14.6 g/dL (12.0-16.0); Immature Granulocytes # (auto) 0.02 K/uL (0.00-0.02); Immature Granulocytes % (auto) 0.4 %; Lymphocytes # (auto) 1.12 K/uL (1.2-3.4); Lymphocytes % (auto) 22.4 %; Mean Corpuscular Hemoglobin 29.3 pg (25-34); Mean Corpuscular Volume 88.8 fL (80-100); Monocytes # (auto) 0.55 K/uL (0.11-0.59); Neutrophils # (auto) 3.15 K/uL (1.4-6.5); Platelet Count 219 K/uL (130-400); RDW Standard Deviation 45.8 fL (36.4-46.3); Red Blood Count 4.98 M/uL (4.2-5.4)
[2020-06-18 11:19] LABS: Partial Thromboplastin Ratio 0.9; Partial Thromboplastin Time 23.4 Seconds (21.0-31.0); Prothrombin Time 10.1 Seconds (9.0-12.0)
[2020-06-18 11:24] LABS: Albumin Level 3.3 gm/dl (3.4-5.0); BUN Creatinine Ratio 17.9 (10-20); Calcium 9.7 mg/dl (8.5-10.1); Creatinine Clr Calc Pharmacy 48.2 ml/min; Est GFR (African American) 82.5; Est GFR (Non-African American) 71.2; Magnesium 2.2 mg/dl (1.8-2.4); Potassium 3.4 mmol/L (3.5-5.1)
[2020-06-18 11:32] LABS: Bilirubin,Total 0.6 mg/dl (0.2-1); Globulin 3.2 gm/dl (2.5-4.0); Total Protein 6.5 gm/dl (6.4-8.2); Troponin I 0.05 ng/ml (0-0.045)
[2020-06-18] MEDS ORDERED: OPTIRAY 320 100ml IV ONE (11:36)
[2020-06-18 11:48] LABS: Influenza A virus by PCR Negative (Neg); Influenza B virus by PCR Negative (Neg); RSV by PCR Negative (Neg); SARS CoV2 RNA(COVID-19) InHosp NEGATIVE (Negative)
--- NOTE | 2020-06-18 12:01 | CT Scan Report ---
CT OF THE ABDOMEN AND PELVIS WITH CONTRAST CLINICAL HISTORY: Fever. Lower abdominal pain. COMPARISON STUDY: CT of the abdomen and pelvis May 29, 2018. TECHNIQUE: Following IV administration of 94 mL of Optiray-320, axial images of the abdomen and pelvi s were obtained from the lung bases to the proximal femurs. Images were reviewed in the axial, sagitt al, and coronal planes. IV contrast was administered without complication. Automated exposure contro l was utilized for the study. A dose lowering technique was utilized adhering to the principles of A STEPHANIE. CT DOSE: 474.39 mGycm FINDINGS: Mild cardiomegaly is noted. Subpleural opacities favor atelectasis. Subpleural cystic moran e within the lower lobes is noted. This is chronic. No pneumatosis, free air or portal venous gas is present. There is a small hiatal hernia. The liver, spleen, adrenal glands and pancreas are unremarka ble. There is no biliary or pancreatic ductal dilatation. Note is made of a 2.2 cm left renal cyst. T here is no evidence for a bowel obstruction. There is colonic diverticulosis with evidence for acute diverticulitis. Note is made of wall thickening of the distal sigmoid colon and the rectum as well as the ascending colon. There is minimal adjacent infiltration. The appendix is normal. There is no rodney e air or abscess. Note is made of minimal skin thickening and subcutaneous infiltration of the right anterior abdominal wall. There is a tiny 2.9 x 0.5 cm fluid collection overlying the abdominal wall m usculature. Major vasculature is patent. There are no suspicious osseous lesions. 2.8 cm water attenu ation left adnexal lesion is unchanged. This favors a cyst. Left arthroplasty is noted. IMPRESSION: 1. Wall thickening of the distal sigmoid colon, rectum and right colon. This represents a nonspecific colitis. No free air or abscess. 2. Colonic diverticulosis without evidence for acute diverticulitis. 3. Minimal skin thickening and subcutaneous infiltration with a tiny right abdominal wall fluid colle ction, measuring 2.9 x 0.5 cm. This favors postsurgical change. This likely reflects a seroma. ACT 112: Negative or not required by law. Electronically signed by: Enrique Garcia M.D. 06/18/2020 11:59 AM
[2020-06-18] MEDS ORDERED: SODIUM CHLORIDE 0.9% 1000ML 500 ML IV ONE (12:22)
[2020-06-18 12:29] LABS: Appearance Urine Clear (Clear); Bilirubin Urine Negative (Negative); Blood Urine Negative (Negative); Color Urine Yellow; Glucose Urine UA Negative (Negative); Ketones Urine 1+ (Negative); Leukocyte Esterase Urine Negative (Negative); Nitrite Urine Negative (Negative); Protein Urine Negative (Negative); Urobilinogen Urine Negative (Negative); pH Urine 6.5 (4.5-7.5)
[2020-06-18] MEDS ORDERED: SODIUM CHLORIDE 0.9% 1000ML 1,000 ML IV SCH (12:45)
--- NOTE | 2020-06-18 13:34 | History & Physical Report ---
Date of Service June 18, 2020 Assessment & Plan (1) Colitis: Severe GI illness beginning Wednesday. No blood or mucous. CT abdomen shows colitis. C diff returned negative. Rotavirus is negative. Stool culture sent. 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 COVID-19 is negative -- however, she is hypoxic and this coupled with infectious symptoms still concerning for possible COVID. It is well-documented in literature that a significant subgroup of patients with COVID often have severe GI symptoms in the early portion of the illness. The negative procal and lymphopenia on CBC support a viral etiology. In the end it is possible this is a nonspecific viral gastroenteritis. For that reason will place in airborne precautions as "PUI" and will retest for COVID in 1-2 days. Trial of colestipol to help bulk the stool and slow frequency. Lactinex. Clear liquid diet. IVF. Anti-emetics. (2) Hypoxia: Seen in ER. No clubbing on exam to suggest chronic etiology. CXR with lower lobe opacities. CT chest obtained - no obvious viral-like pneumonia however. Consider repeat cxr in am. O2 via NC to keep sats >90%. Wean O2 as tolerated. See above re: repeat COVID testing. (3) Suspected COVID-19 virus infection: COVID-19 testing negative in ER, but see above regarding my concerns. (4) Elevated troponin: likely myocardial demand ischemia in setting of GI illness, dehydration, etc. repeat troponin later in the day today was trending down. (5) Hypokalemia: replace, repeat level am. mag level wnl. (6) Dyslipidemia: (7) Hypertension: BPs normal without meds due to dehydration. Hold amlodipine, lisinopril, and losartan. (8) GERD (gastroesophageal reflux disease): pepcid 20mg IV BID (9) Glaucoma: cont drops (10) DVT prophylaxis: heparin 5000 BID fluids - D5NS with KCL at 100cc/hr daughter updated at bedside History of Present Illness Chief Complaint: abdominal pain, diarrhea Primary Care Provider: JUAN Keen 79yo female presents with diarrhea and abdominal pain beginning Wednesday morning. The pain is located in the lower abdomen - sharp, crampy. Lots of nausea but no emesis. Unable to eat or drink since the illness started. Drinking fluids makes the symptoms worse. has been sick with similar symptoms (abdominal pain, diarrhea). 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 Further, the community youth secretary's spouse has also been ill. Diarrhea - last episode was this am. Too numerous to count episodes since the illness began. Nocturnal episodes as well. No blood in the stool. No mucous. No fever/chills but does have fever in the hospital at presentation (37.8). Has had achiness/myalgias but no loss of taste/smell, no cough, no cp, no dyspnea. Has had considerable fatigue. and his coworkers have not had respiratory symptoms either. During my admission assessment the patient's O2 sats were 88-90% in room air. The pleth was a perfect waveform. O2 was applied, 2 liters, with improvement in sats to 95%. Allergies Allergy/AdvReac Type Severity Reaction Status Date / Time gluten AdvReac Intermediate Gastrointestinal Verified 06/18/20 11:07 Upset lactose AdvReac Intermediate Gastrointestinal Verified 06/18/20 11:07 Upset promethazine AdvReac Intermediate GI SYMPTOMS Verified 06/18/20 11:07 [id number]-[id number] Reductase AdvReac Mild joint pain Verified 06/18/20 11:07 Inhibitor Home Medications Medication Instructions Recorded Confirmed Type latanoprost 1 drp OPB 12/09/17 06/18/20 History omeprazole 20 mg PO QAM 12/09/17 06/18/20 History amlodipine 2.5 mg PO QAM 04/20/18 06/18/20 History lisinopril 30 mg PO 04/20/18 06/18/20 History aspirin [Aspir-81] 81 mg PO QAM 01/03/19 06/18/20 History losartan 100 mg PO DAILY 06/18/20 06/18/20 History Past Med/Surg History Medical History GERD (gastroesophageal reflux disease) History of colitis Hyperlipidemia Hypertension Nausea and vomiting after administration of anesthetic agent Stroke 5 + years ago - no residual effects > doesn't follow neuro TIA (transient ischemic attack) listed above but pt reports was just a stroke one incident Urinary incontinence NIGHTTIME ISSUE Surgical History History of bilateral cataract extraction History of colonoscopy History of left hip replacement 05/27/2018 [place] History of left inguinal hernia repair History of total left knee replacement Hx of inguinal hernia surgery (01/10/19) Open Right Indirect Inguinal Hernia Repair Without Mesh, Lipoma of Round Ligament Dr. Pittman 01/10/19 S/P excision of lipoma (05/09/20) Right Upper Quadrant Excision of Abdominal Wall Lipoma Dr. Pittman 05/09/2020 Family History Mother , Mother age 44 of liver cancer. 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 Beliefs That Will Affect Care: None marital status: Current Living Situation: Spouse Current Living Situation Comment: live in [place] current occupational status: retired 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 How many Children do You have: 4 Other Information That Helps Us Care for You: No Feels Safe at Home: Yes Safety Concerns: Feels Safe At This Time Assistive Devices: Glasses Review of Systems Constitutional: + body aches, + fatigue, + anorexia and + weight loss (during the illness ); no fever and no chills Eyes: no worsening vision Ear, Nose, Mouth, Throat: no nasal congestion and no sore throat Respiratory: no cough and no dyspnea Cardiovascular: no chest pain, no dyspnea on exertion and no edema Gastrointestinal: + abdominal pain, + nausea and + diarrhea/loose stools; no vomiting and no blood in stools Genitourinary: no dysuria Musculoskeletal: + joint pain (osteoarthritis ) Integumentary: no rash Neurologic: + generalized weakness; no loss of sensation Psychiatric: no depression and no anxiety Endocrine: no diabetes Hematologic / Lymphatic: no easy bleeding and no easy bruising Physical Exam Constitutional: + ill appearing and + frail appearing; no acute distress, + not appropriately hydrated and no altered mental status Eyes: PERRL ENMT: Mouth: + dry oral mucous membranes Neck: trachea midline, no thyromegaly Respiratory: no respiratory distress Auscultation: + crackles (bases); no diminished lung sounds and no wheezes Cardiovascular: Rate/Rhythm: regular rate and regular rhythm Heart Sounds: normal S1 and normal S2; no murmur Vessels: posterior tibial pulses present and dorsalis pedis pulses present; no JVD Extremities: no edema Gastrointestinal (Abdomen): Inspection/Auscultation: normal bowel sounds and + abdominal surgical scar (RUQ - wellhealed ); abdomen not distended Percussion/Palpation: + abdomen tender (LLQ - mild ) and abdomen soft; no guarding and no hepatosplenomegaly Musculoskeletal: no cyanosis or clubbing, extremities motor strength 5/5 Skin: no rashes, warm and dry Neurologic: deep tendon reflexes 2+ bilaterally and moves all extremities Psychiatric: Orientation: alert and oriented x 3 Lymphatic: no cervical lymphadenopathy Results & Data Results & Data ([facility]) Vital Signs (Past 12 Hours) Vital Signs Temp Pulse Resp BP Pulse Ox 06/18/20 13:01 70 18 98 06/18/20 13:00 70 22 122/82 06/18/20 12:30 77 24 123/83 97 06/18/20 12:18 77 22 142/84 H 96 06/18/20 12:01 94 06/18/20 11:30 78 24 126/85 98 06/18/20 11:01 83 21 91 06/18/20 11:00 82 20 132/82 90 06/18/20 10:58 88 L 06/18/20 10:34 89 19 06/18/20 09:55 37.8 C H 97 H 20 130/94 91 Laboratory Results Laboratory Results - last 24 hr 06/18/20 06/18/20 06/18/20 10:47 10:47 10:47 WBC 5.00 RBC 4.98 Hgb 14.6 Hct 44.2 MCV 88.8 MCH 29.3 MCHC 33.0 RDW Std Deviation 45.8 RDW Coeff of [place] 14.0 Plt Count 219 MPV 10.0 Immature Gran % (Auto) 0.4 Neut % (Auto) 63.0 Lymph % (Auto) 22.4 [place] % (Auto) 11.0 Eos % (Auto) 3.0 Baso % (Auto) 0.2 Neut # (Auto) 3.15 Lymph # (Auto) 1.12 L [place] # (Auto) 0.55 Eos # (Auto) 0.15 Baso # (Auto) 0.01 Immature Gran # (Auto) 0.02 PT INR APTT PTT Ratio Sodium 140 Potassium 3.4 L Chloride 106 Carbon Dioxide 31 Anion Gap 3.0 BUN 14 Creatinine 0.79 Est Cr Clr Drug Dosing 48.2 Est GFR ( Amer) 82.5 Est GFR (Non-Af Amer) 71.2 BUN/Creatinine Ratio 17.9 Glucose 83 Lactate Calcium 9.7 Magnesium 2.2 Total Bilirubin 0.6 AST 14 L ALT 24 Alkaline Phosphatase 95 Troponin I 0.050 H* Total Protein 6.5 Albumin 3.3 L Globulin 3.2 Albumin/Globulin Ratio 1.0 Procalcitonin < 0.05 Urine Color Urine Appearance Urine pH Ur Specific [place] Urine Protein Urine Glucose (UA) Urine Ketones Urine Blood Urine Nitrite Urine Bilirubin Urine Urobilinogen Ur Leukocyte Esterase Stl C. diff Tox B Gene COVID-19 Eval Order SARS-CoV-2 (PCR) Influenza Type A (PCR) Influenza Type B (PCR) RSV (RT-PCR) 06/18/20 06/18/20 06/18/20 10:47 10:47 10:57 WBC RBC Hgb Hct MCV MCH MCHC RDW Std Deviation RDW Coeff of [place] Plt Count MPV Immature Gran % (Auto) Neut % (Auto) Lymph % (Auto) [place] % (Auto) Eos % (Auto) Baso % (Auto) Neut # (Auto) Lymph # (Auto) [place] # (Auto) Eos # (Auto) Baso # (Auto) Immature Gran # (Auto) PT 10.1 INR 1.0 APTT 23.4 PTT Ratio 0.9 Sodium Potassium Chloride Carbon Dioxide Anion Gap BUN Creatinine Est Cr Clr Drug Dosing Est GFR ( Amer) Est GFR (Non-Af Amer) BUN/Creatinine Ratio Glucose Lactate 1.0 Calcium Magnesium Total Bilirubin AST ALT Alkaline Phosphatase Troponin I Total Protein Albumin Globulin Albumin/Globulin Ratio Procalcitonin Urine Color Urine Appearance Urine pH Ur Specific [place] Urine Protein Urine Glucose (UA) Urine Ketones Urine Blood Urine Nitrite Urine Bilirubin Urine Urobilinogen Ur Leukocyte Esterase Stl C. diff Tox B Gene COVID-19 Eval Order CovFluRsv at [facility] SARS-CoV-2 (PCR) Influenza Type A (PCR) Influenza Type B (PCR) RSV (RT-PCR) 06/18/20 06/18/20 06/18/20 10:57 12:15 14:58 WBC RBC Hgb Hct MCV MCH MCHC RDW Std Deviation RDW Coeff of [place] Plt Count MPV Immature Gran % (Auto) Neut % (Auto) Lymph % (Auto) [place] % (Auto) Eos % (Auto) Baso % (Auto) Neut # (Auto) Lymph # (Auto) [place] # (Auto) Eos # (Auto) Baso # (Auto) Immature Gran # (Auto) PT INR APTT PTT Ratio Sodium Potassium Chloride Carbon Dioxide Anion Gap BUN Creatinine Est Cr Clr Drug Dosing Est GFR ( Amer) Est GFR (Non-Af Amer) BUN/Creatinine Ratio Glucose Lactate Calcium Magnesium Total Bilirubin AST ALT Alkaline Phosphatase Troponin I Total Protein Albumin Globulin Albumin/Globulin Ratio Procalcitonin Urine Color Yellow Urine Appearance Clear Urine pH 6.5 Ur Specific [place] 1.030 Urine Protein Negative Urine Glucose (UA) Negative Urine Ketones 1+ H Urine Blood Negative Urine Nitrite Negative Urine Bilirubin Negative Urine Urobilinogen Negative Ur Leukocyte Esterase Negative Stl C. diff Tox B Gene Negative Cdiff Gene COVID-19 Eval Order SARS-CoV-2 (PCR) NEGATIVE Influenza Type A (PCR) Negative Influenza Type B (PCR) Negative RSV (RT-PCR) Negative 06/18/20 16:49 WBC RBC Hgb Hct MCV MCH MCHC RDW Std Deviation RDW Coeff of [place] Plt Count MPV Immature Gran % (Auto) Neut % (Auto) Lymph % (Auto) [place] % (Auto) Eos % (Auto) Baso % (Auto) Neut # (Auto) Lymph # (Auto) [place] # (Auto) Eos # (Auto) Baso # (Auto) Immature Gran # (Auto) PT INR APTT PTT Ratio Sodium Potassium Chloride Carbon Dioxide Anion Gap BUN Creatinine Est Cr Clr Drug Dosing Est GFR ( Amer) Est GFR (Non-Af Amer) BUN/Creatinine Ratio Glucose Lactate Calcium Magnesium Total Bilirubin AST ALT Alkaline Phosphatase Troponin I 0.046 H* Total Protein Albumin Globulin Albumin/Globulin Ratio Procalcitonin Urine Color Urine Appearance Urine pH Ur Specific [place] Urine Protein Urine Glucose (UA) Urine Ketones Urine Blood Urine Nitrite Urine Bilirubin Urine Urobilinogen Ur Leukocyte Esterase Stl C. diff Tox B Gene COVID-19 Eval Order SARS-CoV-2 (PCR) Influenza Type A (PCR) Influenza Type B (PCR) RSV (RT-PCR) Diagnostic Findings Chest X-Ray 06/18/20 10:12 SINGLE VIEW CHEST CLINICAL HISTORY: Sepsis. FINDINGS: An AP, portable, upright chest radiograph is compared to study dated 05/03/2020. The heart is top normal for projection noting atherosclerotic calcification of the thoracic aorta. Chronic interstitial thickening is similar to previous. There are low lung volumes with bibasilar scarring/atelectasis. No airspace consolidation or large pleural effusion is identified. No pneumothorax is seen. The skeletal structures are osteopenic. The bony thorax is grossly intact. Degenerative change is seen throughout the thoracic spine. IMPRESSION: No active disease in the chest. ACT 112: Negative or not required by law. Electronically signed by: Dave Maradiaga M.D. 06/18/2020 10:41 AM Abdomen/Pelvis CT 06/18/20 10:30 CT OF THE ABDOMEN AND PELVIS WITH CONTRAST CLINICAL HISTORY: Fever. Lower abdominal pain. COMPARISON STUDY: CT of the abdomen and pelvis May 29, 2018. TECHNIQUE: Following IV administration of 94 mL of Optiray-320, axial images of the abdomen and pelvis were obtained from the lung bases to the proximal femurs. Images were reviewed in the axial, sagittal, and coronal planes. IV contrast was administered without complication. Automated exposure control was utilized for the study. A dose lowering technique was utilized adhering to the principles of ALARA. CT DOSE: 474.39 mGycm FINDINGS: Mild cardiomegaly is noted. Subpleural opacities favor atelectasis. Subpleural cystic change within the lower lobes is noted. This is chronic. No pneumatosis, free air or portal venous gas is present. There is a small hiatal hernia. The liver, spleen, adrenal glands and pancreas are unremarkable. There is no biliary or pancreatic ductal dilatation. Note is made of a 2.2 cm left renal cyst. There is no evidence for a bowel obstruction. There is colonic diverticulosis with evidence for acute diverticulitis. Note is made of wall thickening of the distal sigmoid colon and the rectum as well as the ascending colon. There is minimal adjacent infiltration. The appendix is normal. There is no free air or abscess. Note is made of minimal skin thickening and subcutaneous infiltration of the right anterior abdominal wall. There is a tiny 2.9 x 0.5 cm fluid collection overlying the abdominal wall musculature. Major vasculature is patent. There are no suspicious osseous lesions. 2.8 cm water attenuation left adnexal lesion is unchanged. This favors a cyst. Left arthroplasty is noted. IMPRESSION: 1. Wall thickening of the distal sigmoid colon, rectum and right colon. This represents a nonspecific colitis. No free air or abscess. 2. Colonic diverticulosis without evidence for acute diverticulitis. 3. Minimal skin thickening and subcutaneous infiltration with a tiny right abdominal wall fluid collection, measuring 2.9 x 0.5 cm. This favors postsurgical change. This likely reflects a seroma. ACT 112: Negative or not required by law. Electronically signed by: Enrique Garcia M.D. 06/18/2020 11:[address] 06/18/20 14:24 CT SCAN OF THE CHEST WITHOUT IV CONTRAST CLINICAL HISTORY: Hypoxia. COMPARISON STUDY: Chest x-ray dated 06/18/2020. CT angiogram of the neck dated 12/02/2016. TECHNIQUE: CT scan of the thorax was performed from the thoracic inlet to the upper abdomen. Images are reviewed in the axial, sagittal, and coronal planes. IV contrast was not administered for this examination as per the referring clinician. A dose lowering technique was utilized adhering to the principles of ALARA. CT DOSE: 344.12 mGycm FINDINGS: Thyroid: The thyroid gland is enlarged and heterogeneous. Low-attenuation nodules measure up to 2.1 cm. These are unchanged dating back to 2018 and of low suspicion. Thoracic aorta: There is atherosclerotic calcification of the thoracic aorta, which is normal in caliber and demonstrates bovine variant arch anatomy. Heart: The heart is mildly enlarged and without pericardial effusion. There are coronary artery calcifications. Lungs and pleural spaces: There is bibasilar scarring/atelectasis. There is no airspace consolidation typical for pneumonia or pleural effusion. The trachea and central airways are clear. A 4 mm low suspicion pleural-based nodule in the right upper lobe lung the major fissure as seen on image #99. Mediastinum: There is no mediastinal lymphadenopathy. Susie: Not well assessed without IV contrast. Axillae: There is no axillary lymphadenopathy. Upper abdomen: There is a small hiatal hernia. A 2.2 cm cyst arises from the upper pole of left kidney. There is excreted contrast within the partially imaged renal collecting systems. Skeletal structures: The skeletal structures are osteopenic. Degenerative change and mild kyphoscoliosis is noted in the thoracic spine. No lytic or blastic bony lesions are seen. IMPRESSION: 1. There is no airspace consolidation typical for pneumonia or pleural effusion. 2. Scarring/atelectasis is noted at the lung bases. 3. Mild cardiac enlargement. 4. Additional findings as above. ACT 112: Negative or not required by law. Electronically signed by: Dave Maradiaga M.D. 06/18/2020 3:41 PM EKG - my reading - NSR, mild T wave inversions inferior leads Code Status & VTE Plan Code Status full VTE Prophylaxis Plan VTE Prophylaxis will be ordered: Yes PG Care Time/CCT Total # of Minutes Spent Total Time Spent with Patient: Total time spent is greater than 50% in coordination of care (as documented) at patient's floor/unit and/or counseling patient: Coding Level of Care Code 88421 Initial Inpt Care Lvl 3 Diagnoses Colitis K52.9 Hypoxia R09.02 Suspected COVID-19 virus infection Z20.822 Elevated troponin R77.8 Hypokalemia E87.6 Dyslipidemia E78.5 Hypertension I10 Hypertension type: essential hypertension GERD (gastroesophageal reflux disease) K21.9 Esophagitis presence: esophagitis presence not specified Glaucoma H40.9 DVT prophylaxis Z29.9 (1) GERD (gastroesophageal reflux disease) Esophagitis presence: esophagitis presence not specified Qualified Code(s): K21.9 - Gastro-esophageal reflux disease without esophagitis (2) Hypertension Hypertension type: essential hypertension Qualified Code(s): I10 - Essential (primary) hypertension
--- NOTE | 2020-06-18 13:45 | Emergency Department Note ---
History of Present Illness General Chief Complaint: Illness Stated Complaint: ABDOMINAL PAIN, Time Seen by Provider: 06/18/20 10:11 History of Present Illness Provider Complaint: abdominal pain Onset (ago): 4 day(s) Pain Consistency: intermittent Location: diffuse Severity: moderate Maximum Pain Intensity: 5 Current Pain Intensity: 5 Quality: + cramping Relieved By: + nothing Exacerbated By: + nothing Context: no foreign travel, no possible food poisoning, no sick contacts, no recent antibiotic use and no recent surgery/procedure Associated Symptoms: + nausea, + diarrhea and + fever; no vomiting, no chills, no constipation, no dysuria, no hematemesis, no hematochezia, no melena, no hematuria, no anorexia, no syncope, no headache, no back pain, no chest pain and no breathing difficulty Home Medications Medication Instructions Recorded Confirmed Type latanoprost 1 drp [facility]B 12/09/17 06/18/20 History omeprazole 20 mg PO [facility] 12/09/17 06/18/20 History amlodipine 2.5 mg PO [facility] 04/20/18 06/18/20 History lisinopril 30 mg PO 04/20/18 06/18/20 History aspirin [Aspir-81] 81 mg PO [facility] 01/03/19 06/18/20 History losartan 100 mg PO DAILY 06/18/20 06/18/20 History Allergies Allergy/AdvReac Type Severity Reaction Status Date / Time gluten AdvReac Intermediate Gastrointestinal Verified 06/18/20 11:07 Upset lactose AdvReac Intermediate Gastrointestinal Verified 06/18/20 11:07 Upset promethazine AdvReac Intermediate GI SYMPTOMS Verified 06/18/20 11:07 [id number] Reductase AdvReac Mild joint pain Verified 06/18/20 11:07 Inhibitor Past Med/Surg History Medical History GERD (gastroesophageal reflux disease) History of colitis Hyperlipidemia Hypertension Nausea and vomiting after administration of anesthetic agent Stroke 5 + years ago - no residual effects > doesn't follow neuro TIA (transient ischemic attack) listed above but pt reports was just a stroke one incident Urinary incontinence NIGHTTIME ISSUE Surgical History History of bilateral cataract extraction History of colonoscopy History of left hip replacement 05/27/2018 [place] History of left inguinal hernia repair History of total left knee replacement Hx of inguinal hernia surgery (01/10/19) Open Right Indirect Inguinal Hernia Repair Without Mesh, Lipoma of Round Ligament Dr. Pittman 01/10/19 S/P excision of lipoma (05/09/20) Right Upper Quadrant Excision of Abdominal Wall Lipoma Dr. Pittman Family History Mother , Mother age 44 of liver cancer. 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 Beliefs That Will Affect Care: None marital status: Current Living Situation: Spouse current occupational status: unemployed Feels Safe at Home: Yes Assistive Devices: Glasses Review of Systems A total of 10 systems reviewed and were otherwise negative Physical Exam Vital Signs: Vital Signs - 24 hr 06/18/20 09:55 06/18/20 10:34 06/18/20 10:58 Temperature 37.8 C H Temperature Source Temporal Artery Sc an Pulse Rate 97 H 89 Pulse Rate from Sp O2 Sensor Respiratory Rate 20 19 Respiratory Effort / Characteristics Non-Labored Sponta neous Respiratory Depth Normal Respiratory Patter n Regular Blood Pressure 130/94 Blood Pressure Milena n 106 Blood Pressure Pos ition Sitting Pulse Oximetry 91 88 L Oxygen Delivery Me thod Room Air Room Air Oxygen Flow Rate Sepsis Recent Feve r Within 48 Hours No Sepsis New/Unexpla ined Change in Men joaquim Status N/A Sepsis Action Take n by Nursing No Action Required 06/18/20 11:00 06/18/20 11:01 06/18/20 11:25 Temperature Temperature Source Pulse Rate 82 83 Pulse Rate from Sp O2 Sensor 82 83 Respiratory Rate 20 21 Respiratory Effort / Characteristics Non-Labored Respiratory Depth Respiratory Patter n Blood Pressure 132/82 Blood Pressure Milena n 98 Blood Pressure Pos ition Pulse Oximetry 90 91 Oxygen Delivery Me thod Oxygen Flow Rate Sepsis Recent Feve r Within 48 Hours Sepsis New/Unexpla ined Change in Men joaquim Status Sepsis Action Take n by Nursing 06/18/20 11:30 06/18/20 12:01 06/18/20 12:18 Temperature Temperature Source Pulse Rate 78 77 Pulse Rate from Sp O2 Sensor 78 78 77 Respiratory Rate 24 22 Respiratory Effort / Characteristics Respiratory Depth Respiratory Patter n Blood Pressure 126/85 142/84 H Blood Pressure Milena n 98 103 Blood Pressure Pos ition Pulse Oximetry 98 94 96 Oxygen Delivery Me thod Oxygen Flow Rate 2 Sepsis Recent Feve r Within 48 Hours Sepsis New/Unexpla ined Change in Men joaquim Status Sepsis Action Take n by Nursing 06/18/20 12:30 06/18/20 13:00 06/18/20 13:01 Temperature Temperature Source Pulse Rate 77 70 70 Pulse Rate from Sp O2 Sensor 76 71 Respiratory Rate 24 22 18 Respiratory Effort / Characteristics Respiratory Depth Respiratory Patter n Blood Pressure 123/83 122/82 Blood Pressure Milena n 96 95 Blood Pressure Pos ition Pulse Oximetry 97 98 Oxygen Delivery Me thod Oxygen Flow Rate 2 Sepsis Recent Feve r Within 48 Hours Sepsis New/Unexpla ined Change in Men joaquim Status Sepsis Action Take n by Nursing 06/18/20 13:30 06/18/20 13:31 Temperature Temperature Source Pulse Rate 71 71 Pulse Rate from Sp O2 Sensor 73 71 Respiratory Rate 18 19 Respiratory Effort / Characteristics Respiratory Depth Respiratory Patter n Blood Pressure 126/86 Blood Pressure Milena n 99 Blood Pressure Pos ition Pulse Oximetry 96 96 Oxygen Delivery Me thod Oxygen Flow Rate Sepsis Recent Feve r Within 48 Hours Sepsis New/Unexpla ined Change in Men joaquim Status Sepsis Action Take n by Nursing Physical Exam: Physical Exam GENERAL: She is oriented to person, place, and time. She appears well-developed and well-nourished. She does not appear distressed. HENT: Exam performed. -Head: Normocephalic and atraumatic. -Right Ear: External ear normal. No mastoid tenderness. -Left Ear: External ear normal. No mastoid tenderness. -Mouth/Throat: The oropharynx is clear and moist. No trismus in the jaw. No dental abscesses or uvula swelling. No oropharyngeal exudate or tonsillar abscesses. EYES: Conjunctivae and EOM are normal. Pupils are equal, round, and reactive to light. Right eye exhibits no discharge. Left eye exhibits no discharge. No scleral icterus. NECK: Normal range of motion. Neck supple. No JVD present. No spinous process tenderness present. No carotid bruit present. No rigidity. No tracheal deviation and normal range of motion present. No Brudzinski's sign and no Kernig's sign noted. CV: Normal rate, regular rhythm, normal heart sounds and intact distal pulses. There is no peripheral edema. Palpable radial pulses bue. PULM/CHEST: Effort normal and breath sounds normal. No respiratory distress. No stridor. She has no wheezes. She has no rales. -Chest Wall: She exhibits no tenderness. ABD: The abdomen is soft. Bowel sounds are normal. She has no distension. No mass is present. There is tenderness to the epigastric area. There is no rebound, no guarding, no Alvarado's sign and no tenderness at McBurney's point. Rovsig negative MUSC/SKEL: Normal range of motion. There is no peripheral edema, tenderness or deformity. LYMPH: No cervical adenopathy. NEURO: She is alert and oriented to person, place, and time. She has normal strength. No cranial nerve deficit or sensory deficit. Coordination and gait normal. GCS eye subscore is 4. GCS verbal subscore is 5. GCS motor subscore is 6. Cerebellar tests wnl. SKIN: Skin is warm and dry. She is not diaphoretic. PSYCH: She has a normal mood and affect. Behavior is normal. Judgment and thought content normal. Course Course 1011: The patient was evaluated in room A4. A complete history and physical exam was performed Cardiac monitoring: An order was placed for continuous cardiac monitoring. The monitor shows a rate of 80 with sinus rhythm Patient was seen in full airborne precautions. Patient was seen in N95's, g loves, gowns, face shield by myself and staff. 1236: Vital signs stable. Patient has been unable to give a urine or stool sample to this point. Labs are within normal limits with exception of mildly elevated troponin of 0.05. Troponin has been elevated in the past in 2018 of two 0.046. Patient's creatinine is within normal limits and EKG shows no ST segment changes. Covid screen negative. Procalcitonin negative. Lactic acid within normal limits. Imaging within normal limits. Discussed case with [facility] hospitalist Dr. Ly and both he and I agree that the patient would benefit from inpatient admission for IV fluids and to follow-up on urine blood and stool cultures. Is thought that the elevation of troponin is due to possible demand ischemia or dehydration and he will trend the troponins on the floor. Administered Medications Sodium Chloride (Nss 1000ml) 1,000 mls @ 125 mls/hr IV .Q8H ISABEL Stop: 07/18/20 12:44 Last Admin: 06/18/20 13:06 Dose: 125 mls/hr Documented by: [id number] Discontinued Medications Acetaminophen (Acetaminophen 1000 Mg/100 Ml Iv) Confirm Administered Dose 1,000 mg IV .STK-MED ONE Stop: 06/18/20 10:33 Last Admin: 06/18/20 10:55 Dose: Not Given Documented by: [id number] Acetaminophen (Ofirmev) 1,000 mg in 100 mls @ 400 mls/hr IV NOW STA Stop: 06/18/20 10:45 Last Infusion: 06/18/20 11:46 Dose: 0 mls/hr Documented by: [id number] Admin: 06/18/20 10:54 Dose: 400 mls/hr Documented by: [id number] Sodium Chloride (Nss 1000ml) 500 mls @ 999 mls/hr IV .Q31M ONE Stop: 06/18/20 12:52 Last Infusion: 06/18/20 13:06 Dose: 0 mls/hr Documented by: [id number] Admin: 06/18/20 12:31 Dose: 999 mls/hr Documented by: [id number] Ioversol (Ioversol 100ml) 94 ml IV ONCE ONE Stop: 06/18/20 11:37 Last Admin: 06/18/20 11:37 Dose: 94 ml Documented by: [id number] Ondansetron HCl (Ondansetron Inj 2 Mg/Ml 2 Ml Vial) 4 mg IV NOW STA Stop: 06/18/20 10:32 Last Admin: 06/18/20 10:55 Dose: 4 mg Documented by: [id number] Ondansetron HCl (Ondansetron Inj 2 Mg/Ml 2 Ml Vial) Confirm Administered Dose 4 mg .ROUTE .STK-MED ONE Stop: 06/18/20 10:33 Last Admin: 06/18/20 10:55 Dose: Not Given Documented by: [id number] Medical Decision Making Laboratory Data Result diagrams: 06/18/20 10:47 06/18/20 10:47 Lab Results 06/18/20 06/18/20 06/18/20 Range/Units 10:47 10:47 10:47 WBC 5.00 (4.8-10.8) K/uL RBC 4.98 (4.2-5.4) M/uL Hgb 14.6 (12.0-16.0) g/dL Hct 44.2 (37-47) % MCV 88.8 (80-100) fL MCH 29.3 (25-34) pg MCHC 33.0 (32-36) g/dL RDW Std Deviation 45.8 (36.4-46.3) fL RDW Coeff of Marion 14.0 (11.5-14.5) % Plt Count 219 (130-400) K/uL MPV 10.0 (7.4-10.4) fL Immature Gran % (Auto) 0.4 % Neut % (Auto) 63.0 % Lymph % (Auto) 22.4 % Kidder % (Auto) 11.0 % Eos % (Auto) 3.0 % Baso % (Auto) 0.2 % Neut # (Auto) 3.15 (1.4-6.5) K/uL Lymph # (Auto) 1.12 L (1.2-3.4) K/uL Kidder # (Auto) 0.55 (0.11-0.59) K/uL Eos # (Auto) 0.15 (0-0.5) K/uL Baso # (Auto) 0.01 (0-0.2) K/uL Immature Gran # (Auto) 0.02 (0.00-0.02) K/uL PT (9.0-12.0) Seconds INR (0.9-1.1) APTT (21.0-31.0) Seconds PTT Ratio Sodium 140 (136-145) mmol/L Potassium 3.4 L (3.5-5.1) mmol/L Chloride 106 (98-107) mmol/L Carbon Dioxide 31 (21-32) mmol/L Anion Gap 3.0 (3-11) BUN 14 (7-18) mg/dl Creatinine 0.79 (0.6-1.2) mg/dl Est Cr Clr Drug Dosing 48.2 ml/min Est GFR ( Amer) 82.5 Est GFR (Non-Af Amer) 71.2 BUN/Creatinine Ratio 17.9 (10-20) Glucose 83 (70-99) mg/dl Lactate (0.4-2.0) mmol/L Calcium 9.7 (8.5-10.1) mg/dl Magnesium 2.2 (1.8-2.4) mg/dl Total Bilirubin 0.6 (0.2-1) mg/dl AST 14 L (15-37) U/L ALT 24 (12-78) U/L Alkaline Phosphatase 95 (45-117) U/L Troponin I 0.050 H* (0-0.045) ng/ml Total Protein 6.5 (6.4-8.2) gm/dl Albumin 3.3 L (3.4-5.0) gm/dl Globulin 3.2 (2.5-4.0) gm/dl Albumin/Globulin Ratio 1.0 (0.9-2) Procalcitonin < 0.05 (0-0.5) ng/ml Urine Color Urine Appearance (Clear) Urine pH (4.5-7.5) Ur Specific [place] (1.000-1.030) Urine Protein (Negative) Urine Glucose (UA) (Negative) Urine Ketones (Negative) Urine Blood (Negative) Urine Nitrite (Negative) Urine Bilirubin (Negative) Urine Urobilinogen (Negative) Ur Leukocyte Esterase (Negative) COVID-19 Eval Order SARS-CoV-2 (PCR) (Negative) Influenza Type A (PCR) (Neg) Influenza Type B (PCR) (Neg) RSV (RT-PCR) (Neg) 06/18/20 06/18/20 06/18/20 Range/Units 10:47 10:47 10:57 WBC (4.8-10.8) K/uL RBC (4.2-5.4) M/uL Hgb (12.0-16.0) g/dL Hct (37-47) % MCV (80-100) fL MCH (25-34) pg MCHC (32-36) g/dL RDW Std Deviation (36.4-46.3) fL RDW Coeff of Marion (11.5-14.5) % Plt Count (130-400) K/uL MPV (7.4-10.4) fL Immature Gran % (Auto) % Neut % (Auto) % Lymph % (Auto) % Kidder % (Auto) % Eos % (Auto) % Baso % (Auto) % Neut # (Auto) (1.4-6.5) K/uL Lymph # (Auto) (1.2-3.4) K/uL Kidder # (Auto) (0.11-0.59) K/uL Eos # (Auto) (0-0.5) K/uL Baso # (Auto) (0-0.2) K/uL Immature Gran # (Auto) (0.00-0.02) K/uL PT 10.1 (9.0-12.0) Seconds INR 1.0 (0.9-1.1) APTT 23.4 (21.0-31.0) Seconds PTT Ratio 0.9 Sodium (136-145) mmol/L Potassium (3.5-5.1) mmol/L Chloride (98-107) mmol/L Carbon Dioxide (21-32) mmol/L Anion Gap (3-11) BUN (7-18) mg/dl Creatinine (0.6-1.2) mg/dl Est Cr Clr Drug Dosing ml/min Est GFR ( Amer) Est GFR (Non-Af Amer) BUN/Creatinine Ratio (10-20) Glucose (70-99) mg/dl Lactate 1.0 (0.4-2.0) mmol/L Calcium (8.5-10.1) mg/dl Magnesium (1.8-2.4) mg/dl Total Bilirubin (0.2-1) mg/dl AST (15-37) U/L ALT (12-78) U/L Alkaline Phosphatase (45-117) U/L Troponin I (0-0.045) ng/ml Total Protein (6.4-8.2) gm/dl Albumin (3.4-5.0) gm/dl Globulin (2.5-4.0) gm/dl Albumin/Globulin Ratio (0.9-2) Procalcitonin (0-0.5) ng/ml Urine Color Urine Appearance (Clear) Urine pH (4.5-7.5) Ur Specific [place]on (1.000-1.030) Urine Protein (Negative) Urine Glucose (UA) (Negative) Urine Ketones (Negative) Urine Blood (Negative) Urine Nitrite (Negative) Urine Bilirubin (Negative) Urine Urobilinogen (Negative) Ur Leukocyte Esterase (Negative) COVID-19 Eval Order CovFluRsv at [facility] SARS-CoV-2 (PCR) (Negative) Influenza Type A (PCR) (Neg) Influenza Type B (PCR) (Neg) RSV (RT-PCR) (Neg) 06/18/20 06/18/20 Range/Units 10:57 12:15 WBC (4.8-10.8) K/uL RBC (4.2-5.4) M/uL Hgb (12.0-16.0) g/dL Hct (37-47) % MCV (80-100) fL MCH (25-34) pg MCHC (32-36) g/dL RDW Std Deviation (36.4-46.3) fL RDW Coeff of Marion (11.5-14.5) % Plt Count (130-400) K/uL MPV (7.4-10.4) fL Immature Gran % (Auto) % Neut % (Auto) % Lymph % (Auto) % Kidder % (Auto) % Eos % (Auto) % Baso % (Auto) % Neut # (Auto) (1.4-6.5) K/uL Lymph # (Auto) (1.2-3.4) K/uL Kidder # (Auto) (0.11-0.59) K/uL Eos # (Auto) (0-0.5) K/uL Baso # (Auto) (0-0.2) K/uL Immature Gran # (Auto) (0.00-0.02) K/uL PT (9.0-12.0) Seconds INR (0.9-1.1) APTT (21.0-31.0) Seconds PTT Ratio Sodium (136-145) mmol/L Potassium (3.5-5.1) mmol/L Chloride (98-107) mmol/L Carbon Dioxide (21-32) mmol/L Anion Gap (3-11) BUN (7-18) mg/dl Creatinine (0.6-1.2) mg/dl Est Cr Clr Drug Dosing ml/min Est GFR ( Amer) Est GFR (Non-Af Amer) BUN/Creatinine Ratio (10-20) Glucose (70-99) mg/dl Lactate (0.4-2.0) mmol/L Calcium (8.5-10.1) mg/dl Magnesium (1.8-2.4) mg/dl Total Bilirubin (0.2-1) mg/dl AST (15-37) U/L ALT (12-78) U/L Alkaline Phosphatase (45-117) U/L Troponin I (0-0.045) ng/ml Total Protein (6.4-8.2) gm/dl Albumin (3.4-5.0) gm/dl Globulin (2.5-4.0) gm/dl Albumin/Globulin Ratio (0.9-2) Procalcitonin (0-0.5) ng/ml Urine Color Yellow Urine Appearance Clear (Clear) Urine pH 6.5 (4.5-7.5) Ur Specific [place]on 1.030 (1.000-1.030) Urine Protein Negative (Negative) Urine Glucose (UA) Negative (Negative) Urine Ketones 1+ H (Negative) Urine Blood Negative (Negative) Urine Nitrite Negative (Negative) Urine Bilirubin Negative (Negative) Urine Urobilinogen Negative (Negative) Ur Leukocyte Esterase Negative (Negative) COVID-19 Eval Order SARS-CoV-2 (PCR) NEGATIVE (Negative) Influenza Type A (PCR) Negative (Neg) Influenza Type B (PCR) Negative (Neg) RSV (RT-PCR) Negative (Neg) Imaging Data Radiologist's Impression: Chest X-Ray 06/18/20 10:12 SINGLE VIEW CHEST CLINICAL HISTORY: Sepsis. FINDINGS: An AP, portable, upright chest radiograph is compared to study dated 05/03/2020. The heart is top normal for projection noting atherosclerotic calcification of the thoracic aorta. Chronic interstitial thickening is similar to previous. There are low lung volumes with bibasilar scarring/atelectasis. No airspace consolidation or large pleural effusion is identified. No pneumothorax is seen. The skeletal structures are osteopenic. The bony thorax is grossly intact. Degenerative change is seen throughout the thoracic spine. IMPRESSION: No active disease in the chest. ACT 112: Negative or not required by law. Electronically signed by: Dave Maradiaga M.D. 06/18/2020 10:41 AM Abdomen/Pelvis CT 06/18/20 10:30 CT OF THE ABDOMEN AND PELVIS WITH CONTRAST CLINICAL HISTORY: Fever. Lower abdominal pain. COMPARISON STUDY: CT of the abdomen and pelvis May 29, 2018. TECHNIQUE: Following IV administration of 94 mL of Optiray-320, axial images of the abdomen and pelvis were obtained from the lung bases to the proximal femurs. Images were reviewed in the axial, sagittal, and coronal planes. IV contrast was administered without complication. Automated exposure control was utilized for the study. A dose lowering technique was utilized adhering to the principles of ALARA. CT DOSE: 474.39 mGycm FINDINGS: Mild cardiomegaly is noted. Subpleural opacities favor atelectasis. Subpleural cystic change within the lower lobes is noted. This is chronic. No pneumatosis, free air or portal venous gas is present. There is a small hiatal hernia. The liver, spleen, adrenal glands and pancreas are unremarkable. There is no biliary or pancreatic ductal dilatation. Note is made of a 2.2 cm left renal cyst. There is no evidence for a bowel obstruction. There is colonic diverticulosis with evidence for acute diverticulitis. Note is made of wall thickening of the distal sigmoid colon and the rectum as well as the ascending colon. There is minimal adjacent infiltration. The appendix is normal. There is no free air or abscess. Note is made of minimal skin thickening and subcutaneous infiltration of the right anterior abdominal wall. There is a tiny 2.9 x 0.5 cm fluid collection overlying the abdominal wall musculature. Major vasculature is patent. There are no suspicious osseous lesions. 2.8 cm water attenuation left adnexal lesion is unchanged. This favors a cyst. Left arthroplasty is noted. IMPRESSION: 1. Wall thickening of the distal sigmoid colon, rectum and right colon. This represents a nonspecific colitis. No free air or abscess. 2. Colonic diverticulosis without evidence for acute diverticulitis. 3. Minimal skin thickening and subcutaneous infiltration with a tiny right abdominal wall fluid collection, measuring 2.9 x 0.5 cm. This favors postsurgical change. This likely reflects a seroma. ACT 112: Negative or not required by law. Electronically signed by: Enrique Garcia M.D. 06/18/2020 11:59 AM ECG Data Indication: abdominal pain Rate (beats per minute): 86 Rhythm: normal sinus Findings: no ST depression, no ST elevation and no prolonged QT MDM Narrative 1011: The patient was evaluated in room A4. A complete history and physical exam was performed Cardiac monitoring: An order was placed for continuous cardiac monitoring. The monitor shows a rate of 80 with sinus rhythm Patient was seen in full airborne precautions. Patient was seen in N95's, gloves, gowns, face shield by myself and staff. 1236: Vital signs stable. Patient has been unable to give a urine or stool sample to this point. Labs are within normal limits with exception of mildly elevated troponin of 0.05. Troponin has been elevated in the past in 2018 of two 0.046. Patient's creatinine is within normal limits and EKG shows no ST segment changes. Covid screen negative. Procalcitonin negative. Lactic acid within normal limits. Imaging within normal limits. Discussed case with [facility] hospitalist Dr. Ly and both he and I agree that the patient would benefit from inpatient admission for IV fluids and to follow-up on urine blood and stool cultures. Is thought that the elevation of troponin is due to possible demand ischemia or dehydration and he will trend the troponins on the floor. Impression & Plan Elevated troponin, Abdominal pain Discharge Plan Visit Data Chief Complaint: Illness Stated Complaint: ABDOMINAL PAIN, ED Provider: Rikki Shearer Discharge Problem: Elevated troponin, Abdominal pain Patient Disposition: Being Evaluated by Hospitalist Forms Stand Alone Forms: My [facility] Prescriptions Prescriptions: No Action aspirin [Aspir-81] 81 mg tablet,delayed release (DR/EC) 81 mg PO QAM RF: 0 latanoprost 0.005 % drops 1 drp OPB HS RF: 0 omeprazole 20 mg Tablet,Delayed Release (Dr/Ec) 20 mg PO QAM RF: 0 amlodipine 2.5 mg Tablet 2.5 mg PO QAM RF: 0 lisinopril 30 mg Tablet 30 mg PO HS RF: 0 losartan 100 mg Tablet 100 mg PO DAILY RF: 0 Referrals Referrals: Sully Geiger CRNP [Primary Care Provider] - Discharge Problem: Abdominal pain Qualifiers: Abdominal location: unspecified location Qualified Code(s): R10.9 - Unspecified abdominal pain
--- NOTE | 2020-06-18 14:46 | Electrocardiogram Report ---
Test Reason : Blood Pressure : / mmHG Vent. Rate : 086 BPM Atrial Rate : 086 BPM P-R Int : 144 ms QRS Dur : 082 ms QT Int : 366 ms P-R-T Axes : 035 -30 -08 degrees QTc Int : 437 ms Normal sinus rhythm Left axis deviation Possible Anterior infarct (cited on or before 18-JUN-2020) Abnormal ECG When compared with ECG of 03-MAY-2020 10:54, QRS axis Shifted left Inverted T waves have replaced nonspecific T wave abnormality in Inferior leads Confirmed by Haresh Bobo ([id number]) on 06/18/2020 2:45:50 PM Referred By: Confirmed By:Haresh Bobo
--- NOTE | 2020-06-18 15:42 | CT Scan Report ---
CT SCAN OF THE CHEST WITHOUT IV CONTRAST CLINICAL HISTORY: Hypoxia. COMPARISON STUDY: Chest x-ray dated 06/18/2020. CT angiogram of the neck dated 12/02/2016. TECHNIQUE: CT scan of the thorax was performed from the thoracic inlet to the upper abdomen. Images are reviewed in the axial, sagittal, and coronal planes. IV contrast was not administered for this ex amination as per the referring clinician. A dose lowering technique was utilized adhering to the ramon danika of SERJIO. CT DOSE: 344.12 mGycm FINDINGS: Thyroid: The thyroid gland is enlarged and heterogeneous. Low-attenuation nodules measure up to 2.1 c m. These are unchanged dating back to 2018 and of low suspicion. Thoracic aorta: There is atherosclerotic calcification of the thoracic aorta, which is normal in adriel leo and demonstrates bovine variant arch anatomy. Heart: The heart is mildly enlarged and without pericardial effusion. There are coronary artery calci fications. Lungs and pleural spaces: There is bibasilar scarring/atelectasis. There is no airspace consolidation typical for pneumonia or pleural effusion. The trachea and central airways are clear. A 4 mm low yobany picion pleural-based nodule in the right upper lobe lung the major fissure as seen on image #99. Mediastinum: There is no mediastinal lymphadenopathy. Susie: Not well assessed without IV contrast. Axillae: There is no axillary lymphadenopathy. Upper abdomen: There is a small hiatal hernia. A 2.2 cm cyst arises from the upper pole of left kidne y. There is excreted contrast within the partially imaged renal collecting systems. Skeletal structures: The skeletal structures are osteopenic. Degenerative change and mild kyphoscolio sis is noted in the thoracic spine. No lytic or blastic bony lesions are seen. IMPRESSION: 1. There is no airspace consolidation typical for pneumonia or pleural effusion. 2. Scarring/atelectasis is noted at the lung bases. 3. Mild cardiac enlargement. 4. Additional findings as above. ACT 112: Negative or not required by law. Electronically signed by: Dave Maradiaga M.D. 06/18/2020 3:41 PM
[2020-06-18] MEDS ORDERED: ACETAMINOPHEN 325 MG TAB PO PRN (15:54)
[2020-06-18] MEDS ORDERED: ONDANSETRON INJ 2 MG/ML 2 ML VIAL IV PRN (15:54)
[2020-06-18] MEDS: D5NSS + 20MEQ KCL 20 MEQ/1,000 ML BAG IV SCH (17:45)
[2020-06-18] MEDS: ADVANCED PROBIOTIC 1250 MG CAPSULE PO SCH (20:18)
[2020-06-18] MEDS: FAMOTIDINE 20 MG in SYRINGE 3 ML IV SCH (20:19)
[2020-06-18] MEDS ORDERED: LATANOPROST 0.005% OP SOLN 2.5 ML BTL OPB SCH (21:00)
[2020-06-19] MEDS: D5NSS + 20MEQ KCL 20 MEQ/1,000 ML BAG IV SCH (03:47)
[2020-06-19 07:33] LABS: Basophils # (auto) 0.01 K/uL (0-0.2); Basophils % (auto) 0.3 %; Eosinophils # (auto) 0.13 K/uL (0-0.5); Hematocrit (blood only) 35.6 % (37-47); Hemoglobin 11.9 g/dL (12.0-16.0); Immature Granulocytes # (auto) 0.01 K/uL (0.00-0.02); Immature Granulocytes % (auto) 0.3 %; Lymphocytes # (auto) 0.94 K/uL (1.2-3.4); Lymphocytes % (auto) 28.8 %; Mean Corpuscular Hemoglobin 29.5 pg (25-34); Mean Corpuscular Hgb Conc 33.4 g/dL (32-36); Mean Corpuscular Volume 88.3 fL (80-100); Monocytes # (auto) 0.63 K/uL (0.11-0.59); Monocytes % (auto) 19.3 %; Neutrophils # (auto) 1.54 K/uL (1.4-6.5); Neutrophils % (auto) 47.3 %; Platelet Count 190 K/uL (130-400); RDW Coefficient of Variation 14.2 % (11.5-14.5); RDW Standard Deviation 46.3 fL (36.4-46.3); Red Blood Count 4.03 M/uL (4.2-5.4); White Blood Count 3.26 K/uL (4.8-10.8)
[2020-06-19] MEDS: FAMOTIDINE 20 MG in SYRINGE 3 ML IV SCH (07:58)
[2020-06-19] MEDS: HEPARIN SOD 5,000 UNIT/0.5 ML VIAL SQ SCH ×2 (07:58→08:04)
[2020-06-19] MEDS: ADVANCED PROBIOTIC 1250 MG CAPSULE PO SCH (07:58)
--- NOTE | 2020-06-19 07:59 | Hospitalist Progress Note ---
Date of Service June 19, 2020 Assessment & Plan (1) Colitis: Severe GI illness beginning Wednesday. No blood or mucous. CT abdomen shows colitis. C diff returned negative. Rotavirus is negative. Stool culture sent. 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 COVID-19 is negative -- however, she is hypoxic and this coupled with infectious symptoms still concerning for possible COVID. It is well-documented in literature that a significant subgroup of patients with COVID often have severe GI symptoms in the early portion of the illness. The negative procal and lymphopenia on CBC support a viral etiology. In the end it is possible this is a nonspecific viral gastroenteritis. For that reason will place in airborne precautions as "PUI" and will retest for COVID in 1-2 days. Trial of colestipol to help bulk the stool and slow frequency. Lactinex. Clear liquid diet. IVF. Anti-emetics. (2) Hypoxia: No clubbing on exam to suggest chronic etiology. CXR with lower lobe opacities. CT chest obtained - no obvious viral-like pneumonia however. Consider repeat cxr in am. O2 via NC to keep sats >90%. Wean O2 as tolerated. See above re: repeat COVID testing. (3) Suspected COVID-19 virus infection: COVID-19 testing negative in ER (4) Elevated troponin: likely myocardial demand ischemia in setting of GI illness, dehydration, etc. repeat troponin not going up (5) Hypokalemia: replace, repeat level am. mag level wnl. (6) Dyslipidemia: (7) Hypertension: BPs normal without meds due to dehydration. Hold amlodipine, lisinopril, and losartan. (8) GERD (gastroesophageal reflux disease): pepcid 20mg IV BID (9) Glaucoma: cont drops (10) DVT prophylaxis: heparin 5000 BID fluids - D5NS with KCL at 100cc/hr Admission and Anticipated Discharge Date Admission Date: June 18, 2020 Results & Data Results & Data ([facility]) Vital Signs (Past 12 Hours) Vital Signs Temp Pulse Pulse Resp BP Pulse Ox 06/19/20 07:45 99.1 F 69 19 139/81 96 06/19/20 07:11 63 06/19/20 03:24 98.4 F 76 20 128/74 94 06/19/20 00:10 66 06/18/20 23:43 98.6 F 82 20 127/81 97 PG Care Time/CCT Total # of Minutes Spent Total Time Spent with Patient: Total time spent is greater than 50% in coordination of care (as documented) at patient's floor/unit and/or counseling patient: Coding Diagnoses Colitis K52.9 Hypoxia R09.02 Suspected COVID-19 virus infection Z20.822 Elevated troponin R77.8 Hypokalemia E87.6 Dyslipidemia E78.5 Hypertension I10 Hypertension type: essential hypertension GERD (gastroesophageal reflux disease) K21.9 Esophagitis presence: esophagitis presence not specified Glaucoma H40.9 DVT prophylaxis Z29.9 (1) Hypertension Hypertension type: essential hypertension Qualified Code(s): I10 - Essential (primary) hypertension (2) GERD (gastroesophageal reflux disease) Esophagitis presence: esophagitis presence not specified Qualified Code(s): K21.9 - Gastro-esophageal reflux disease without esophagitis
[2020-06-19] MEDS ORDERED: COLESTIPOL HCL 1 GM TAB PO SCH (08:00)
[2020-06-19 08:06] LABS: BUN Creatinine Ratio 12.3 (10-20); Calcium 8.7 mg/dl (8.5-10.1); Creatinine Clr Calc Pharmacy 62.5 ml/min; Est GFR (African American) 99.9; Est GFR (Non-African American) 86.2; Potassium 3.4 mmol/L (3.5-5.1)
[2020-06-19] MEDS ORDERED: ASPIRIN 81 MG ECTAB PO SCH (09:00)
[2020-06-19] MEDS ORDERED: POTASSIUM CHLORIDE CRTAB 20 MEQ TABCR PO STA (12:06)
--- NOTE | 2020-06-19 18:40 | Discharge Summary ---
Date of Service June 19, 2020 Admission HPI Per Admitting Provider 79yo female presents with diarrhea and abdominal pain beginning Wednesday morning. The pain is located in the lower abdomen - sharp, crampy. Lots of nausea but no emesis. Unable to eat or drink since the illness started. Drinking fluids makes the symptoms worse. has been sick with similar symptoms (abdominal pain, diarrhea). 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 Further, the admin secretary's spouse has also been ill. Diarrhea - last episode was this am. Too numerous to count episodes since the illness began. Nocturnal episodes as well. No blood in the stool. No mucous. No fever/chills but does have fever in the hospital at presentation (37.8). Has had achiness/myalgias but no loss of taste/smell, no cough, no cp, no dyspnea. Has had considerable fatigue. and his coworkers have not had respiratory symptoms either. During my admission assessment the patient's O2 sats were 88-90% in room air. The pleth was a perfect waveform. O2 was applied, 2 liters, with improvement in sats to 95%. Principal Diagnosis viral colitis Discharge Exam The patient appeared well Vital signs as documented. Lungs are clear to auscultation and appear unlabored Cardiac exam, Rhythm is regular.. No murmurs, rubs or gallops. Abdominal exam reveals normal bowel sounds, soft non tender, no masses Extremities are nonedematous and both pedal pulses are normal. Neurologic exam is alert and oriented, no focal loss of strength or sensation Skin is without bruises or rashes Psychologically is without concerns for anxiety or depression. Discharge Data Allergies Allergy/AdvReac Type Severity Reaction Status Date / Time gluten AdvReac Intermediate Gastrointestinal Verified 06/18/20 11:07 Upset lactose AdvReac Intermediate Gastrointestinal Verified 06/18/20 11:07 Upset promethazine AdvReac Intermediate GI SYMPTOMS Verified 06/18/20 11:07 Mrpjlaw-Zmz-Xtv Reductase AdvReac Mild joint pain Verified 06/18/20 11:07 Inhibitor Consultations 06/18/20 12:23 ED Decision to Admit Stat Ordered Studies 06/18/20 10:30 CT abd pelvis IV con only Stat 06/18/20 14:24 CT chest diagnostic wo con Stat Hospital Course (1) Colitis: Severe GI illness beginning Wednesday. now symptoms are resolved No blood or mucous. CT abdomen shows colitis. C diff returned negative. Rotavirus is negative. 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 COVID-19 is negative --briefly hypoxic now is without hypoxia, CT chest negative for infiltrates Trial of colestipol to help bulk the stool and slow frequency. pt is tolerate of oral intake, diarrhea has stopped, will use some flagyl for low fever and have short term follow up with pcp (2) Hypoxia: No clubbing on exam to suggest chronic etiology. CT chest obtained - no obvious viral-like pneumonia however. (3) Suspected COVID-19 virus infection: COVID-19 testing negative in ER (4) Elevated troponin: likely myocardial demand ischemia in setting of GI illness, dehydration, etc. repeat troponin not going up (5) Hypokalemia: replace, repeat level am. mag level wnl. (6) Dyslipidemia: (7) Hypertension: BPs normal without meds due to dehydration. amlodipine, lisinopril, and losartan at home now that she has been hydrated. (8) GERD (gastroesophageal reflux disease): omeprazole (9) Glaucoma: cont drops Total Time Total Time Spent Total Time Spent (In Minutes): It required greater than 30 minutes to prepare this patient for discharge Discharge Plan Discharge Items Patient Disposition: Home - Self-Care Reason For Visit: HYPOXIA, COLITIS/ENTERITIS Discharge Diagnosis: viral colitis Activity: Resume your previous activity Non-emergency contact: Primary Care Provider Call non-emergency contact if: you have any medication questions and your symptoms worsen Follow-up/Referrals: Sully Geiger CRNP [Primary Care Provider] - 06/25/20 12:20 pm (THIS WILL BE A TELEHEALTH VISIT.) Diet: Regular Diet Comment: eat yogurt or cottage cheese at least 3-5 xs a week Addtl Attending Provider Instructions: please rest and hydrate, if you develop a fever or cannot keep hydrated with diarrhea, please return to Hospital Pending Studies at Discharge: Yes Stand-Alone Forms: My [employer], Smoking Cessation Medications and DC Order Prescriptions: New colestipol [Colestid] 1 gram Tablet 1 g PO BID@0800,1800 Qty: 15 RF: 0 metronidazole [Flagyl] 500 mg tablet 500 mg PO TID Qty: 21 RF: 0 Continued aspirin [Aspir-81] 81 mg tablet,delayed release (DR/EC) 81 mg PO QAM RF: 0 latanoprost 0.005 % drops 1 drp OPB HS RF: 0 omeprazole 20 mg Tablet,Delayed Release (Dr/Ec) 20 mg PO QAM RF: 0 amlodipine 2.5 mg Tablet 2.5 mg PO QAM RF: 0 lisinopril 30 mg Tablet 30 mg PO HS RF: 0 losartan 100 mg Tablet 100 mg PO DAILY RF: 0 Discharge Orders: Discharge Order (Routine); Ordered 06/19/20 Ordered By: Leonidas Jin Admission Data Admit Date/Time: 06/18/20 14:24 Attending Provider: Leonidas Jin Admit Provider: Brian Ly Primary Care Provider: Sully Geiger Other Providers: Brian Ly Other Interventions: Discharge Summary Assessment (RN) Last Done: 06/19/20 12:56 Coding Level of Care Code D/C Day Management >30 mins Diagnoses Colitis K52.9 Hypoxia R09.02 Suspected COVID-19 virus infection Z20.822 Elevated troponin R77.8 Hypokalemia E87.6 Dyslipidemia E78.5 Hypertension I10 Hypertension type: essential hypertension GERD (gastroesophageal reflux disease) K21.9 Esophagitis presence: esophagitis presence not specified Glaucoma H40.9
== END 2020-06-19 14:06 | disposition home or self-care (01) | DRG 392 ==
LOC: ED 09:44 → SUATTDRO 14:24 → 2N 14:24 → OBSVTOIN 14:24 → INTOOBSV 14:24 → 2N 15:21

== ENCOUNTER 2021-09-05 09:49 | Observation (INO) ==
--- NOTE | 2021-07-30 14:19 | PAT Medication Instructions ---
Medication Instructions Date of Service July 30, 2021 Home Medications latanoprost 0.005 % eye drops 1 drp OPB HS omeprazole 20 mg tablet,delayed release 20 mg PO QAM amlodipine 2.5 mg tablet 2.5 mg PO QPM aspirin 81 mg tablet,delayed release (Aspir-) 81 mg PO QAM cholecalciferol (vitamin D3) 125 mcg (5,000 unit) tablet (Vitamin D3) 125 mcg PO QAM dorzolamide 2 % eye drops 1 drp OPHTHALMIC (EYE) HS losartan 50 mg tablet 50 mg PO QAM turmeric 400 mg capsule 400 mg PO BID STOP taking 2 weeks before surgery turmeric 400 mg capsule 400 mg PO BID DO NOT take the morning of surgery cholecalciferol (vitamin D3) 125 mcg (5,000 unit) tablet (Vitamin D3) 125 mcg PO QAM losartan 50 mg tablet 50 mg PO QAM Take morning of surgery With a small sip of water, OTHERWISE NOTHING TO EAT OR DRINK AFTER MIDNIGHT: omeprazole 20 mg tablet,delayed release 20 mg PO QAM aspirin 81 mg tablet,delayed release (Aspir-) 81 mg PO QAM (unless directed otherwise by surgeon) Take evening before surgery latanoprost 0.005 % eye drops 1 drp OPB HS amlodipine 2.5 mg tablet 2.5 mg PO QPM dorzolamide 2 % eye drops 1 drp OPHTHALMIC (EYE) HS Other Notes If you have any questions please call us at [phone] or [phone] or or [phone]
--- NOTE | 2021-08-04 13:17 | Anesthesiology Consultation ---
Date of Service August 04, 2021 Assessment & Plan (1) Encounter for pre-operative examination: Chart Review Chart Review: Acceptable Risk for Surgery (pending preop Covid testing results ) and Patient seen in Pre Admission Testing - Pt with chronic constipation- gets worse after anesthesia/surgery; encouraged to follow up with PCP re: chronic constipation and increased symptoms with anesthesia/surgery to see if preop bowel regiment would be beneficial. Surgeon aware of constipation issues per patient Per PAT appt on 08/04/21, patient denies any recent travel or large group activities. No known Covid positive exposures or Covid related symptoms. No known Covid infection in the past 90 days. Pt is NOT vaccinated for Covid. Preop Covid testing scheduled 09/03/21 = will await results. Educated on importance of self quarantining, social distancing and wearing mask in public for the patient one week prior to surgery and after Covid testing done RUQ abdominal mass exploration, lipoma excision 05/09/20= Done under GA with Grade 2 view with MAC #3. ETT #7.0. Atraumatic. History Surgery Operation Date: 09/05/21 10:00 Proposed Procedures p Right Total Knee Arthroplasty - Bassem Joyner, DO Height/Weight Height: 5 ft 2 in Weight: 59.3 kg Allergies Allergy/AdvReac Type Severity Reaction Status Date / Time Nywsmju-AAF-EoK Reductase Allergy Intermediate joint pain Verified 07/30/21 12:30 Inhibitor [Cqrcyht-Xwa-Oor Reductase Inhibitor] gluten AdvReac Intermediate Gastrointestinal Verified 07/30/21 12:30 Upset lactose AdvReac Intermediate Gastrointestinal Verified 07/30/21 12:30 Upset promethazine AdvReac Intermediate GI SYMPTOMS Verified 07/30/21 12:30 Medications Home Medications Medication Instructions Recorded Confirmed Last Taken latanoprost 0.005 % eye drops 1 drp OPB HS 12/09/17 08/04/21 05/08/20 20:30 omeprazole 20 mg tablet,delayed 20 mg PO QAM 12/09/17 08/04/21 05/09/20 05:30 release amlodipine 2.5 mg tablet 2.5 mg PO QPM 04/20/18 08/04/21 05/09/20 05:30 aspirin 81 mg tablet,delayed 81 mg PO QAM 01/03/19 08/04/21 05/09/20 05:30 release (Aspir-) cholecalciferol (vitamin D3) 125 125 mcg PO QAM 07/30/21 08/04/21 Unknown mcg (5,000 unit) tablet (Vitamin D3) dorzolamide 2 % eye drops 1 drp OPHTHALMIC (EYE) HS 07/30/21 08/04/21 Unknown losartan 50 mg tablet 50 mg PO QAM 07/30/21 08/04/21 Unknown turmeric 400 mg capsule 400 mg PO BID 07/30/21 08/04/21 Unknown Past Medical History Medical History GERD (gastroesophageal reflux disease) Well controlled and stable Glaucoma Follows routinely with eye doctor History of colitis Hx of IBS- constipation related Hyperlipidemia Hypertension Stroke 8 + years ago - no residual effects > doesn't follow neuro Urinary incontinence NIGHTTIME ISSUE Exercise / Class Metabolic Activity III < 4 Walking/Shop/Light housework (one flight of stairs- no chest pain, mild SOB (increased knee pain)) Past Family History Family History Mother , Mother age 44 of liver cancer. Liver cancer Father , Father age 66 of respiratory failure/COPD COPD (chronic obstructive pulmonary disease) Other No pertinent family history Past Surgical History Surgical History Family history of reaction to anesthesia DAUGHTER>EXTREME NAUSEA History of bilateral cataract extraction History of colonoscopy History of left hip replacement History of left inguinal hernia repair History of total left knee replacement Hx of inguinal hernia surgery (01/10/19) Open Right Indirect Inguinal Hernia Repair Without Mesh, Lipoma of Round Ligament Dr. Pittman 01/10/19 Nausea and vomiting after administration of anesthetic agent S/P excision of lipoma (05/09/20) Right Upper Quadrant Excision of Abdominal Wall Lipoma Dr. 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 No hx of seizures, MD. No hx of blood clots or blood transfusions Physical Exam Vital Signs VITALS BP 133/86 P 84 TEMP 98.2 SP02 94% RESP 16 Constitutional no acute distress ENMT Mouth: no TMJ clicking Thyromental Distance: > or= 3.5 Finger Breadths (3.5) Mallampati Class: III Neck + limited neck extension (minimal ) Respiratory normal respiratory effort; no respiratory distress Auscultation: lungs clear to auscultation bilaterally; no wheezes Cardiovascular Rate/Rhythm: regular rate and regular rhythm Heart Sounds: no murmur Vessels: no carotid bruit Musculoskeletal Spine: no pain with cervical ROM Extremities: extremities normal to inspection Psychiatric Orientation: alert Lab Results Anesthesia Preop Results Results Anesthesia Widget: WBC 12.36 K/uL (4.8-10.8) H 08/04/21 Hgb 13.7 g/dL (12.0-16.0) 08/04/21 Hct 41.5 % (37-47) 08/04/21 Plt 286 K/uL (130-400) 08/04/21 Na 141 mmol/L (136-145) 08/04/21 K 3.6 mmol/L (3.5-5.1) 08/04/21 Cl 105 mmol/L (98-107) 08/04/21 CO2 28 mmol/L (21-32) 08/04/21 BUN 21 mg/dl (6-23) 08/04/21 Creat 0.80 mg/dl (0.6-1.2) 08/04/21 Glucose Level 95 mg/dl (70-99(Fasting)) 08/04/21 PT 10.6 Seconds (9.0-12.0) 08/04/21 PTT 23.9 Seconds (21.0-31.0) 08/04/21 INR 1.0 (0.9-1.1) 08/04/21 Blood Type O Positive 08/04/21 Antibody Screen NEGATIVE 08/04/21 Testing Electrocardiogram Date: 08/04/21 Findings: + NSR @ (80bpm ) and + no change from (June 18, 2020 per cardio ) Anterior infarct (cited on or before June 18, 2020) (PRWP also noted on Apr 27, 2018 EKG) Chest X-Ray Date: 08/04/21 FINDINGS: A few small linear scarlike densities again noted at the lung bases. Otherwise, the lungs are clear. The heart is normal in size. No pleural effusions. No pneumothorax. There is a tortuous thoracic aorta, unchanged. IMPRESSION: No significant change compared to the prior study. No acute process. Other Testing Brain MRI 12/09/17= No acute intracranial abnormality Neck CTA 12/09/17= No evidence of dissection, focal vessel occlusion, or significant stenosis of the cervical arteries. Dominant 1.5 cm nodule in the right lobe of the thyroid. This could be evaluated with nonurgent outpatient thyroid ultrasound as clinically appropriate. Head CTA 12/09/17= No evidence of aneurysm, focal vessel occlusion, or significant stenosis of the intracranial arteries.
--- NOTE | 2021-09-04 13:31 | History & Physical Report ---
Date of Service September 04, 2021 Assessment & Plan (1) Right knee DJD: We will proceed with a right total knee arthroplasty. Postoperatively she will be started on aspirin for DVT prophylaxis and kept overnight in the hospital for postoperative medical management. She plans to use energy physical therapy upon discharge. History of Present Illness Chief Complaint: Osteoarthritis of the right knee. Primary Care Provider: JUAN Keen Zo is a pleasant 80-year-old female who has been dealing with chronic worsening right knee pain. X-rays and clinical examination have beendiagnostic for advanced osteoarthritis of the right knee. After failing years of conservativetreatment including multiple injections, she has elected to proceed with a right total knee arthroplasty. Allergies Allergy/AdvReac Type Severity Reaction Status Date / Time Iwenrhd-IHN-DiJ Reductase Allergy Intermediate joint pain Verified 07/30/21 12:30 Inhibitor [Crwudhy-Qtc-Tgf Reductase Inhibitor] gluten AdvReac Intermediate Gastrointestinal Verified 07/30/21 12:30 Upset lactose AdvReac Intermediate Gastrointestinal Verified 07/30/21 12:30 Upset promethazine AdvReac Intermediate GI SYMPTOMS Verified 07/30/21 12:30 Home Medications Medication Instructions Recorded Confirmed Type latanoprost 0.005 % eye drops 1 drp OPB HS 12/09/17 08/04/21 History omeprazole 20 mg tablet,delayed 20 mg PO QAM 12/09/17 08/04/21 History release amlodipine 2.5 mg tablet 2.5 mg PO QPM 04/20/18 08/04/21 History aspirin 81 mg tablet,delayed 81 mg PO QAM 01/03/19 08/04/21 History release (Aspir-) cholecalciferol (vitamin D3) 125 125 mcg PO QAM 07/30/21 08/04/21 History mcg (5,000 unit) tablet (Vitamin D3) dorzolamide 2 % eye drops 1 drp OPHTHALMIC (EYE) HS 07/30/21 08/04/21 History losartan 50 mg tablet 50 mg PO QAM 07/30/21 08/04/21 History turmeric 400 mg capsule 400 mg PO BID 07/30/21 08/04/21 History Past Med/Surg History Medical History GERD (gastroesophageal reflux disease) Well controlled and stable Glaucoma Follows routinely with eye doctor History of colitis Hx of IBS- constipation related Hyperlipidemia Hypertension Stroke 8 + years ago - no residual effects > doesn't follow neuro Urinary incontinence NIGHTTIME ISSUE Surgical History Family history of reaction to anesthesia DAUGHTER>EXTREME NAUSEA History of bilateral cataract extraction History of colonoscopy History of left hip replacement History of left inguinal hernia repair History of total left knee replacement Hx of inguinal hernia surgery (01/10/19) Open Right Indirect Inguinal Hernia Repair Without Mesh, Lipoma of Round Ligament Dr. Pittman 01/10/19 Nausea and vomiting after administration of anesthetic agent S/P excision of lipoma (05/09/20) Right Upper Quadrant Excision of Abdominal Wall Lipoma Dr. Pittman 05/09/2020 Family History Mother , Mother age 44 of liver cancer. Liver cancer Father , Father age 66 of respiratory failure/COPD COPD (chronic obstructive pulmonary disease) Other No pertinent family history Social History Smoking Status: Never smoker Tobacco Type: Cigarettes Years Smoked: 5; Number of Years Since Quit: 50; Second Hand Exposure: No; Hx Alcohol Use: No Hx Substance Use: No Preferred Language: Bur[place]ian Communication Ability: Effective Visual Impairment: No Limitations Registered Client Associate Required: No Beliefs That Will Affect Care: None marital status: Current Living Situation: Spouse Current Living Situation Comment: live in [place] current occupational status: retired 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 Physical Exam On physical examination of the right knee, she has a severe varus deformity. She ambulates with a severe antalgic gait. She has tenderness palpation of the distal femoral condyles and over the joint line. Constitutional WD/WN, vitals as above Eyes PERRL, conjunctivae normal, anicteric sclerae ENMT external ear and nose normal, oropharynx normal Neck trachea midline, no thyromegaly Respiratory normal respiratory effort Cardiovascular RRR, no murmur, no edema Gastrointestinal (Abdomen) normal bowel sounds, soft, nontender, no hepatosplenomegaly Psychiatric A+Ox3, euthymic affect Results & Data Results & Data Laboratory Results . Diagnostic Findings X-rays of the right knee show advanced osteoarthritis with joint space narrowing osteophyte formation and [id number] articulation. There is lateral subluxation of the tibia on the femur. PG Care Time/CCT Total # of Minutes Spent Total Time Spent with Patient: Total time spent is greater than 50% in coordination of care (as documented) at patient's floor/unit and/or counseling patient: Coding Level of Care Code None Diagnoses Right knee DJD M17.11
[~2021-09-05 09:49] MED LIST changes: +ACETAMINOPHEN 500 MG TAB PO SCH; -ASPI81TA28 PO; +BUPIVACAINE 0.5 % 5 MG/1 ML PF 10ML VIAL ONE; +EPINEPHrine INJ 1 MG/ML AMP ONE; +FAMOTIDINE 20 MG TAB PO SCH; +GABAPENTIN 300 MG CAP PO SCH; +Ketorolac (*for OR use only*) 30 MG, dexAMETHasone 4 MG, KETAMINE HCL (**OR use only) 1... INFIL SCH; -LISI-863 PO; +LR 500ML BOLUS, THEN 15ML/HR IV SCH; +LR 60ML/HR IV SCH; -PRLSR20 PO; +ROPIVACAINE 0.5% 5 MG/ML 30 ML VIAL ONE; +TRANEXAMIC ACID 1,000 MG **IV Intra-op IV SCH; +TRANEXAMIC ACID 1,000 MG **IV Pre-op IV SCH; -TURM500T PO; -XLTOPS OPB; +ceFAZolin 1000MG 1,000 MG/7.5 ML SYR IV SCH; +dexAMETHasone 4 MG TAB PO SCH
--- NOTE | 2021-09-05 11:57 | History & Physical Bridge Note ---
Date of Service September 05, 2021 History & Physical Bridge Note I have examined the patient, reviewed the History & Physical and in the interval since the performance of the History & Physical I have noted the following changes of clinical significance: no changes noted
[2021-09-05] MEDS ORDERED: ORTHO JOINT ANESTHETIC ONE (12:25)
[2021-09-05] MEDS ORDERED: PROPOFOL IV EMULSION 10 MG/ML 20 ML VIAL IV ONE (12:27)
[2021-09-05] MEDS ORDERED: fentaNYL citrate 100 MCG/2 ML VIAL ONE (12:32)
[2021-09-05] MEDS ORDERED: MIDAZOLAM HCL 1 MG/ML 2ML VIAL ONE (12:32)
--- NOTE | 2021-09-05 14:42 | Operative Report ---
PG Post Operative Report Pre & Post Diagnosis Operation Date: 09/05/21 12:50 Pre-Op Diagnosis: Right Knee Degenerative Joint Disease Post-Op Diagnosis: Right Knee Degenerative Joint Disease I identified the patient and participated in the time-out.: Yes Procedure Operation Date: 09/05/21 12:50 Actual Procedures p Right Total Knee Arthroplasty(Right) - Bassem Joyner DO Surgeon Bassem Joyner DO Equal Opportunity Specialist Bassem Sanchez PAC Estimated Blood Loss 10 Findings Consistent with Post-Op Diagnosis Specimens Right femoral and tibial bone Complications none Disposition Disposition: Recovery Room Description of Procedure Implants used: I used a Stephen Persona total knee arthroplasty system with a size 6 standard PS femur, D tibia with a 10 mm medial augment and a 14 x 75 mm stem extension, 31 oval patella, and a size 10 CPS polyethylene bearing. All components were cemented in place with Biomet cement. Zo arrived [facility] for the above procedure. She was seen in the preoperative holding area and the operative extremity was identified and signed. She was given a preoperative antibiotic, TXA, a spinal anesthetic and an adductor nerve block. She was taken back to the operating room and laid on the table in supine position. She was given basic sedation. The operative knee was then prepped and draped in sterile fashion. A timeout was done, and the patient and the operative extremity was properly identified. A midline incision was made directly over the patella. Dissection was taken down to the extensor mechanism. A subvastus arthrotomy was used. The medial retinaculum was released and the fat pad was mostly excised. The knee was flexed and the ACL, PCL, and meniscus were removed. A drill was sent down the center of the femoral canal followed by an intramedullary sebas. Off that sebas a distal femoral cutting block was placed. 9 mm was resected off the distal femur at 5 of valgus. A posterior referencing AP sizing guide was then placed on the distal femur. The femur measured to be a size 6. 2 drill holes were placed in 3 of external rotation. A 4-in-1 cutting block was then impacted into place. Anterior, posterior, and chamfer cuts were then made. The proximal tibia was then exposed. An external tibial alignment guide was placed. A tibial cut guide was then anchored in place and the proximal tibia was then resected. There was a large medial sided defect. I then cut for a 10 mm medial augment and decided to add a 75 mm stem extension to the tibia. The posterior aspect of the knee was then opened up and any additional meniscus fragments and osteophytes were removed. The tibia measured to be a size D. The tibial plate was then placed in the appropriate rotation and the tibia was drilled and punched. Trial components were then placed. I used a size 10 CPS polyethylene insert. The knee was brought through a full range of motion and felt to be stable. The peg holes for the femoral component were then drilled. The patella was then everted and 9 mm was resected off the posterior aspect of the patella. The patella measured to be a size 31 oval. 3 peg holes were then drilled. A trial patella was placed. The knee was once again brought through a full range of motion and felt to be stable. Trial components were then removed. The surrounding soft tissues were injected with 100 cc of an orthopedic pain control cocktail. All components were then cemented into place with Biomet cement. The final polyethylene insert was then snapped into place. Once cement was dry the tourniquet was deflated. Hemostasis was obtained. A dilute betadyne lavage was then done for 3 minutes. The joint was then irrigated with normal saline solution. The subvastus arthrotomy was then closed with #1 Vicryl suture. The skin was closed with 2-0 Vicryl, 3-0V lock suture, and jimena. A soft compressive dressing was placed. She was then transferred to a hospital bed and taken to the postanesthesia care unit in stable condition. She tolerated the procedure well. Bassem Sanchez PA-C, was present for the entire procedure. He was critical for patient positioning, prepping, draping, retraction exposure, wound closure and application of sterile dressing. I attest to the content of the Intraoperative Record and any orders documented therein. Any exceptions are noted below.
[2021-09-05] MEDS ORDERED: ONDANSETRON INJ 2 MG/ML 2 ML VIAL ONE (14:46)
[2021-09-05] MEDS ORDERED: ONDANSETRON INJ 2 MG/ML 2 ML VIAL IV PRN ×2 (15:12→16:15)
[2021-09-05] MEDS ORDERED: HYDROmorphone INJ 1 MG/ML SYRINGE IV PRN (15:12)
[2021-09-05] MEDS ORDERED: ePHEDrine sulfate 50 MG/ML AMP IV PRN (15:12)
[2021-09-05] MEDS ORDERED: NALOXONE HCL 0.4 MG/1 ML VIAL/CARP IV PRN ×2 (15:12→16:15)
[2021-09-05] MEDS ORDERED: fentaNYL citrate 100 MCG/2 ML VIAL IV PRN (15:12)
[2021-09-05] MEDS ORDERED: ATROPINE SULFATE 0.1 MG/ML 10ML SYR IV PRN (15:12)
[2021-09-05] MEDS ORDERED: PROMETHAZINE HCL 12.5 MG in SODIUM CHLORIDE 0.9% 50 ML IV PRN (15:12)
[2021-09-05] MEDS ORDERED: LABETALOL HCL IV 5 MG/ML 20ML IV PRN (15:12)
--- NOTE | 2021-09-05 15:35 | Anesthesiology Progress Note ---
Date of Service September 05, 2021 Anesthesia Post Procedure Vital Signs Vital Signs: Temp Pulse Pulse Resp BP Pulse Ox 09/05/21 15:30 69 15 107/71 93 09/05/21 15:20 72 16 104/71 95 09/05/21 15:10 71 14 103/71 95 09/05/21 15:05 36.3 C L 82 14 93/63 L 95 09/05/21 10:32 36.4 C L 63 20 174/101 H 96 Transfer of Care Handoff Completed per policy Notes Mental Status: alert / awake / arousable Patient Amnestic to Procedure: Yes Nausea / Vomiting: adequately controlled Pain: adequately controlled Airway Patency, RR, SpO2: stable & adequate BP & HR: stable & adequate Hydration State: stable & adequate Anesthetic Complications: no major complications apparent
[2021-09-05] MEDS ORDERED: METOCLOPRAMIDE HCL INJ 5 MG/ML 2 ML VIAL IV PRN (16:15)
[2021-09-05] MEDS ORDERED: oxyCODONE HCL IR 5 MG TAB (IMMEDIATE RELEASE) PO PRN (16:15)
[2021-09-05] MEDS ORDERED: HYDROmorphone INJ 0.5 MG/0.5 ML SYR IV PRN (16:15)
[2021-09-05] MEDS ORDERED: bisacodyL 10 MG SUPP PR PRN (16:15)
[2021-09-05] MEDS ORDERED: MAGNESIUM HYDROXIDE SUSP 30 ML UDC PO PRN (16:15)
[2021-09-05] MEDS: SODIUM CHLORIDE 0.9% 1000ML 1,000 ML IV SCH (16:20)
[2021-09-05] MEDS ORDERED: traMADol HCL 50 MG TABLET PO PRN (16:45)
--- NOTE | 2021-09-05 16:45 | XRay Report ---
XR knee RT 1 or 2V routine CLINICAL HISTORY: Surgical Post Op TECHNIQUE: 2 views of the right knee were obtained. Comparison: None available at the time of this dictation. FINDINGS: Patient is status post total knee arthroplasty with expected postsurgical changes including soft tiss ue swelling, subcutaneous emphysema, and surgical staple placement. No periarticular lucency or hardw are fracture is seen. IMPRESSION: Expected postoperative appearance status post placement of total knee arthroplasty. ACT 112: Negative or not required by law. Electronically signed by: Bobby Valente M.D. 09/05/2021 4:44 PM
[2021-09-05] MEDS: KETOROLAC TROMETHAMINE 15 MG/ML VIAL IV SCH (18:06)
[2021-09-05] MEDS ORDERED: MELATONIN 3 MG TAB PO PRN (18:11)
[2021-09-05] MEDS: DOCUSATE SODIUM 100 MG CAP PO SCH (20:39)
[2021-09-05] MEDS: ASPIRIN 81 MG ECTAB PO SCH (20:41)
[2021-09-05] MEDS: ceFAZolin 2000MG 2,000 MG/15 ML SYR IV SCH (20:53)
[2021-09-05] MEDS ORDERED: DORZOLAMIDE HCL 2% OPH SOLN 10 ML BTL OP SCH (21:00)
[2021-09-05] MEDS ORDERED: amLODIPine BESYLATE 5 MG TAB PO SCH (21:00)
[2021-09-05] MEDS ORDERED: LATANOPROST 0.005% OP SOLN 2.5 ML BTL OPB SCH (21:00)
[2021-09-05] MEDS ORDERED: SENNA 8.6 MG TAB PO SCH (21:00)
[2021-09-05] MEDS: ACETAMINOPHEN 500 MG TAB PO SCH (21:43)
[2021-09-06] MEDS: KETOROLAC TROMETHAMINE 15 MG/ML VIAL IV SCH ×2 (00:04→05:43)
[2021-09-06] MEDS: SODIUM CHLORIDE 0.9% 1000ML 1,000 ML IV SCH (02:17)
[2021-09-06] MEDS: ceFAZolin 2000MG 2,000 MG/15 ML SYR IV SCH (05:40)
[2021-09-06] MEDS: ACETAMINOPHEN 500 MG TAB PO SCH (05:47)
--- NOTE | 2021-09-06 07:10 | Orthopedic Progress Note ---
Date of Service September 06, 2021 Assessment & Plan (1) Status post right knee replacement: Overall she is doing very well. She denies any much pain in the right knee. She will be seen by physical therapy today for ambulation and range of motion exercises. She is on aspirin for DVT prophylaxis. She can be discharged home later today. She will follow-up with orthopedics in 2 weeks. Kim Pathak was seen and examined at bedside this morning. Overall she doing very well. She is not having much pain in the right knee. She has been up and ambulating to the bathroom. She has no complaints. Review of Systems All systems reviewed & are unremarkable except as noted in HPI & below. Physical Exam On physical examination of the right knee, the dressing is clean and dry. Her leg is out in full extension. She has active dorsiflexion plantarflexion of the right ankle. Sensation is intact throughout.. Results & Data Results & Data Laboratory Results . Diagnostic Findings Postoperative x-rays of the right knee show the prosthesis to be in anatomic alignment without any evidence of fracture, desiccation, or loosening. PG Care Time/CCT Total # of Minutes Spent Total Time Spent with Patient: Total time spent is greater than 50% in coordination of care (as documented) at patient's floor/unit and/or counseling patient: Coding Level of Care Code 05022 Post Operative Follow-Up Diagnoses Status post right knee replacement Z96.651
[2021-09-06] MEDS: DOCUSATE SODIUM 100 MG CAP PO SCH (07:15)
[2021-09-06] MEDS: ASPIRIN 81 MG ECTAB PO SCH (07:15)
[2021-09-06] MEDS ORDERED: dexAMETHasone 4 MG TAB PO SCH (08:00)
[2021-09-06] MEDS ORDERED: MULTIVITAMIN TAB PO SCH (09:00)
[2021-09-06] MEDS ORDERED: PANTOprazole 40 MG TAB PO SCH (09:00)
[2021-09-06] MEDS ORDERED: LOSARTAN POTASSIUM 50 MG TAB PO SCH (09:00)
== END 2021-09-06 11:22 | disposition home health service (06) ==
LOC: ASU 09:49 → 3E 09:49

== ENCOUNTER 2024-01-08 07:22 | Inpatient (IN) ==
--- NOTE | 2024-01-08 07:41 | Emergency Department Note ---
History of Present Illness General Chief complaint: Altered Mental Status Stated complaint: AMS, FALL, Time Seen by Provider: 01/08/24 07:30 Source: EMS History of Present Illness Provider complaint: Weakness. Confusion. Fall 83-year-old female presents emergency department for weakness confusion and fall. EMS reports that the patient fell on and since then has been having increasing weakness. They report that the patient was last seen well normal at 7:30 PM last night. They states she woke up this morning and was confused and was having difficulty speaking. No falls since the initial fall on . No blood thinners. Home Medications Medication Instructions Recorded Confirmed Type latanoprost 0.005 % eye drops 1 drp OPB HS 12/09/17 01/08/24 History omeprazole 20 mg tablet,delayed 20 mg PO QAM 12/09/17 01/08/24 History release amlodipine 2.5 mg tablet 2.5 mg PO QPM 04/20/18 01/08/24 History cholecalciferol (vitamin D3) 125 125 mcg PO QAM 07/30/21 01/08/24 History mcg (5,000 unit) tablet (Vitamin D3) losartan 50 mg tablet 50 mg PO QAM 07/30/21 01/08/24 History turmeric 400 mg capsule 400 mg PO BID 07/30/21 01/08/24 History alprazolam 0.25 mg tablet 0.25 mg PO DAILY PRN Anxiety 01/08/24 01/08/24 History aspirin 81 mg tablet,delayed 81 mg PO DAILY 01/08/24 01/08/24 History release Allergies Allergy/AdvReac Type Severity Reaction Status Date / Time [id number] Reductase Allergy Intermediate joint pain Verified 10/01/21 15:07 Inhibitor [Mtpaqgr-Yfg-Uta Reductase Inhibitor] gluten AdvReac Intermediate Gastrointestinal Verified 10/01/21 15:07 Upset lactose AdvReac Intermediate Gastrointestinal Verified 10/01/21 15:07 Upset promethazine AdvReac Intermediate GI SYMPTOMS Verified 10/01/21 15:07 Past Med/Surg History Problem List (Updated 01/08/24 @ 09:57 by Rikki Shearer MD) Stroke-like symptoms (Acute) Hypoxia (Acute) Laceration of lip (Acute) Fall (Acute) Arm pain (Acute) RUQ abdominal pain Status post right knee replacement (~08/2021) S/P hernia repair Colitis Diverticulosis Hypertensive urgency (Acute) GERD (gastroesophageal reflux disease) TIA (transient ischemic attack) Expressive aphasia Encounter for pre-operative examination Osteoarthritis of left hip Diffuse abdominal pain (Acute) Vomiting (Acute) Status post hip surgery (Acute) 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 (Acute) Ischemic stroke (Acute) Dyslipidemia (Acute) Depressive disorder (Acute) Cognitive impairment (Acute) Chronic cerebral ischemia (Acute) Abnormal electrocardiogram (Acute) Right upper quadrant abdominal mass Elevated troponin (Acute) Abdominal pain (Acute) Hypoxia Suspected COVID-19 virus infection Hypokalemia Colitis Glaucoma Stroke 8 + years ago - no residual effects > doesn't follow neuro Hypertension Medical History Glaucoma Follows routinely with eye doctor Hyperlipidemia History of colitis Hx of IBS- constipation related Urinary incontinence NIGHTTIME ISSUE GERD (gastroesophageal reflux disease) Well controlled and stable Surgical History Family history of reaction to anesthesia DAUGHTER>EXTREME NAUSEA S/P excision of lipoma (05/09/20) Right Upper Quadrant Excision of Abdominal Wall Lipoma Dr. Pittman 05/09/2020 Nausea and vomiting after administration of anesthetic agent Hx of inguinal hernia surgery (01/10/19) Open Right Indirect Inguinal Hernia Repair Without Mesh, Lipoma of Round Ligament Dr. Pittman 01/10/19 History of left inguinal hernia repair History of left hip replacement History of colonoscopy History of bilateral cataract extraction History of total left knee replacement Family History Mother , Mother age 44 of liver cancer. Liver cancer Father , Father age 66 of respiratory failure/COPD COPD (chronic obstructive pulmonary disease) Other No pertinent family history Social History Smoking Status: Never smoker Tobacco Type: Cigarettes Second Hand Exposure: No; Do You Dip or Chew Tobacco: No; Hx Alcohol Use: No Hx Substance Use: No Preferred Language: Czech Communication Ability: Effective Visual Impairment: No Limitations Chief Science Officer Required: No Beliefs That Will Affect Care: None marital status: Current Living Situation: Spouse Current Living Situation Comment: live in [place] [employer] current occupational status: retired 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 How many Children do You have: 4 Feels Safe at Home: Yes Assistive Devices: None Physical Exam Vital Signs Vital Signs - 24 hr 01/08/24 07:34 01/08/24 08:30 01/08/24 08:33 Temperature 36.6 C Temperature Source Oral Pulse Rate 84 Pulse Rate from SpO2 Sensor Pulse Rhythm Regular Pulse Strength Normal Respiratory Rate 20 Respiratory Effort / Characteristics Non-Labored Respiratory Depth Normal Respiratory Pattern Regular Blood Pressure 144/96 H 127/71 Blood Pressure Mean 112 96 Blood Pressure Position Lying Pulse Oximetry 96 86 L Oxygen Delivery Method Room Air Nasal Cannula Sepsis Recent Fever Within 48 Hours No Sepsis New/Unexplained Change in Mental Status Yes Sepsis Action Taken by Nursing No Action Required Oxygen Flow Rate - Titration 2 Pulse Oximetry Post Tiitration 98 01/08/24 08:33 01/08/24 08:37 01/08/24 09:00 Temperature Temperature Source Pulse Rate 75 74 Pulse Rate from SpO2 Sensor 75 Pulse Rhythm Pulse Strength Respiratory Rate 17 Respiratory Effort / Characteristics Respiratory Depth Respiratory Pattern Blood Pressure 115/76 Blood Pressure Mean 90 Blood Pressure Position Pulse Oximetry 98 Oxygen Delivery Method Sepsis Recent Fever Within 48 Hours Sepsis New/Unexplained Change in Mental Status Sepsis Action Taken by Nursing Oxygen Flow Rate - Titration Pulse Oximetry Post Tiitration 01/08/24 09:00 01/08/24 09:09 01/08/24 09:30 Temperature Temperature Source Pulse Rate 74 77 Pulse Rate from SpO2 Sensor 75 77 Pulse Rhythm Pulse Strength Respiratory Rate 19 20 Respiratory Effort / Characteristics Respiratory Depth Respiratory Pattern Blood Pressure 121/80 Blood Pressure Mean 94 Blood Pressure Position Pulse Oximetry 95 95 Oxygen Delivery Method Sepsis Recent Fever Within 48 Hours Sepsis New/Unexplained Change in Mental Status Sepsis Action Taken by Nursing Oxygen Flow Rate - Titration Pulse Oximetry Post Tiitration 01/08/24 09:42 Temperature Temperature Source Pulse Rate 73 Pulse Rate from SpO2 Sensor 72 Pulse Rhythm Pulse Strength Respiratory Rate 22 Respiratory Effort / Characteristics Respiratory Depth Respiratory Pattern Blood Pressure Blood Pressure Mean Blood Pressure Position Pulse Oximetry 97 Oxygen Delivery Method Sepsis Recent Fever Within 48 Hours Sepsis New/Unexplained Change in Mental Status Sepsis Action Taken by Nursing Oxygen Flow Rate - Titration Pulse Oximetry Post Tiitration Physical Exam HENT: Exam performed. -Head: Normocephalic and atraumatic. -Right Ear: External ear normal. No mastoid erythema -Left Ear: External ear normal. No mastoid erythema -Mouth/Throat: The oropharynx is clear and moist. No trismus in the jaw. No dental abscesses or uvula swelling. No oropharyngeal exudate or tonsillar abscesses. Ecchymosis over the patient's lower lip. EYES: Conjunctivae and EOM are normal. Pinpoint pupils bilaterally. Nonreactive to light bilaterally. Right eye exhibits no discharge. Left eye exhibits no discharge. No scleral icterus. NECK: Normal range of motion. Neck supple. No JVD present. No spinous process tenderness present. CV: Normal rate, regular rhythm, normal heart sounds and intact distal pulses. There is no peripheral edema. Palpable radial pulses bue. PULM/CHEST: Effort normal and breath sounds normal. No respiratory distress. No stridor. She has no wheezes. She has no rales. ABD: The abdomen is soft. There is no tenderness. There is no rebound, no guarding MUSC/SKEL: Pelvis stable. NEURO: Patient has some dysarthria and expressive aphasia. Gate Agent strength is present bilaterally. Lower extremity strength is within normal limits bilaterally. Course Course 0730: The patient was evaluated in room B2. A complete history and physical exam was performed Cardiac monitoring: An order was placed for continuous cardiac monitoring. The monitor shows a rate of 80 with sinus rhythm interpreted by me No code stroke called as patient's last well normal was 7:30 PM last night. Patient is not a TNKase candidate. 0830: Patient became hypoxic on room air. Supplemental oxygen applied via nasal cannula to improve the patient's oxygen saturation. Patient does appear more alert. 0915: Patient's family is at bedside. Labs and imaging are unremarkable. Family is concerned that the patient may have taken too much oxycodone and she is opiate luis m. We attempted to discontinue the patient's oxygen saturation will continue to observe the patient. 0953: Patient alert and oriented x 3 dysarthria and aphasia have improved however the patient's oxygen saturation keeps going down and the patient required supplemental oxygen via nasal cannula. Patient will be admitted to the [facility] team. Administered Medications Discontinued Medications Ioversol (Optiray 320 125ml) 112 ml IV ONCE ONE Stop: 01/08/24 07:57 Last Admin: 01/08/24 07:56 Dose: 112 ml Documented By: SHERIF Critical Care Time Critical Care Time: Yes Total Critical Care Time: 38 I have personally spent greater than 38 minutes of critical care time in the direct management of this patient. This includes bedside care, interpretation of diagnostic studies, and testing, discussion with consultants, patient, and family members, and other required patient management activities. This 38 minutes is in excess of all separately billable procedures. Medical Decision Making Medical Records Attestation: I reviewed the patient's medical records. External medical records reviewed. Patient was seen in the emergency department yesterday and had a negative CT of her head as well as x-rays of her arm. Laboratory Data Attestation: I reviewed the patient's lab results. 01/08/24 07:40 01/08/24 07:40 Lab Results 01/08/24 01/08/24 01/08/24 Range/Units 07:40 07:51 08:07 WBC 11.17 H (4.8-10.8) K/ul RBC 5.06 (4.20-5.40) M/uL Hgb 14.7 (12.0-16.0) g/dl POC Hgb 14.6 (12.0-16.0) g/dl Hct 44.3 (37.0-47.0) % POC Hct 43 (37-47) % MCV 87.5 (80.0-100.0) fL MCH 29.1 (25.0-34.0) pg MCHC 33.2 (32.0-36.0) g/dL RDW Std Deviation 47.2 H (36.4-46.3) fL RDW Coeff of [place] 14.6 H (11.5-14.5) % Plt Count 194 (130-400) K/uL MPV 10.5 (9.4-12.4) fL Immature Gran % (Auto) 0.4 % Neut % (Auto) 82.3 % Lymph % (Auto) 8.5 % [place] % (Auto) 7.9 % Eos % (Auto) 0.7 % Baso % (Auto) 0.2 % Neut # (Auto) 9.19 H (1.40-6.50) K/uL Lymph # (Auto) 0.95 L (1.20-3.40) K/uL [place] # (Auto) 0.88 H (0.11-0.59) K/uL Eos # (Auto) 0.08 (0.00-0.50) K/uL Baso # (Auto) 0.02 (0.00-0.20) K/uL Immature Gran # (Auto) 0.05 (0.01-0.20) K/uL PT 10.7 (9.0-12.0) Seconds INR 1.0 (0.9-1.1) APTT 24 (21-31) Seconds PTT Ratio 0.9 VBG pH (7.36-7.41) VBG pCO2 (38-50) mmHg VBG pO2 mmHg VBG HCO3 mmol/L VBG O2 Saturation % VBG Base Excess mEq/L POC Sodium 141 (135-144) mmol/L Sodium 141 (136-145) mmol/L POC Potassium 3.7 (3.3-5.0) mmol/L Potassium 3.8 (3.5-5.1) mmol/L POC Chloride 105 (101-112) mmol/L Chloride 107 (98-107) mmol/L Carbon Dioxide 28 (21-32) mmol/L POC Total CO2 24 (24-31) mmol/L Anion Gap 6 (3-11) POC Anion Gap 17.0 (16-25) mmol/L POC BUN 22 H (7-18) mg/dl BUN 21 (6-23) mg/dl Creatinine 0.76 (0.6-1.2) mg/dl POC Creatinine 0.8 (0.6-1.3) mg/dl Est Cr Clr Drug Dosing 50.3 ml/min eGFR 77.70 BUN/Creatinine Ratio 27.6 H (10-20) Glucose 108 H (70-99(Fasting)) mg/dl POC Glucose (other) 110 H (70-99) mg/dl Lactate 1.1 (0.4-2.0) mmol/L Calcium 9.9 (8.6-10.3) mg/dl POC Ioniz Calcium Sher[place] 1.30 (1.12-1.32) mmol/l Magnesium 2.1 (1.7-2.4) mg/dl Total Bilirubin 0.9 (0.2-1.0) mg/dl AST 17 (13-39) U/L ALT 13 (7-52) U/L Alkaline Phosphatase 75 (34-104) U/L Total Creatine Kinase 15 L (26-192) U/L Troponin I High Sens 7.4 (0-14) pg/ml Total Protein 6.6 (6.0-8.3) gm/dl Albumin 3.8 (3.4-5.0) gm/dl Globulin 2.8 (2.5-4.0) gm/dl Albumin/Globulin Ratio 1.4 (0.9-2) SARS-CoV-2 (PCR) (Negative) Influenza Type A (PCR) (Neg) Influenza Type B (PCR) (Neg) RSV (RT-PCR) (Neg) 01/08/24 Range/Units 08:45 WBC (4.8-10.8) K/ul RBC (4.20-5.40) M/uL Hgb (12.0-16.0) g/dl POC Hgb (12.0-16.0) g/dl Hct (37.0-47.0) % POC Hct (37-47) % MCV (80.0-100.0) fL MCH (25.0-34.0) pg MCHC (32.0-36.0) g/dL RDW Std Deviation (36.4-46.3) fL RDW Coeff of [place] (11.5-14.5) % Plt Count (130-400) K/uL MPV (9.4-12.4) fL Immature Gran % (Auto) % Neut % (Auto) % Lymph % (Auto) % [place] % (Auto) % Eos % (Auto) % Baso % (Auto) % Neut # (Auto) (1.40-6.50) K/uL Lymph # (Auto) (1.20-3.40) K/uL [place] # (Auto) (0.11-0.59) K/uL Eos # (Auto) (0.00-0.50) K/uL Baso # (Auto) (0.00-0.20) K/uL Immature Gran # (Auto) (0.01-0.20) K/uL PT (9.0-12.0) Seconds INR (0.9-1.1) APTT (21-31) Seconds PTT Ratio VBG pH 7.37 (7.36-7.41) VBG pCO2 51 H (38-50) mmHg VBG pO2 37 mmHg VBG HCO3 30 mmol/L VBG O2 Saturation 68.0 % VBG Base Excess 3.1 mEq/L POC Sodium (135-144) mmol/L Sodium (136-145) mmol/L POC Potassium (3.3-5.0) mmol/L Potassium (3.5-5.1) mmol/L POC Chloride (101-112) mmol/L Chloride (98-107) mmol/L Carbon Dioxide (21-32) mmol/L POC Total CO2 (24-31) mmol/L Anion Gap (3-11) POC Anion Gap (16-25) mmol/L POC BUN (7-18) mg/dl BUN (6-23) mg/dl Creatinine (0.6-1.2) mg/dl POC Creatinine (0.6-1.3) mg/dl Est Cr Clr Drug Dosing ml/min eGFR BUN/Creatinine Ratio (10-20) Glucose (70-99(Fasting)) mg/dl POC Glucose (other) (70-99) mg/dl Lactate (0.4-2.0) mmol/L Calcium (8.6-10.3) mg/dl POC Ioniz Calcium [place] (1.12-1.32) mmol/l Magnesium (1.7-2.4) mg/dl Total Bilirubin (0.2-1.0) mg/dl AST (13-39) U/L ALT (7-52) U/L Alkaline Phosphatase (34-104) U/L Total Creatine Kinase (26-192) U/L Troponin I High Sens (0-14) pg/ml Total Protein (6.0-8.3) gm/dl Albumin (3.4-5.0) gm/dl Globulin (2.5-4.0) gm/dl Albumin/Globulin Ratio (0.9-2) SARS-CoV-2 (PCR) NEGATIVE (Negative) Influenza Type A (PCR) Negative (Neg) Influenza Type B (PCR) Negative (Neg) RSV (RT-PCR) Negative (Neg) Imaging Data Radiologist's Impression: Chest X-Ray 01/08/24 07:37 SINGLE VIEW CHEST CLINICAL HISTORY: Neurological deficit. Stroke like symptoms. FINDINGS: An AP, portable, upright chest radiograph is compared to study dated 08/04/2021. Correlation is made with chest CT dated 06/18/2020. The heart is enlarged noting atherosclerotic calcification of the thoracic aorta. The pulmonary vasculature is noncongested. Chronic interstitial thickening is similar to previous. There is bibasilar scarring/atelectasis. No airspace consolidation or large pleural effusion is identified. No pneumothorax is seen. The skeletal structures are osteopenic. The bony thorax is grossly intact. Degenerative change is noted in the shoulders and spine. IMPRESSION: Cardiomegaly with no acute cardiopulmonary abnormality identified. ACT 112: Negative or not required by law. Electronically signed by: Dave Maradiaga M.D. 01/08/2024 8:[address] 01/08/24 07:[address] OF THE BRAIN; CT ANGIOGRAM OF THE BRAIN; CT ANGIOGRAM OF THE NECK CLINICAL HISTORY: Neurological deficit. Stroke like symptoms. COMPARISON STUDY: CT of the brain dated 01/07/2024. CT angiogram of the head and neck dated 12/09/2017. TECHNIQUE: Unenhanced axial CT scan of the brain is performed. Subsequently, following the IV administration of 112 of Optiray 320, CT angiogram of the head and neck was performed from the aortic arch to the vertex. Images are reviewed in the axial, sagittal, and coronal planes. 3-D MIPS images are created and assessed. IV contrast was administered without complication. All measurements were calculated based on NASCET criteria. A dose lowering technique was utilized adhering to the principles of ALARA. FINDINGS: Brain parenchyma: There is age-related involutional change impression no moderate to advanced subcortical and periventricular microangiopathic disease. There is no hemorrhage, mass effect, or evidence of acute territorial ischemia by CT criteria. There is no evidence of enhancing mass lesion on the angiogram phase images. The ventricles, sulci, and cisterns are prominent secondary to involutional change. There is a chronic lacunar infarct in the left basal ganglia. Wagner-white matter differentiation is preserved. No extra-axial fluid collection is seen. Thoracic aorta: There is atherosclerotic calcification of the thoracic aorta. Visualized portions of the thoracic aorta are normal in caliber. The aortic arch demonstrates bovine variant anatomy. Right carotid arterial system: The right common carotid artery is widely patent, as are the right internal and external carotid arteries. Calcified plaque is noted in the carotid bulb. Left carotid arterial system: The left common carotid artery is widely patent, as are the left internal and external carotid arteries. Calcified plaque is noted in the carotid bulb. Vertebral arteries: The vertebral arteries are widely patent bilaterally and codominant. Subclavian arteries: Widely patent bilaterally. Intracranial vasculature: There is atherosclerotic calcification of the cavernous carotid and vertebral arteries. The [place] is developmentally complete. The internal carotid arteries are patent at the skull base, as are the anterior and middle cerebral arteries bilaterally. The vertebrobasilar system and posterior cerebral arteries are widely patent. The vertebral arteries are codominant. There is no aneurysm, high-grade stenosis, or focal vessel cut off seen throughout the intracranial circulation. Jugular veins: Patent bilaterally. Dural sinuses: Patent. Lung apices: There is mild emphysematous change. The imaged apical lung parenchyma is otherwise clear. Soft tissues: The visualized pharyngeal soft tissues are normal in appearance noting angiographic phase technique. The oropharyngeal airway appears widely patent. The thyroid gland is enlarged and heterogeneous, typical for goiter. The salivary glands are normal in appearance. No cervical lymphadenopathy is seen. Skeletal structures: The skeletal structures are osteopenic. The calvarium appears intact. The cervical spine is maintained noting multilevel spondylosis. Orbits: The bony orbits are intact. Orbital contents are normal as visualized noting bilateral ocular lens implants. Sinuses and mastoids: There is trace mucosal thickening within the left sphenoid sinus, the right frontal sinus, and the ethmoid sinuses. The mastoid air cells are well pneumatized. IMPRESSION: 1. There is no hemorrhage, mass effect, or evidence of acute territorial ischemia by CT criteria. 2. Unremarkable CT angiogram of the brain. 3. Unremarkable CT angiogram of the neck. ACT 112: Negative or not required by law. Electronically signed by: Dave Maradiaga M.D. 01/08/2024 8:38 AM Head CTA 01/08/24 07:[address] OF THE BRAIN; CT ANGIOGRAM OF THE BRAIN; CT ANGIOGRAM OF THE NECK CLINICAL HISTORY: Neurological deficit. Stroke like symptoms. COMPARISON STUDY: CT of the brain dated 01/07/2024. CT angiogram of the head and neck dated 12/09/2017. TECHNIQUE: Unenhanced axial CT scan of the brain is performed. Subsequently, following the IV administration of 112 of Optiray 320, CT angiogram of the head and neck was performed from the aortic arch to the vertex. Images are reviewed in the axial, sagittal, and coronal planes. 3-D MIPS images are created and assessed. IV contrast was administered without complication. All measurements were calculated based on NASCET criteria. A dose lowering technique was utilized adhering to the principles of ALARA. FINDINGS: Brain parenchyma: There is age-related involutional change impression no moderate to advanced subcortical and periventricular microangiopathic disease. There is no hemorrhage, mass effect, or evidence of acute territorial ischemia by CT criteria. There is no evidence of enhancing mass lesion on the angiogram phase images. The ventricles, sulci, and cisterns are prominent secondary to involutional change. There is a chronic lacunar infarct in the left basal ganglia. Wagner-white matter differentiation is preserved. No extra-axial fluid collection is seen. Thoracic aorta: There is atherosclerotic calcification of the thoracic aorta. Visualized portions of the thoracic aorta are normal in caliber. The aortic arch demonstrates bovine variant anatomy. Right carotid arterial system: The right common carotid artery is widely patent, as are the right internal and external carotid arteries. Calcified plaque is noted in the carotid bulb. Left carotid arterial system: The left common carotid artery is widely patent, as are the left internal and external carotid arteries. Calcified plaque is noted in the carotid bulb. Vertebral arteries: The vertebral arteries are widely patent bilaterally and codominant. Subclavian arteries: Widely patent bilaterally. Intracranial vasculature: There is atherosclerotic calcification of the cavernous carotid and vertebral arteries. The [place] is developmentally complete. The internal carotid arteries are patent at the skull base, as are the anterior and middle cerebral arteries bilaterally. The vertebrobasilar system and posterior cerebral arteries are widely patent. The vertebral arteries are codominant. There is no aneurysm, high-grade stenosis, or focal vessel cut off seen throughout the intracranial circulation. Jugular veins: Patent bilaterally. Dural sinuses: Patent. Lung apices: There is mild emphysematous change. The imaged apical lung parenchyma is otherwise clear. Soft tissues: The visualized pharyngeal soft tissues are normal in appearance noting angiographic phase technique. The oropharyngeal airway appears widely patent. The thyroid gland is enlarged and heterogeneous, typical for goiter. The salivary glands are normal in appearance. No cervical lymphadenopathy is seen. Skeletal structures: The skeletal structures are osteopenic. The calvarium appears intact. The cervical spine is maintained noting multilevel spondylosis. Orbits: The bony orbits are intact. Orbital contents are normal as visualized noting bilateral ocular lens implants. Sinuses and mastoids: There is trace mucosal thickening within the left sphenoid sinus, the right frontal sinus, and the ethmoid sinuses. The mastoid air cells are well pneumatized. IMPRESSION: 1. There is no hemorrhage, mass effect, or evidence of acute territorial ischemia by CT criteria. 2. Unremarkable CT angiogram of the brain. 3. Unremarkable CT angiogram of the neck. ACT 112: Negative or not required by law. Electronically signed by: Dave Maradiaga M.D. 01/08/2024 8:38 AM Neck CTA 01/08/24 07:[address] OF THE BRAIN; CT ANGIOGRAM OF THE BRAIN; CT ANGIOGRAM OF THE NECK CLINICAL HISTORY: Neurological deficit. Stroke like symptoms. COMPARISON STUDY: CT of the brain dated 01/07/2024. CT angiogram of the head and neck dated 12/09/2017. TECHNIQUE: Unenhanced axial CT scan of the brain is performed. Subsequently, following the IV administration of 112 of Optiray 320, CT angiogram of the head and neck was performed from the aortic arch to the vertex. Images are reviewed in the axial, sagittal, and coronal planes. 3-D MIPS images are created and assessed. IV contrast was administered without complication. All measurements were calculated based on NASCET criteria. A dose lowering technique was utilized adhering to the principles of ALARA. FINDINGS: Brain parenchyma: There is age-related involutional change impression no moderate to advanced subcortical and periventricular microangiopathic disease. There is no hemorrhage, mass effect, or evidence of acute territorial ischemia by CT criteria. There is no evidence of enhancing mass lesion on the angiogram phase images. The ventricles, sulci, and cisterns are prominent secondary to involutional change. There is a chronic lacunar infarct in the left basal ganglia. Wagner-white matter differentiation is preserved. No extra-axial fluid collection is seen. Thoracic aorta: There is atherosclerotic calcification of the thoracic aorta. Visualized portions of the thoracic aorta are normal in caliber. The aortic arch demonstrates bovine variant anatomy. Right carotid arterial system: The right common carotid artery is widely patent, as are the right internal and external carotid arteries. Calcified plaque is noted in the carotid bulb. Left carotid arterial system: The left common carotid artery is widely patent, as are the left internal and external carotid arteries. Calcified plaque is noted in the carotid bulb. Vertebral arteries: The vertebral arteries are widely patent bilaterally and codominant. Subclavian arteries: Widely patent bilaterally. Intracranial vasculature: There is atherosclerotic calcification of the cavernous carotid and vertebral arteries. The [place] is developmentally complete. The internal carotid arteries are patent at the skull base, as are the anterior and middle cerebral arteries bilaterally. The vertebrobasilar system and posterior cerebral arteries are widely patent. The vertebral arteries are codominant. There is no aneurysm, high-grade stenosis, or focal vessel cut off seen throughout the intracranial circulation. Jugular veins: Patent bilaterally. Dural sinuses: Patent. Lung apices: There is mild emphysematous change. The imaged apical lung parenchyma is otherwise clear. Soft tissues: The visualized pharyngeal soft tissues are normal in appearance noting angiographic phase technique. The oropharyngeal airway appears widely patent. The thyroid gland is enlarged and heterogeneous, typical for goiter. The salivary glands are normal in appearance. No cervical lymphadenopathy is seen. Skeletal structures: The skeletal structures are osteopenic. The calvarium appears intact. The cervical spine is maintained noting multilevel spondylosis. Orbits: The bony orbits are intact. Orbital contents are normal as visualized noting bilateral ocular lens implants. Sinuses and mastoids: There is trace mucosal thickening within the left sphenoid sinus, the right frontal sinus, and the ethmoid sinuses. The mastoid air cells are well pneumatized. IMPRESSION: 1. There is no hemorrhage, mass effect, or evidence of acute territorial ischemia by CT criteria. 2. Unremarkable CT angiogram of the brain. 3. Unremarkable CT angiogram of the neck. ACT 112: Negative or not required by law. Electronically signed by: Dave Maradiaga M.D. 01/08/2024 8:[address] 01/08/24 07:44 CT SCAN OF THE CERVICAL SPINE CLINICAL HISTORY: Fall. COMPARISON STUDY: CT angiogram of the neck dated 12/09/2017. TECHNIQUE: CT scan of the cervical spine is performed from the skull base to the upper thoracic spine. Images are reviewed in the axial, sagittal, and coronal planes. IV contrast was not administered for this examination. A dose lowering technique was utilized adhering to the principles of ALARA. CT DOSE: 1476.13 mGy.cm FINDINGS: Skeletal structures: The skeletal structures are osteopenic. There is no evidence of fracture or subluxation involving the cervical spine. Vertebral body height is maintained. There is 4 mm anterolisthesis at C4-C5. Alignment is otherwise preserved. There is straightening of the cervical lordosis with minimal reversal centered at C5. Anterior osteophytes are seen throughout. The odontoid process and lateral masses are intact. The atlantoaxial articulation is preserved noting productive degenerative change. The spinous processes appear intact. There is mild to moderate multilevel cervical spondylosis. Uncovertebral and facet arthropathy contribute to neural foraminal narrowing at several levels. Intervertebral discs: There is severe disc space narrowing at C3-C4 and C5-C6. Endplate sclerosis is noted C5-C6. Moderate distress narrowing is seen at C4-C5 and C6-C7. Central canal: A small posterior disc osteophyte complex at C5-C6 may contribute to mild acquired compromise of the central canal. Soft tissues: The prevertebral and paraspinous soft tissues are within normal limits. The thyroid gland is enlarged and heterogeneous, typical for goiter. There is atherosclerotic calcification of the carotid bulbs. Calvarium: The visualized calvarium at the skull base appears intact. Brain parenchyma: Partially visualized brain parenchyma at the skull base is within normal limits. Mastoids: The mastoid air cells are well pneumatized. Lung apices: Clear as visualized. IMPRESSION: 1. There is no evidence of fracture or subluxation involving the cervical spine. 2. Osteopenia and spondylotic change as above. ACT 112: Negative or not required by law. Electronically signed by: Dave Maradiaga M.D. 01/08/2024 9:00 AM ECG Data Attestation: I personally reviewed and interpreted this ECG as follows: Rate (beats per minute): 81 Rhythm: + sinus with SA ECG Intervals/blocks: + Normal QRS, + Normal NE and + Normal QT-c ECG ST segments: + Normal ST segments MDM Narrative 0730: The patient was evaluated in room B2. A complete history and physical exam was performed Cardiac monitoring: An order was placed for continuous cardiac monitoring. The monitor shows a rate of 80 with sinus rhythm interpreted by me No code stroke called as patient's last well normal was 7:30 PM last night. Patient is not a TNKase candidate. 0830: Patient became hypoxic on room air. Supplemental oxygen applied via nasal cannula to improve the patient's oxygen saturation. Patient does appear more alert. 0915: Patient's family is at bedside. Labs and imaging are unremarkable. Family is concerned that the patient may have taken too much oxycodone and she is opiate luis m. We attempted to discontinue the patient's oxygen saturation will continue to observe the patient. 0953: Patient alert and oriented x 3 dysarthria and aphasia have improved however the patient's oxygen saturation keeps going down and the patient required supplemental oxygen via nasal cannula. Patient will be admitted to the [facility] team. Impression & Plan Hypoxia, Stroke-like symptoms Discharge Plan Visit Data Chief Complaint: Altered Mental Status Stated Complaint: AMS, FALL, ED Provider: Rikki Shearer Discharge Problem: Hypoxia, Stroke-like symptoms Patient Disposition: Admitted As Inpatient Forms Stand Alone Forms: [facility] [place] LX Therapies Prescriptions Prescriptions: No Action latanoprost 0.005 % drops 1 drp OPB HS omeprazole 20 mg Tablet,Delayed Release (Dr/Ec) 20 mg PO QAM amlodipine 2.5 mg Tablet 2.5 mg PO QPM losartan 50 mg Tablet 50 mg PO QAM cholecalciferol (vitamin D3) [Vitamin D3] 125 mcg (5,000 unit) Tablet 125 mcg PO QAM turmeric 400 mg Capsule 400 mg PO BID aspirin [Aspir-81] 81 mg Tablet,Delayed Release (Dr/Ec) 81 mg PO DAILY alprazolam 0.25 mg tablet 0.25 mg PO DAILY PRN (Reason: Anxiety) Referrals Referrals: Sharon Terry CRNP [Primary Care Provider] -
[2024-01-08] MEDS: OPTIRAY 320 125ml IV ONE (07:56)
[2024-01-08 07:57] LABS: Basophils # (auto) 0.02 K/uL (0.00-0.20); Basophils % (auto) 0.2 %; Eosinophils # (auto) 0.08 K/uL (0.00-0.50); Eosinophils % (auto) 0.7 %; Hematocrit (blood only) 44.3 % (37.0-47.0); Hemoglobin 14.7 g/dl (12.0-16.0); Immature Granulocytes # (auto) 0.05 K/uL (0.01-0.20); Immature Granulocytes % (auto) 0.4 %; Lymphocytes # (auto) 0.95 K/uL (1.20-3.40); Lymphocytes % (auto) 8.5 %; Mean Corpuscular Hemoglobin 29.1 pg (25.0-34.0); Mean Corpuscular Hgb Conc 33.2 g/dL (32.0-36.0); Mean Corpuscular Volume 87.5 fL (80.0-100.0); Mean Platelet Volume 10.5 fL (9.4-12.4); Monocytes # (auto) 0.88 K/uL (0.11-0.59); Monocytes % (auto) 7.9 %; Neutrophils # (auto) 9.19 K/uL (1.40-6.50); Neutrophils % (auto) 82.3 %; Platelet Count 194 K/uL (130-400); RDW Coefficient of Variation 14.6 % (11.5-14.5); RDW Standard Deviation 47.2 fL (36.4-46.3); Red Blood Count 5.06 M/uL (4.20-5.40); White Blood Count 11.17 K/ul (4.8-10.8)
[2024-01-08 08:03] LABS: iSTAT Creatinine 0.8 mg/dl (0.6-1.3); iSTAT Hemoglobin 14.6 g/dl (12.0-16.0); iSTAT Ionized Calcium 1.3 mmol/l (1.12-1.32); iSTAT Potassium 3.7 mmol/L (3.3-5.0)
--- NOTE | 2024-01-08 08:15 | XRay Report ---
SINGLE VIEW CHEST CLINICAL HISTORY: Neurological deficit. Stroke like symptoms. FINDINGS: An AP, portable, upright chest radiograph is compared to study dated 08/04/2021. Correlation is made with chest CT dated 06/18/2020. The heart is enlarged noting atherosclerotic calcification of the thoracic aorta. The pulmonary vasculature is noncongested. Chronic interstitial thickening is sim ilar to previous. There is bibasilar scarring/atelectasis. No airspace consolidation or large pleural effusion is identified. No pneumothorax is seen. The skeletal structures are osteopenic. The bony th orax is grossly intact. Degenerative change is noted in the shoulders and spine. IMPRESSION: Cardiomegaly with no acute cardiopulmonary abnormality identified. ACT 112: Negative or not required by law. Electronically signed by: Dave Maradiaga M.D. 01/08/2024 8:13 AM
[2024-01-08 08:17] LABS: Albumin Globulin Ratio 1.4 (0.9-2); Albumin Level 3.8 gm/dl (3.4-5.0); BUN Creatinine Ratio 27.6 (10-20); Bilirubin,Total 0.9 mg/dl (0.2-1.0); Calcium 9.9 mg/dl (8.6-10.3); Creatinine Clr Calc Pharmacy 50.3 ml/min; Globulin 2.8 gm/dl (2.5-4.0); Magnesium 2.1 mg/dl (1.7-2.4); Potassium 3.8 mmol/L (3.5-5.1); Total Protein 6.6 gm/dl (6.0-8.3)
[2024-01-08 08:21] LABS: Partial Thromboplastin Ratio 0.9; Partial Thromboplastin Time 24 Seconds (21-31); Prothrombin Time 10.7 Seconds (9.0-12.0)
[2024-01-08 08:22] LABS: Troponin I High Sensitivity 7.4 pg/ml (0-14)
--- NOTE | 2024-01-08 08:40 | CT Scan Report ---
UNENHANCED CT OF THE BRAIN; CT ANGIOGRAM OF THE BRAIN; CT ANGIOGRAM OF THE NECK CLINICAL HISTORY: Neurological deficit. Stroke like symptoms. COMPARISON STUDY: CT of the brain dated 01/07/2024. CT angiogram of the head and neck dated 8. TECHNIQUE: Unenhanced axial CT scan of the brain is performed. Subsequently, following the IV adminis tration of 112 of [address] 320, CT angiogram of the head and neck was performed from the aortic arch t o the vertex. Images are reviewed in the axial, sagittal, and coronal planes. 3-D MIPS images are cre ated and assessed. IV contrast was administered without complication. All measurements were calculate d based on NASCET criteria. A dose lowering technique was utilized adhering to the principles of ALA RA. FINDINGS: Brain parenchyma: There is age-related involutional change impression no moderate to advanced subcort ical and periventricular microangiopathic disease. There is no hemorrhage, mass effect, or evidence o f acute territorial ischemia by CT criteria. There is no evidence of enhancing mass lesion on the ang iogram phase images. The ventricles, sulci, and cisterns are prominent secondary to involutional ochoa ge. There is a chronic lacunar infarct in the left basal ganglia. Wagner-white matter differentiation i s preserved. No extra-axial fluid collection is seen. Thoracic aorta: There is atherosclerotic calcification of the thoracic aorta. Visualized portions of the thoracic aorta are normal in caliber. The aortic arch demonstrates bovine variant anatomy. Right carotid arterial system: The right common carotid artery is widely patent, as are the right int ernal and external carotid arteries. Calcified plaque is noted in the carotid bulb. Left carotid arterial system: The left common carotid artery is widely patent, as are the left international logistics analyst al and external carotid arteries. Calcified plaque is noted in the carotid bulb. Vertebral arteries: The vertebral arteries are widely patent bilaterally and codominant. Subclavian arteries: Widely patent bilaterally. Intracranial vasculature: There is atherosclerotic calcification of the cavernous carotid and vertebr al arteries. The [place] of [place] is developmentally complete. The internal carotid arteries are mancuso nt at the skull base, as are the anterior and middle cerebral arteries bilaterally. The vertebrobasil ar system and posterior cerebral arteries are widely patent. The vertebral arteries are codominant. T here is no aneurysm, high-grade stenosis, or focal vessel cut off seen throughout the intracranial ci rculation. Jugular veins: Patent bilaterally. Dural sinuses: Patent. Lung apices: There is mild emphysematous change. The imaged apical lung parenchyma is otherwise clear . Soft tissues: The visualized pharyngeal soft tissues are normal in appearance noting angiographic pha se technique. The oropharyngeal airway appears widely patent. The thyroid gland is enlarged and heter ogeneous, typical for goiter. The salivary glands are normal in appearance. No cervical lymphadenopat hy is seen. Skeletal structures: The skeletal structures are osteopenic. The calvarium appears intact. The cervic al spine is maintained noting multilevel spondylosis. Orbits: The bony orbits are intact. Orbital contents are normal as visualized noting bilateral ocular lens implants. Sinuses and mastoids: There is trace mucosal thickening within the left sphenoid sinus, the right fro ntal sinus, and the ethmoid sinuses. The mastoid air cells are well pneumatized. IMPRESSION: 1. There is no hemorrhage, mass effect, or evidence of acute territorial ischemia by CT criteria. 2. Unremarkable CT angiogram of the brain. 3. Unremarkable CT angiogram of the neck. ACT 112: Negative or not required by law. Electronically signed by: Dave Maradiaga M.D. 01/08/2024 8:38 AM
[2024-01-08 08:54] LABS: Base Excess VBG 3.1 mEq/L; HCO3 VBG 30 mmol/L; PCO2 VBG 51 mmHg (38-50); PO2 VBG 37 mmHg; pH VBG 7.37 (7.36-7.41)
--- NOTE | 2024-01-08 09:02 | CT Scan Report ---
CT SCAN OF THE CERVICAL SPINE CLINICAL HISTORY: Fall. COMPARISON STUDY: CT angiogram of the neck dated 12/09/2017. TECHNIQUE: CT scan of the cervical spine is performed from the skull base to the upper thoracic spine . Images are reviewed in the axial, sagittal, and coronal planes. IV contrast was not administered fo r this examination. A dose lowering technique was utilized adhering to the principles of ALARA. CT DOSE: 1476.13 mGy.cm FINDINGS: Skeletal structures: The skeletal structures are osteopenic. There is no evidence of fracture or subl uxation involving the cervical spine. Vertebral body height is maintained. There is 4 mm anterolisth esis at C4-C5. Alignment is otherwise preserved. There is straightening of the cervical lordosis with minimal reversal centered at C5. Anterior osteophytes are seen throughout. The odontoid process and lateral masses are intact. The atlantoaxial articulation is preserved noting productive degenerative change. The spinous processes appear intact. There is mild to moderate multilevel cervical spondylosi s. Uncovertebral and facet arthropathy contribute to neural foraminal narrowing at several levels. Intervertebral discs: There is severe disc space narrowing at C3-C4 and C5-C6. Endplate sclerosis is noted C5-C6. Moderate distress narrowing is seen at C4-C5 and C6-C7. Central canal: A small posterior disc osteophyte complex at C5-C6 may contribute to mild acquired com promise of the central canal. Soft tissues: The prevertebral and paraspinous soft tissues are within normal limits. The thyroid gla nd is enlarged and heterogeneous, typical for goiter. There is atherosclerotic calcification of the c arotid bulbs. Calvarium: The visualized calvarium at the skull base appears intact. Brain parenchyma: Partially visualized brain parenchyma at the skull base is within normal limits. Mastoids: The mastoid air cells are well pneumatized. Lung apices: Clear as visualized. IMPRESSION: 1. There is no evidence of fracture or subluxation involving the cervical spine. 2. Osteopenia and spondylotic change as above. ACT 112: Negative or not required by law. Electronically signed by: Dave Maradiaga M.D. 01/08/2024 9:00 AM
[2024-01-08 09:45] LABS: Influenza A virus by PCR Negative (Neg); Influenza B virus by PCR Negative (Neg); RSV by PCR Negative (Neg); SARS CoV2 RNA(COVID-19) Ceph NEGATIVE (Negative)
--- NOTE | 2024-01-08 10:51 | History & Physical Report ---
Date of Service January 08, 2024 Assessment & Plan (1) Change in mental status: Plan: Status post fall on and was seen in the emergency room. Received oxycodone 5 mg 2 doses since last afternoon and was noted to be drowsy with confusion and questionable dysarthria The change in mental status almost resolved during my examination in the emergency room Apparently scans involving CT of the head CTA and cervical spine CT were unremarkable The change in mental status likely secondary to use of oxycodone which was stopped Will observe the patient in the medical floor was admitted for that PT/OT eval (2) Hypoxia: Plan: Noted to be hypoxic in the emergency room and required initial oxygen administration Her x-ray was unremarkable Later on she was breathing normally on room air No apparent cause of hypoxia noted and will need to be observed (3) Hypertension: Plan: will continue current medications and BP is controlled (4) Fall: Plan: Fell on last and was seen in the emergency room on that day Skeletal survey did not show any fracture (5) Glaucoma: Plan: will continue current medications (6) Hyperlipidemia: (7) GERD (gastroesophageal reflux disease): Plan: continue PPI History of Present Illness Chief Complaint: Acute confusion with drowsiness and difficulty in speaking this morning Primary Care Provider: JUAN Vieira She is an 83-year-old female with significant past medical history of hypertension, hyperparathyroidism, nontoxic multinodular goiter, GERD hyperlipidemia and also back pain apparently has had a fall on and was evaluated in the ER and apparent skeletal survey did not show any fracture and she was sent home on oral oxycodone 5 mg every 6 hourly as needed for pain control. She took 1 dose of oxycodone yesterday afternoon and another dose last night and noted to have increasing drowsiness, difficulty to arouse with some garbled speech and decrease in respiration seen this morning by the daughter. She was brought into the emergency room and CT scan and other labs were unremarkable and the initial examination showed possible pinpoint pupil and slightly decreasing responsiveness without any evidence of decrease in respiration but saturation was noted to be low and initially requiring oxygen. During my examination she came around and she was talking normally denies to have any significant symptoms. Denies any headache, any numbness or tingling in the extremities and does not have any weakness involving any side of the body. No fever and no chills and no problem with urine and bowel habit. The right shoulder pain has been improving. She was admitted to medical floor for observation and to get PT and OT evaluation prior to discharge tomorrow or day after. Allergies Allergy/AdvReac Type Severity Reaction Status Date / Time Ptcbmqi-ACW-AjV Reductase Allergy Intermediate joint pain Verified 10/01/21 15:07 Inhibitor [Wujqjvm-Jbk-Rrg Reductase Inhibitor] gluten AdvReac Intermediate Gastrointestinal Verified 10/01/21 15:07 Upset lactose AdvReac Intermediate Gastrointestinal Verified 10/01/21 15:07 Upset promethazine AdvReac Intermediate GI SYMPTOMS Verified 10/01/21 15:07 Home Medications Medication Instructions Recorded Confirmed Type latanoprost 0.005 % eye drops 1 drp OPB HS 12/09/17 01/08/24 History omeprazole 20 mg tablet,delayed 20 mg PO QAM 12/09/17 01/08/24 History release amlodipine 2.5 mg tablet 2.5 mg PO QPM 04/20/18 01/08/24 History cholecalciferol (vitamin D3) 125 125 mcg PO QAM 07/30/21 01/08/24 History mcg (5,000 unit) tablet (Vitamin D3) losartan 50 mg tablet 50 mg PO QAM 07/30/21 01/08/24 History turmeric 400 mg capsule 400 mg PO BID 07/30/21 01/08/24 History alprazolam 0.25 mg tablet 0.25 mg PO DAILY PRN Anxiety 01/08/24 01/08/24 History aspirin 81 mg tablet,delayed 81 mg PO DAILY 01/08/24 01/08/24 History release Past Med/Surg History Problem List (Updated 01/08/24 @ 10:46 by Terry Prather MD) Change in mental status Stroke-like symptoms (Acute) Hypoxia (Acute) Laceration of lip (Acute) Fall (Acute) Arm pain (Acute) RUQ abdominal pain Status post right knee replacement (~08/2021) S/P hernia repair Colitis Diverticulosis Hypertensive urgency (Acute) GERD (gastroesophageal reflux disease) TIA (transient ischemic attack) Expressive aphasia Encounter for pre-operative examination Osteoarthritis of left hip Diffuse abdominal pain (Acute) Vomiting (Acute) Status post hip surgery (Acute) 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 (Acute) Ischemic stroke (Acute) Dyslipidemia (Acute) Depressive disorder (Acute) Cognitive impairment (Acute) Chronic cerebral ischemia (Acute) Abnormal electrocardiogram (Acute) Right upper quadrant abdominal mass Elevated troponin (Acute) Abdominal pain (Acute) Hypoxia Suspected COVID-19 virus infection Hypokalemia Colitis Glaucoma Stroke 8 + years ago - no residual effects > doesn't follow neuro Hypertension Medical History Glaucoma Follows routinely with eye doctor Hyperlipidemia History of colitis Hx of IBS- constipation related Urinary incontinence NIGHTTIME ISSUE GERD (gastroesophageal reflux disease) Well controlled and stable Surgical History Family history of reaction to anesthesia DAUGHTER>EXTREME NAUSEA S/P excision of lipoma (05/09/20) Right Upper Quadrant Excision of Abdominal Wall Lipoma Dr. Pittman 05/09/2020 Nausea and vomiting after administration of anesthetic agent Hx of inguinal hernia surgery (01/10/19) Open Right Indirect Inguinal Hernia Repair Without Mesh, Lipoma of Round Ligament Dr. Pittman 01/10/19 History of left inguinal hernia repair History of left hip replacement History of colonoscopy History of bilateral cataract extraction History of total left knee replacement Family History Mother , Mother age 44 of liver cancer. Liver cancer Father , Father age 66 of respiratory failure/COPD COPD (chronic obstructive pulmonary disease) Other No pertinent family history Social History Smoking Status: Never smoker Tobacco Type: Cigarettes Second Hand Exposure: No; Do You Dip or Chew Tobacco: No; Hx Alcohol Use: No Hx Substance Use: No Preferred Language: Chinese Communication Ability: Effective Visual Impairment: No Limitations Cloth Bleaching Supervisor Required: No Beliefs That Will Affect Care: None marital status: Current Living Situation: Spouse Current Living Situation Comment: live in [place] current occupational status: retired 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 How many Children do You have: 4 Feels Safe at Home: Yes Assistive Devices: None Review of Systems Review of Systems: All systems reviewed and are unremarkable except as noted below Physical Exam Physical Exam: Lying in bed without any apparent distress Constitutional: well developed, well nourished and + ill appearing Eyes: PERRL, conjunctivae normal, anicteric sclerae ENMT: external ear and nose normal, oropharynx normal Neck: trachea midline, no thyromegaly Respiratory: no respiratory distress Auscultation: lungs clear to auscultation bilaterally; no crackles Cardiovascular: Rate/Rhythm: regular rate and regular rhythm; not tachycardic Heart Sounds: normal S1 and normal S2; no murmur Extremities: no edema Gastrointestinal (Abdomen): Inspection/Auscultation: normal bowel sounds; abdomen not distended Percussion/Palpation: abdomen soft; abdomen nontender Musculoskeletal: Minimal pain with movement of the right shoulder Neurologic: normal touch/pain/proprioception and moves all extremities; no focal motor deficits and not confused Psychiatric: A+Ox3, euthymic affect Lymphatic: no cervical or axillary lymphadenopathy Results & Data Results & Data Vital Signs (Past 12 Hours) Vital Signs Temp Pulse Resp BP Pulse Ox O2 Del Method 01/08/24 09:42 73 22 97 01/08/24 09:30 121/80 01/08/24 09:09 77 20 95 01/08/24 09:00 74 19 95 01/08/24 09:00 115/76 01/08/24 08:37 74 01/08/24 08:33 75 17 98 01/08/24 08:33 86 L Nasal Cannula 01/08/24 08:30 127/71 01/08/24 07:34 36.6 C 84 20 144/96 H 96 Room Air Laboratory Results Short CBC 01/08/24 Range/Units 07:40 WBC 11.17 H (4.8-10.8) K/ul Hgb 14.7 (12.0-16.0) g/dl Hct 44.3 (37.0-47.0) % Plt Count 194 (130-400) K/uL BMP 01/08/24 07:40 Sodium 141 Potassium 3.8 Chloride 107 Carbon Dioxide 28 BUN 21 Creatinine 0.76 Glucose 108 H Calcium 9.9 Cardiac Enzymes 01/08/24 Range/Units 07:40 Total Creatine Kinase 15 L (26-192) U/L Liver Function 01/08/24 Range/Units 07:40 Total Bilirubin 0.9 (0.2-1.0) mg/dl AST 17 (13-39) U/L ALT 13 (7-52) U/L Alkaline Phosphatase 75 (34-104) U/L Albumin 3.8 (3.4-5.0) gm/dl I suspect Medications Administered Current Inpatient Medications Heparin Sodium (Porcine) (Heparin Sod 5,000 Unit/0.5 Ml Vial) 5,000 units SQ Q12 ISABEL Stop: 02/07/24 20:59 Code Status & VTE Plan VTE Prophylaxis Plan VTE Prophylaxis will be ordered: Yes (3) Hypertension Hypertension type: essential hypertension Qualified Code(s): I10 - Essential (primary) hypertension
--- NOTE | 2024-01-08 11:52 | Electrocardiogram Report ---
Test Reason : Blood Pressure : */* mmHG Vent. Rate : 81 BPM Atrial Rate : 81 BPM P-R Int : 154 ms QRS Dur : 82 ms QT Int : 376 ms P-R-T Axes : 65 -7 41 degrees QTcB Int : 436 ms Normal sinus rhythm with PACs Abnormal ECG When compared with ECG of 04-Aug-2021 13:27, Nonspecific T wave abnormality has replaced inverted T waves in Inferior leads Nonspecific T wave abnormality, improved in Anterior leads Confirmed by Carson De La Garza ([id number]) on 01/08/2024 11:51:53 AM Referred By: REFERRED SELF Confirmed By: Carson De La Garza
[2024-01-08 16:23] VITALS: RESP 18
[2024-01-08] MEDS: ONDANSETRON INJ 2 MG/ML 2 ML VIAL IV STA (20:42)
[2024-01-08] MEDS: amLODIPine BESYLATE 5 MG TAB PO SCH (20:42)
[2024-01-08] MEDS: HEPARIN SOD 5,000 UNIT/0.5 ML VIAL SQ SCH (20:43)
[2024-01-08] MEDS: PANTOprazole 40 MG TAB PO STA (21:30)
[2024-01-08] MEDS: LATANOPROST 0.005% OP SOLN 2.5 ML BTL OPB SCH (21:30)
[2024-01-09 07:35] VITALS: BP 133/83; PULSE 72; TEMP 97.7; O2SAT 93
--- NOTE | 2024-01-09 08:09 | Hospitalist Progress Note ---
Date of Service January 09, 2024 Assessment & Plan (1) Change in mental status: (2) Hypoxia: (3) Hypertension: (4) Fall: (5) Glaucoma: (6) Hyperlipidemia: (7) GERD (gastroesophageal reflux disease): Plan status post fall on and was seen in the emergency room. Received oxycodone 5 mg 2 doses since last afternoon and was noted to be drowsy with confusion and questionable dysarthria The change in mental status almost resolved during my examination in the emergency room Apparently scans involving CT of the head CTA and cervical spine CT were unremarkable The change in mental status likely secondary to use of oxycodone which was stopped Will observe the patient in the medical floor was admitted for that PT/OT eval (2) Hypoxia: Plan: Noted to be hypoxic in the emergency room and required initial oxygen administration Her x-ray was unremarkable Later on she was breathing normally on room air No apparent cause of hypoxia noted and will need to be observed (3) Hypertension: Plan: will continue current medications and BP is controlled (4) Fall: Plan: Fell on last and was seen in the emergency room on that day Skeletal survey did not show any fracture (5) Glaucoma: Plan: will continue current medications (6) Hyperlipidemia: (7) GERD (gastroesophageal reflux disease): Plan: continue PPI Admission and Anticipated Discharge Date Admission Date: January 08, 2024 Results & Data Results & Data Vital Signs (Past 12 Hours) Vital Signs Temp Pulse Pulse Resp BP Pulse Ox O2 Del Method 01/09/24 07:34 36.5 C 72 18 133/83 93 Nasal Cannula 01/09/24 07:23 74 01/09/24 03:23 36.7 C 74 18 125/74 95 Nasal Cannula 01/08/24 23:23 37.2 C 77 18 143/81 H 93 Nasal Cannula 01/08/24 22:33 79 01/08/24 20:09 37.2 C 77 18 144/79 H 91 Room Air O2 Flow Rate 01/09/24 07:34 2 01/09/24 07:23 01/09/24 03:23 2 01/08/24 23:23 2 01/08/24 22:33 01/08/24 20:09 (3) Hypertension Hypertension type: essential hypertension Qualified Code(s): I10 - Essential (primary) hypertension
[2024-01-09] MEDS ORDERED: POLYETHYLENE (MIRALAX) 17 GM PACK PO PRN (08:20)
[2024-01-09] MEDS: CHOLECALCIFEROL 125 MCG (5,000 UNITS) TAB PO SCH (08:33)
[2024-01-09] MEDS: OMEPRAZOLE 20 MG PO SCH (08:33)
[2024-01-09] MEDS: ASPIRIN 81 MG ECTAB PO SCH (08:33)
[2024-01-09] MEDS: LOSARTAN POTASSIUM 50 MG TAB PO SCH (08:33)
[2024-01-09] MEDS: DOCUSATE SODIUM 100 MG CAP PO ONE (08:52)
[2024-01-09 09:17] LABS: BUN Creatinine Ratio 27.4 (10-20); Calcium 9.7 mg/dl (8.6-10.3); Creatinine Clr Calc Pharmacy 50.6 ml/min; Potassium 3.8 mmol/L (3.5-5.1)
[2024-01-09 09:44] LABS: Hematocrit (blood only) 41.3 % (37.0-47.0); Hemoglobin 13.6 g/dl (12.0-16.0); Mean Corpuscular Hemoglobin 28.5 pg (25.0-34.0); Mean Corpuscular Hgb Conc 32.9 g/dL (32.0-36.0); Mean Corpuscular Volume 86.4 fL (80.0-100.0); Mean Platelet Volume 11.1 fL (9.4-12.4); Platelet Count 219 K/uL (130-400); RDW Coefficient of Variation 14.6 % (11.5-14.5); RDW Standard Deviation 46.4 fL (36.4-46.3); Red Blood Count 4.78 M/uL (4.20-5.40); White Blood Count 7.23 K/ul (4.8-10.8)
[2024-01-09 10:07] LABS: Appearance Urine Turbid (Clear); Bacteria Urine Automated 2+ (None Seen); Bilirubin Urine 1+ (Negative); Blood Urine Negative (Negative); Cast Urine Automated 0-2 /lpf (0-2); Color Urine Dark Yellow; Epithelial Cell Urine Auto >20 /hpf (0-2); Glucose Urine UA Negative (Negative); Ketones Urine Trace (Negative); Leukocyte Esterase Urine 2+ (Negative); Mucus Urine Present (None Prsent); Nitrite Urine Negative (Negative); Protein Urine Trace (Negative); Specific Gravity Urine 1.032 (1.000-1.030); Urobilinogen Urine Negative (Negative); WBC Urine Automated >50 /hpf (0-5); pH Urine 5.5 (4.5-7.5)
--- NOTE | 2024-01-09 10:17 | Discharge Summary ---
Discharge Summary Date of Service January 09, 2024 Principal Dx & Hospital Course #1 = Principal Diagnosis (1) Change in mental status: (2) Hypoxia: (3) Hypertension: (4) Fall: (5) Glaucoma: (6) Hyperlipidemia: (7) GERD (gastroesophageal reflux disease): Plan Ms. Elizabeth is an 83-year-old female with significant past medical history of hypertension, hyperparathyroidism, nontoxic multinodular goiter, GERD hyperlipidemia and also back pain who was admitted for evaluation of acute encephalopathy. Patient apparently had a fall on and was evaluated in the ER and apparent skeletal survey did not show any fracture and she was sent home on oral oxycodone 5 mg every 6 hourly as needed for pain control. Patient took oxycodone and shortly thereafter was drowsy and with notable confusion, slurred speech. Imaging was negative for stroke. It was thought that likely side effect of medication. Leukocytosis on admission prompted UA to be collected, which seemed to be a poor sample and c/w dehydration, ?infection--though notable contaminated sample. Patient reportedly tired, but at baseline per family. Discussed the addition of Augmentin for 5 days given concern for ?cystitis. Encouraged po intake. Family agreed to plan. #Acute encephalopathy iso medication status post fall on and was seen in the emergency room. Received oxycodone 5 mg 2 doses since last afternoon and was noted to be drowsy with confusion and questionable dysarthria at baseline on d/c CT of the head CTA and cervical spine CT were unremarkable declined PT/OT #Hypoxia: resolved Noted to be hypoxic in the emergency room and required initial oxygen administration Her x-ray was unremarkable Later on she was breathing normally on room air No apparent cause of hypoxia noted and will need to be observed #Hypertension: Plan: will continue current medications and BP is controlled #Mechanical Fall: #Right elbow swelling Fell on last and was seen in the emergency room on that day Skeletal survey did not show any fracture Tylenol prn recommended and IC Notes For Next Care Provider Medication Changes From Visit Augmentin BID-active UA and given poor po intake recently, ams, fall--will opt to treat for short course Admission HPI Per Admitting Provider She is an 83-year-old female with significant past medical history of hypertension, hyperparathyroidism, nontoxic multinodular goiter, GERD hyperlipidemia and also back pain apparently has had a fall on and was evaluated in the ER and apparent skeletal survey did not show any fracture and she was sent home on oral oxycodone 5 mg every 6 hourly as needed for pain control. She took 1 dose of oxycodone yesterday afternoon and another dose last night and noted to have increasing drowsiness, difficulty to arouse with some garbled speech and decrease in respiration seen this morning by the daughter. She was brought into the emergency room and CT scan and other labs were unremarkable and the initial examination showed possible pinpoint pupil and slightly decreasing responsiveness without any evidence of decrease in respiration but saturation was noted to be low and initially requiring oxygen. During my examination she came around and she was talking normally denies to have any significant symptoms. Denies any headache, any numbness or tingling in the extremities and does not have any weakness involving any side of the body. No fever and no chills and no problem with urine and bowel habit. The right shoulder pain has been improving. She was admitted to medical floor for observation and to get PT and OT evaluation prior to discharge tomorrow or day after. Admission Exam Per Admitting Provider Lying in bed without any apparent distress Constitutional: well developed, well nourished and + ill appearing Eyes: PERRL, conjunctivae normal, anicteric sclerae ENMT: external ear and nose normal, oropharynx normal Neck: trachea midline, no thyromegaly Respiratory: no respiratory distress Auscultation: lungs clear to auscultation bilaterally; no crackles Cardiovascular: Rate/Rhythm: regular rate and regular rhythm; not tachycardic Heart Sounds: normal S1 and normal S2; no murmur Extremities: no edema Gastrointestinal (Abdomen): Inspection/Auscultation: normal bowel sounds; abdomen not distended Percussion/Palpation: abdomen soft; abdomen nontender Musculoskeletal: Minimal pain with movement of the right shoulder Neurologic: normal touch/pain/proprioception and moves all extremities; no focal motor deficits and not confused Psychiatric: A+Ox3, euthymic affect Lymphatic: no cervical or axillary lymphadenopathy Discharge Exam Constitutional WD/WN, vitals as above Respiratory normal respiratory effort, lungs clear to auscultation Cardiovascular RRR, no murmur, no edema Musculoskeletal slight right elbow swelling Updated Medication List Medication Instructions Recorded Confirmed Type latanoprost 0.005 % eye drops 1 drp OPB HS 12/09/17 01/08/24 History amlodipine 2.5 mg tablet 2.5 mg PO QPM 04/20/18 01/08/24 History cholecalciferol (vitamin D3) 125 125 mcg PO QAM 07/30/21 01/08/24 History mcg (5,000 unit) tablet (Vitamin D3) losartan 50 mg tablet 50 mg PO QAM 07/30/21 01/08/24 History turmeric 400 mg capsule 400 mg PO BID 07/30/21 01/08/24 History alprazolam 0.25 mg tablet 0.25 mg PO DAILY PRN Anxiety 01/08/24 01/08/24 History aspirin 81 mg tablet,delayed 81 mg PO DAILY 01/08/24 01/08/24 History release omeprazole 20 mg capsule,delayed 20 mg PO DAILY 01/08/24 01/08/24 History release amoxicillin 500 mg-potassium 1 tab PO BID #10 tabs 01/09/24 Rx clavulanate 125 mg tablet (Augmentin) Hospital Stay Data Consultations 01/08/24 10:24 ED Decision to Admit Stat Diagnostic Imagining Performed 01/08/24 07:37 CT angio head w con Stat CT angio neck with con Stat CT head/brain wo con Stat 01/08/24 07:44 CT cervical spine wo con Stat Pending Results Patient Have Any Pending Studies at Discharge: Yes Discharge Instructions Given to Patient (Per Discharging Provider) You were admitted for altered mental status and stroke rule out. All imaging is normal and there were no concerns for stroke.It is suspected to be medication related given the new addition of oxycodone. Please trial pain management with tylenol 650mg every 4-6 hours as needed, as well as ice packs. A Urine sample was collected. You will be contacted for the results. Total Time Total Time Spent Total Time Spent (In Minutes): 35
[2024-01-09] MEDS: guaiFENesin 600 MG TABCR PO ONE (10:21)
== END 2024-01-09 11:42 | disposition home or self-care (01) | DRG 93 ==
LOC: ED 07:22 → 2W 10:33 → INTOOBSV 10:33 → OBSVTOIN 10:33 → SUATTDRO 10:33 → 2W 12:55